=== PATIENT | female | born 1975 | race Asian ===

== ENCOUNTER 2022-01-19 13:45 | Outpatient (REF) | payer OTHER, SELFPAY ==
--- NOTE | ~2022-01-19 | US_ITS ---
EXAMINATION: US PELVIS CLINICAL INFORMATION: Dysmenorrhea COMPARISON: None TECHNIQUE: Ultrasound of the pelvis is performed using both transabdominal and transvaginal transducers along with Doppler. Transvaginal imaging is performed due to inadequate visualization transabdominally. FINDINGS: The uterus is anteverted and measures 12 x 5 x 7.6 cm in dimension. There are multiple, at least 4, focal hypoechoic uterine lesions suggestive of fibroids. These measure 3 x 2.7 x 2.9 cm in the anterior uterine body, 3.3 x 2.3 x 2.7 cm in the anterior upper uterine body or fundus, 2.5 x 2.7 x 2.5 cm in the upper posterior uterine body or fundus near the endometrium and 5 mm in the posterior uterine body. Endometrial thickness is normal measuring 0.4 cm. The cervix is normal. The ovaries are normal. The right ovary measures 2.2 x 1.6 x 2 cm. The left ovary measures 2.8 x 2.5 x 1.5 cm. There is no fluid in the pelvis. US/US pelvic and transvaginal IMPRESSION: Uterine fibroids.
== END 2022-01-19 13:46 | disposition home or self-care (01) ==
LOC: HO.US 13:45
PROVIDERS: PCP Advanced Practice Midwife; Visit Provider Advanced Practice Midwife
DX: N94.6 Dysmenorrhea, unspecified (principal)
CPT/HCPCS: 76830; 76856

== ENCOUNTER 2022-01-19 14:49 | Outpatient (REF) | payer OTHER, SELFPAY ==
--- NOTE | ~2022-01-19 | MM_ITS ---
EXAMINATION: MM SCREENING DIGITAL BREAST TOMOSYNTHESIS, BILATERAL CLINICAL INFORMATION: Screening. Asymptomatic. Age 46. Prior mammography 2012 [place] the [place] unavailable. No known family history breast cancer. The lifetime risk of breast cancer based on the Tyrer-Cuzick Model is 8%. COMPARISON: None. TECHNIQUE: Digital breast tomosynthesis is performed in both the craniocaudal and mediolateral oblique views along with computer-aided detection (CAD). Synthesized 2D images are generated from the tomosynthesis. Additional left MLO view is provided. FINDINGS: The breasts are heterogeneously dense, which may obscure small masses (ACR BI-RADS breast composition Category c). There are no significant masses, abnormal calcifications, or other abnormalities. The axilla and skin contours are unremarkable. If previous outside mammography is able to be retrieved, we will be able to make comparison in an addendum report. MM/MM tomosynthesis screening BI IMPRESSION: No mammographic evidence of malignancy. ASSESSMENT: BI-RADS 1: Negative RECOMMENDATION: Routine annual mammography screening. This patient's information was entered into a reminder system with a target due date for their next mammogram.
== END 2022-01-19 14:50 | disposition home or self-care (01) ==
LOC: HO.MAMMO 14:49
PROVIDERS: PCP Advanced Practice Midwife; Visit Provider Advanced Practice Midwife
DX: Z12.31 Encounter for screening mammogram for malignant neoplasm of breast (principal)
CPT/HCPCS: 76830; 76856; 77063; 77067

== ENCOUNTER 2022-12-28 11:44 | Outpatient (REF) | payer OTHER, SELFPAY | END 2022-12-28 11:45 | disposition home or self-care (01) | LOC: HO.LAB 11:44 | PROVIDERS: Visit Provider Internal Medicine | DX: N91.2 Amenorrhea, unspecified (principal) | CPT/HCPCS: 36415; 80076; 84443; 84702 ==

== ENCOUNTER 2023-02-20 13:11 | Outpatient (REF) | payer OTHER, SELFPAY ==
--- NOTE | ~2023-02-20 | US_ITS ---
EXAMINATION: US PELVIS CLINICAL INFORMATION: Pelvic pain. LMP 02/09/2023 COMPARISON: 01/19/2022 TECHNIQUE: Ultrasound of the pelvis is performed using both transabdominal and transvaginal transducers along with Doppler. Transvaginal imaging is performed due to inadequate visualization transabdominally. FINDINGS: Uterus: The uterus is anteverted and measures 12.5 x 5.0 x 5.6 cm. Uterine echotexture is heterogeneous. Right intramural fibroid measures 2.8 x 2.7 x 2.7 cm. Right intramural fibroid measures 2.7 x 2.3 x 2.1 cm. Right subserosal fibroid measures 1.8 x 1.6 x 1.7 cm. Left intramural fibroid measures 1.6 x 1.9 x 1.5 cm. Possible lower uterine segment fibroid measures 1.2 x 1.2 x 1.7 cm. The double wall endometrial thickness is 0.7 mm. Adnexa: Both ovaries are visualized. There is normal color flow to the adnexa. There is trace pelvic ascites. Right ovary measures 2.2 x 1.2 x 1.3 cm. Left ovary measures 2.8 x 2.2 x 3.0 cm. US/US pelvic and transvaginal IMPRESSION: Fibroid uterus.
== END 2023-02-20 13:12 | disposition home or self-care (01) ==
LOC: HO.US 13:11
PROVIDERS: PCP Internal Medicine; Visit Provider Internal Medicine
DX: R10.2 Pelvic and perineal pain (principal)
CPT/HCPCS: 76830; 76856

== ENCOUNTER 2023-06-23 09:20 | Emergency (ER) | payer OTHER, SELFPAY ==
--- NOTE | ~2023-06-23 | XR_ITS ---
EXAMINATION: XR CHEST CLINICAL INFORMATION: Chest pain. COMPARISON: None available. TECHNIQUE: Frontal view of the chest was obtained. FINDINGS: No significant abnormality is noted involving the heart, lungs, mediastinum, bony thorax or soft tissues. XR/XR chest 1V IMPRESSION: Unremarkable examination.
--- NOTE | ~2023-06-23 | CT_ITS ---
EXAMINATION: CT SCAN OF THE TEMPORAL BONES WITHOUT CONTRAST CLINICAL INFORMATION: Left otitis media, mastoiditis due to palpation COMPARISON: None available. TECHNIQUE: Multidetector helical imaging was performed in the axial plane with generation of oblique axial and coronal reformatted projections. This CT examination was performed using dose optimization techniques as appropriate, variously including the following: *Automated exposure control *Adjustment of mA and/or kV according to patient size (this includes techniques or standardized protocols for targeted exams where dose is matched to indication/reason for exam; i.e. extremities or head) *Use of iterative reconstruction technique DLP: 279 mGy-cm. FINDINGS: --Right Temporal Bone -- The middle ear cleft is clear and the ossicles are normal. Normal mineralization of the otic capsule and fissula ante fenestram is noted. The cochlea, vestibule, vestibular aqueduct, and facial nerve course are normal. The semicircular canals are normal. The internal auditory canal is normal. The external auditory canal is normal. The mastoid air cells are well aerated. The right carotid canal and jugular foramen are normal. Mild degenerative changes of the temporomandibular joint. --Left Temporal Bone -- The middle ear cleft is clear and the ossicles are normal. Normal mineralization of the otic capsule and fissula ante fenestram is noted. The cochlea, vestibule, vestibular aqueduct, and facial nerve course are normal. The semicircular canals are normal. The internal auditory canal is normal. The external auditory canal is normal. Trace opacification of the left mastoid tip. The left carotid canal and jugular foramen are normal. The temporomandibular joint is normal. -- Other Findings -- The visualized paranasal sinuses are well aerated. The visualized intracranial structures are within normal limits. CT/CT mastoid IMPRESSION: Trace opacification of the left mastoid tip. The middle ear cavities and mastoid air cells are otherwise essentially clear.
--- NOTE | 2023-06-23 09:23 | ECG_ITS ---
Test Reason : CP Blood Pressure : / mmHG Vent. Rate : 094 BPM Atrial Rate : 094 BPM P-R Int : 160 ms QRS Dur : 072 ms QT Int : 358 ms P-R-T Axes : 043 040 026 degrees QTc Int : 447 ms Normal sinus rhythm Nonspecific ST and T wave abnormality Borderline ECG No previous ECGs available Referred By: Generic ED Physician Electronically Signed By:LUCY HOUSTON
[2023-06-23 09:40] VITALS: BP 153/85; PULSE 88; RESP 20; TEMP 35.9; O2SAT 98; BMI 32.2
[2023-06-23 09:43] LABS: MANUAL DIFF FLAG NO
[2023-06-23 09:45] LABS: Basophils Percent Auto 0.3 % (0-2); Eosinophils Absolute Auto 0.1 X10*3/uL (0.0-0.4); Hematocrit 35.2 % (37.0-47.0); Imm Gran Abs Auto 0.04 X10*3/uL (0.00-0.03); Imm Gran Pct Auto 0.3 % (0.0-0.4); Lymphocytes Absolute Auto 2.6 X10*3/uL (1.2-4.9); Lymphocytes Percent Auto 22.3 % (20-40); Mean Corpuscular HGB Conc 31.3 g/dl (31.0-35.0); Mean Corpuscular Hemoglobin 18.9 pg (27.0-33.0); Mean Platelet Volume 10.1 fL (9.4-12.3); Monocytes Absolute Auto 0.8 X10*3/uL (0.1-1.2); Monocytes Percent Auto 6.4 % (2-11); Neutrophils Absolute Auto 8.1 x10*3/uL (2.0-8.3); Neutrophils Percent Auto 69.7 % (45-73); Platelet Count 379 X10*3/uL (160-400); Red Blood Count 5.82 X10*6/uL (4.20-5.50); Red Cell Distribution Width 16.6 % (11.0-16.0)
[2023-06-23 09:53] LABS: Mean Corpuscular Volume 60.5 fL (80.0-98.0)
[2023-06-23 09:54] LABS: INTERNATIONAL NORM RATIO 0.9 (0.9-1.1); Prothrombin Time 11.4 SEC (11.1-13.3)
[2023-06-23 10:01] LABS: Alanine Aminotransferase 20 U/L (0-31); Albumin Level 3.7 g/dL (3.5-5.0); Alkaline Phosphatase 64 U/L (39-117); Anion Gap 15 (12-20); Aspartate Amino Transferase 28 U/L (5-31); Bilirubin Direct 0.2 mg/dL (0.0-0.5); Bilirubin Total 0.7 mg/dL (0.0-1.0); Blood Urea Nitrogen 11 mg/dL (9-16); COVID-19 Test Negative (Negative); Calcium 9.2 mg/dL (8.4-10.2); Carbon Dioxide 23 mmol/L (22-29); Chloride 105 mmol/L (96-108); Creatinine Clr Calc Pharmacy 86.4; Estimated Glomerular Filt Rate > 60; Glucose Random 132 mg/dL (60-115); IDNOW Serial# 08D9AD1C; Magnesium 1.7 mg/dL (1.6-2.6); Sodium 139 mmol/L (135-145); Total Protein 7.5 g/dL (6.5-8.0)
[2023-06-23 10:08] LABS: Troponin-I High Sensitivity < 2.7 ng/L (<3.5-17.0)
--- NOTE | 2023-06-23 13:44 | ED.URI ---
HPI - URI/Sore Throat General Chief Complaint: Upper Respiratory Symptoms Stated Complaint: chest pain/ cold like symptoms Time Seen by Provider: 06/23/23 13:07 Source: patient Mode of arrival: ambulatory Limitations: no limitations History of Present Illness HPI Narrative: patient is a 47-year-old female who presents emergency department for evaluation of upper respiratory symptoms. Onset 2 weeks ago. Progressively worsening with cough, body aches, and fevers with T-max 102 degrees at home which responds to Tylenol. The past 5 days she has noticed increased pain predominantly to the left lateral neck, and worsening of her fevers. She previously had a sore throat but this has since resolved. She has intermittent chest tightness predominantly when she is coughing. She states that her daughter was recently ill with similar symptoms but tested negative for COVID and flu. Related Data Previous Rx's Medication Instructions Recorded amoxicillin 500 mg capsule 1,000 mg (2 x 500 mg) PO DAILY 10 06/23/23 days #20 caps Allergies Allergy/AdvReac Type Severity Reaction Status Date / Time Bleach (Sodium Hypochlorite) Allergy Unknown RASH Verified 06/23/23 09:43 [BLEACH (SODIUM HYPOCHLORITE)] Review of Systems Review of Systems: Yes all other systems are reviewed and are negative [facility]LY [facility] Past Medical History Attestation statement: The following information was validated with the patient. Source: old records reviewed Social History Social History (Updated 03/16/22 @ 16:18 by Magno Tinajero) Alcohol intake: never Patient Tobacco Use Status: Never used Tobacco Advance Directives: No Advance Directives Information Provided: No Physical Exam Vital Signs: Vital Signs: Last Vital Signs Temp 96.6 F L 06/23/23 09:40 Pulse 88 06/23/23 09:40 Resp 20 06/23/23 09:40 BP 153/85 H 06/23/23 09:40 Pulse Ox 98 06/23/23 09:40 O2 Del Method Room Air 06/23/23 09:40 BMI result Body Mass Index 32.2 Appearance: Alert.?Oriented to person, place and time. No acute distress.?Normal affect. Eyes: Pupils equal, round and reactive to light.? ENT: TM normal bilaterally. Pharynx Mildly erythematous without exudates, no hypertrophy. No trismus. No drooling. Uvula midline.?? Neck: Normal inspection.? Neck supple.?? Left cervical lymphadenopathy, tenderness upon palpation over the mastoid on the left. CVS: Heart sounds normal. Normal heart rate and rhythm.? Pulses normal.?? Respiratory: No respiratory distress.? Lung sounds clear to auscultation bilaterally?? Abdomen: Soft and non-tender. Normoactive bowel sounds. Skin: Skin warm and dry.? Normal skin color.? ? Extremities: No lower extremity edema.? Neuro: Moves all extremities spontaneously. Sensation intact bilaterally. No motor deficits. Ambulates with normal steady gait. Medical Decision Making Medical Decision Making [facility] Narrative: Patient is a 47-year-old female presenting for evaluation of upper respiratory symptoms. COVID-19 and influenza testing are negative. Strep a testing is positive. CT of the mastoid reveals trace [place] otherwise clear mastoid cells. At this time history and physical exam not consistent with ACS/PE/pneumonia. Well-appearing, nontoxic, afebrile, no tachycardia or tachypnea/hypoxia. Speaking clear full sentences, ambulatory with steady gait. Will send prescription for amoxicillin to pharmacy and advised outpatient follow-up with primary care provider. Discussed conservative treatment including rest, hydration, Tylenol/ibuprofen as needed for fever and body aches, saline nasal spray, humidifier, [id number] cold medication. Advised to follow-up with primary care provider as needed, discussed reasons to return back to the emergency department. All questions were answered. Patient discharged home in stable condition. Differential Diagnosis Differential Diagnoses: The differential diagnosis associated with the presentation includes ( As noted above) Admission/Observation Consideration of admission/observation: Escalation of care including admission/observation considered ( see narrative above) Lab Data [facility] Lab Attestation statement: I reviewed the patient's lab results. strep A positive. COVID and influenza negative. Mild leukocytosis with microcytic anemia that does not meet transfusion criteria. Overall unremarkable CMP. High sensitive troponin negative. 06/23/23 09:39 06/23/23 09:39 Labs: Lab Results 06/23/23 Range/Units 09:39 WBC 11.6 H (4.8-10.8) X10*3/uL RBC 5.82 H (4.20-5.50) X10*6/uL Hgb 11.0 L (12.0-16.0) g/dl Hct 35.2 L (37.0-47.0) % MCV 60.5 L (80.0-98.0) fL MCH 18.9 L (27.0-33.0) pg MCHC 31.3 (31.0-35.0) g/dl RDW 16.6 H (11.0-16.0) % Plt Count 379 (160-400) X10*3/uL MPV 10.1 (9.4-12.3) fL Immature Gran % (Auto) 0.3 (0.0-0.4) % Neut % (Auto) 69.7 (45-73) % Lymph % (Auto) 22.3 (20-40) % Ida % (Auto) 6.4 (2-11) % Eos % (Auto) 1.0 (0-4) % Baso % (Auto) 0.3 (0-2) % Lymph # (Auto) 2.6 (1.2-4.9) X10*3/uL Ida # (Auto) 0.8 (0.1-1.2) X10*3/uL Eos # (Auto) 0.1 (0.0-0.4) X10*3/uL Baso # (Auto) 0.0 (0.0-0.2) X10*3/uL Abs Immat Gran (auto) 0.04 H (0.00-0.03) X10*3/uL Absolute Neuts (auto) 8.1 (2.0-8.3) x10*3/uL Absolute Nucleated RBC 0.000 (0.0-0.012) X10*3/uL Nucleated RBC % (auto) 0.0 (0.0-0.2) /100WBC PT 11.4 (11.1-13.3) SEC INR 0.9 (0.9-1.1) Sodium 139 (135-145) mmol/L Potassium 4.0 (3.3-5.1) mmol/L Chloride 105 (96-108) mmol/L Carbon Dioxide 23 (22-29) mmol/L Anion Gap 15 (12-20) BUN 11 (9-16) mg/dL Creatinine 0.74 (0.5-1.4) mg/dL Estim Creat Clear Calc 86.4 Estimated GFR > 60 Random Glucose 132 H (60-115) mg/dL Calcium 9.2 (8.4-10.2) mg/dL Magnesium 1.7 (1.6-2.6) mg/dL Total Bilirubin 0.7 (0.0-1.0) mg/dL Direct Bilirubin 0.2 (0.0-0.5) mg/dL AST 28 (5-31) U/L ALT 20 (0-31) U/L Alkaline Phosphatase 64 (39-117) U/L Troponin I High Sens < 2.7 (<3.5-17.0) ng/L Total Protein 7.5 (6.5-8.0) g/dL Albumin 3.7 (3.5-5.0) g/dL COVID-19 (NOHEMI) Negative (Negative) COVID-19 Clin Com See Note Independent Interpretation I performed an independent interpretation of an: EKG and Plain X-Ray ( I personally interpreted CXR and agree with radiologist impression.) Radiology Impression Discussion of test interpretation with radiology: I have reviewed the radiologist's reading. Radiologist Impression: XR/XR chest 1V IMPRESSION: Unremarkable examination. CT/CT mastoid IMPRESSION: Trace opacification of the left mastoid tip. The middle ear cavities and mastoid air cells are otherwise essentially clear. External Record Review External record reviewed: Outpatient record Prescription Management I considered prescription management with: Antibiotic Discharge Plan Discharge Clinical Impression: Acute streptococcal pharyngitis Patient Disposition: Home, Self-Care Instructions: Pharyngitis (ED), Strep Throat (ED) Prescriptions: New amoxicillin 500 mg capsule 1,000 mg PO DAILY 10 Days Qty: 20 0RF Referrals: Raissa Veras MD [Primary Care Provider] -
[2023-06-23 14:22] LABS: IDNOW Serial# 58CA691E; Strep A Nucleic Acid Positive (Negative)
[2023-06-23 14:32] LABS: IDNOW Serial# BCCEAD1C; Influenza A Negative (Negative); Influenza B2 Negative (Negative)
[2023-06-23 14:45] VITALS: BP 133/84; PULSE 73; RESP 16; TEMP 36.9; O2SAT 100
[2023-06-26 18:29] LABS: White Blood Count 11.6 X10*3/uL (4.8-10.8)
== END 2023-06-23 15:21 | disposition home or self-care (01) ==
PROVIDERS: Nurse Practitioner Family; Emergency Provider Emergency Medicine; PCP Internal Medicine
DX: J02.0 Streptococcal pharyngitis (principal); R07.89 Other chest pain; R05.9 Cough, unspecified; M79.10 Myalgia, unspecified site; H66.92 Otitis media, unspecified, left ear; Z11.52 Encounter for screening for COVID-19; Z20.822 Contact with and (suspected) exposure to COVID-19; Z79.899 Other long term (current) drug therapy
CPT/HCPCS: 70481; 71045; 80048; 80076; 83735; 84484; 85025; 85610; 87502; 87635; 87651; 93005; 99284

== ENCOUNTER → 2023-06-23 09:23 | Outpatient (BNV) | payer OTHER, SELFPAY | PROVIDERS: Emergency Provider Emergency Medicine; PCP Internal Medicine; Visit Provider Internal Medicine | DX: R07.9 Chest pain, unspecified (principal) | CPT/HCPCS: 93010 ==

== ENCOUNTER 2023-07-02 13:51 | Outpatient (REF) | payer OTHER, SELFPAY ==
[2023-07-03 02:33] LABS: CT PCR NOT DETECTED (Not Detect.); NG PCR NOT DETECTED (Not Detect.)
[2023-07-05 05:09] LABS: Follicle Stimulating Hormone 1.7 mIU/mL; Lutenizing Hormone 1.7 mIU/mL; Prolactin 11.9 ng/mL
[2023-07-07 09:29] LABS: HPV mRNA E6/E7 rflx Not Detected (Not Detected)
== END 2023-07-02 13:52 | disposition home or self-care (01) ==
LOC: HO.LAB 13:51
PROVIDERS: PCP Internal Medicine; Visit Provider Obstetrics & Gynecology
DX: Z01.419 Encounter for gynecological examination (general) (routine) without abnormal findings (principal); Z11.51 Encounter for screening for human papillomavirus (HPV); N93.9 Abnormal uterine and vaginal bleeding, unspecified
CPT/HCPCS: 0353U; 36415; 83001; 83002; 84146; 84443; 84702; 85027; 87624; 88142; 99202

== ENCOUNTER 2023-07-02 13:51 | Outpatient (AMB) | payer OTHER, SELFPAY ==
--- NOTE | 2023-07-02 13:58 | MHC.OFFVIS ---
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 Uterine echotexture is heterogeneous. Right intramural fibroid measures 2.8 x 2.7 x 2.7 cm. Right intramural fibroid measures 2.7 x 2.3 x 2.1 cm. Right subserosal fibroid measures 1.8 x 1.6 x 1.7 cm. Left intramural fibroid measures 1.6 x 1.9 x 1.5 cm. Possible lower uterine segment fibroid measures 1.2 x 1.2 x 1.7 cm. The double wall endometrial thickness is 0.7 mm. Adnexa: Both ovaries are visualized. There is normal color flow to the adnexa. There is trace pelvic ascites. Right ovary measures 2.2 x 1.2 x 1.3 cm. Left ovary measures 2.8 x 2.2 x 3.0 cm. Last co testing was many years ago Last mammogram was BI-RADS 1 in 01/13 [facility] Social History Alcohol intake: never Patient Tobacco Use Status: Never used Tobacco Review of Systems Const All systems reviewed & are unremarkable except as noted in HPI and below Card Reports as per HPI Resp Reports as per HPI GI Reports as per HPI and Reports no additional complaints Reports as per HPI Physical Exam Vital Signs: Last Vital Signs Pulse 86 07/02/23 14:08 BP 130/84 07/02/23 14:08 BMI result Body Mass Index 31.7 Const General: cooperative, healthy appearing and comfortable Chest Chest palpation & inspection: normal inspection of the chest and normal palpation of entire chest wall Breast/axilla inspection: normal inspection of the breasts and normal inspection of the axillae Breast/axilla palpation: normal palpation of the breasts, normal palpation of the axillae and no axillary lymphadenopathy Resp Effort & Inspection: normal respiratory effort Auscultation: clear to auscultation bilaterally Percussion: percussion normal Cardio Palpation: normal PMI Rate: regular rate Rhythm: regular rhythm Heart sounds: no murmurs and no rubs Peripheral pulses: Peripheral pulses 2+ throughout GI Inspection: Yes normal to inspection Palpation (GI): Soft to palpation, nontender, no guarding, not rigid and No hepatosplenomegaly present Percussion: Yes normal to percussion Auscultation: normal bowel sounds Rectal Exam - Female: deferred General: Yes bladder normal to palpation External Female Exam: No lesion Speculum Exam - Vagina: normal appearance of the vagina, normal palpation, normal vaginal discharge and not erythematous Speculum Exam - Cervix: normal appearance of the cervix and normal palpation Bimanual exam- vagina & uterus: normal bimanual exam, normal palpation, uterine size normal, bladder normal to palpation, consistency normal and normal palpation Bimanual Exam- Adnexa, other: normal adnexae, no masses and no tenderness Assessment & Plan Assessment & Plan (1) Abnormal uterine bleeding: Code(s): N93.9 - Abnormal uterine and vaginal bleeding, unspecified Plan: Screening mammogram, Co testing done, GC and chlamydia taken CBC, TSH, HCG, prolactin, FSH/LH order and repeat pelvic ultrasound ordered. Discussed with the patient the different causes of abnormal bleeding including thyroid disorders, uterine and ovarian pathology, endometrial hyperplasia, carcinoma and other potential causes. Discussed with the patient the work up including CBC (to r/o anemia), TSH, pelvic Ultrasound, endometrial biopsy to r/o endometrial pathology. All questions answered and the patient verbalized understanding. Instructed the patient to schedule an appointment for an endometrial biopsy in 2 weeks. Orders: Orders Lutenizing Hormone Today N93.9 - Abnormal uterine and vaginal bleeding, unspecified Complete Blood Count no Diff Today N93.9 - Abnormal uterine and vaginal bleeding, unspecified TSH reflex Free T4 Today N93.9 - Abnormal uterine and vaginal bleeding, unspecified Prolactin Today N93.9 - Abnormal uterine and vaginal bleeding, unspecified HCG Quantitative Today N93.9 - Abnormal uterine and vaginal bleeding, unspecified Follicle Stimulating Hormone Today N93.9 - Abnormal uterine and vaginal bleeding, unspecified US pelvic and transvaginal Today N93.9 - Abnormal uterine and vaginal bleeding, unspecified MM screening mammo BI Today Z12.31 - Encounter for screening mammogram for malignant neoplasm of breast Coding Level of Care Code New Pt Level 3 (45398) Diagnoses Abnormal uterine bleeding N93.9
[2023-07-02 14:08] VITALS: BP 130/84; PULSE 86; BMI 31.7
== END 2023-07-02 16:08 | disposition home or self-care (01) ==
LOC: HO.HWS 13:51
PROVIDERS: PCP Internal Medicine; Visit Provider Obstetrics & Gynecology
DX: N93.9 Abnormal uterine and vaginal bleeding, unspecified (principal)
CPT/HCPCS: 99203

== ENCOUNTER 2023-07-23 14:05 | Outpatient (REF) | payer OTHER, SELFPAY ==
--- NOTE | ~2023-07-23 | US_ITS ---
EXAMINATION: US PELVIS CLINICAL INFORMATION: Dysfunctional uterine bleeding, fibroids, last menstrual period 07/07/2023. COMPARISON: Pelvic ultrasound February 20, 2023. TECHNIQUE: Ultrasound of the pelvis is performed using both transabdominal and transvaginal transducers along with Doppler. Transvaginal imaging is performed due to inadequate visualization transabdominally. FINDINGS: The uterus measures 12.0 x 5.9 x 7.2 cm, volume 264 mL. Visualization is limited due to uterine heterogeneity and multiple fibroids. Largest fibroids as follows: Right 2.9 x 2.8 x 3.4 cm, previously 2.9 x 3.3 x 3.0 cm 2.5 x 2.6 x 3.1 cm, previously 2.7 x 2.3 x 2.1 cm 1.4 x 1.3 x 1.9 cm fibroid not previously imaged. 1.5 x 1.5 x 1.7 cm probable fibroid not previously imaged. 1.3 x 1.2 x 1.7 cm lower uterine segment fibroid, previously 1.3 x 1.2 x 1.7 cm. Endometrial thickness is 13 mm. Nabothian cysts. Right ovary measures 2.5 x 1.4 x 1.3 cm, volume 2.2 mL. Left ovary measures 1.8 x 1.8 x 1.3 cm, volume 2.3 mL. Bilateral ovaries are grossly unremarkable on limited images, and were better visualized on transabdominal ultrasound images. No significant free fluid. US/US pelvic and transvaginal IMPRESSION: 1. Fibroid uterus. 2. Endometrial thickness of 13 mm.
== END 2023-07-23 14:06 | disposition home or self-care (01) ==
LOC: HO.US 14:05
PROVIDERS: PCP Internal Medicine; Visit Provider Obstetrics & Gynecology
DX: N93.9 Abnormal uterine and vaginal bleeding, unspecified (principal)
CPT/HCPCS: 76830; 76856

== ENCOUNTER 2023-07-26 14:03 | Outpatient (AMB) | payer OTHER, SELFPAY ==
--- NOTE | 2023-07-26 14:11 | MHC.OFFVIS ---
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 She has a pleasant 47-year-old woman with history of hypertension for many years. Patient is also recent history of dysmenorrhea and abnormal uterine bleeding with anemia. She has been noticing symptoms of chest pain sometimes with exertion. Sometimes happens at rest. She is also associated exertional shortness of breath. She also has symptoms of palpitation with irregular heartbeat. No prolonged fast heart rate. She denies any orthopnea, PND, leg edema. No lightheadedness, syncope. She comes for evaluation further cardiac history. She had EKG performed in May which showed normal sinus rhythm nonspecific ST T wave changes. She is concerned about underlying cardiovascular disease due to family history. [facility] Medical History HTN (hypertension) Surgical History Hx of lumpectomy Family History Father CAD (coronary artery disease) CHF (congestive heart failure) Mother CAD (coronary artery disease) CHF (congestive heart failure) Social History Alcohol intake: never Patient Tobacco Use Status: Never used Tobacco Review of Systems Eyes Denies loss of vision ENT Denies dizziness and Denies hearing loss Card Denies chest pain, Denies claudication, Denies leg edema, Denies lightheadedness, Denies palpitations, Denies dyspnea, Denies dyspnea on exertion and Denies orthopnea Resp Denies cough, Denies excessive phlegm production, Denies dyspnea, Denies dyspnea on exertion and Denies wheezing GI Denies abdominal pain, Denies hematochezia, Denies change in bowel habits, Denies nausea and Denies vomiting Denies urinary frequency and Denies dysuria Musc Denies arthralgias, Denies muscle weakness, Denies numbness and Denies other (frequent falls) Skin/Breast Denies nail changes and Denies rash Neuro Denies Abnormal speech present, Denies dizziness, Denies loss of vision, Denies memory loss and Denies numbness Psych Denies depression and Denies memory loss Endo Denies palpitations Juaquin/Lymph Reports easy bruising and Reports other (anemia) Aller/Immun Denies wheezing Physical Exam Vital Signs: Last Vital Signs Pulse 86 07/26/23 14:12 BP 120/70 07/26/23 14:12 BMI result Body Mass Index 32.5 Const General: cooperative, comfortable, no acute distress, alert, awake and Physically active Nutritional Appearance: obese Orientation/consciousness: patient oriented x3 Limitations: no limitations HEENT Head: Yes normocephalic and Yes atraumatic Neck Neck: Yes trachea midline, Yes supple and Yes no JVD Resp Effort & Inspection: normal respiratory effort Auscultation: clear to auscultation bilaterally Cardio Jugular venous distension: no JVD Palpation: normal PMI Rate: regular rate Rhythm: regular rhythm Heart sounds: S1 normal heart sound present, S2 normal heart sound present, no click, no gallops, no murmurs and no rubs GI Auscultation: normal bowel sounds Skin General skin exam: no rashes or lesions noted Neuro General: patient oriented x3 and no focal motor deficits Speech: No Abnormal speech present Extrem General: Yes no clubbing, cyanosis or edema Psych Appearance: grossly normal Assessment & Plan Assessment & Plan (1) Chest pain: Code(s): R07.9 - Chest pain, unspecified Plan: Patient intermittent episodes of exertional chest pain with some atypical features as well as shortness of breath on exertion. She has longstanding history of hypertension given her age and abnormal EKG will pursue exercise myocardial perfusion imaging to rule out myocardial ischemia and obstructive coronary artery disease as cause of her symptoms. Will also suggest an echocardiogram to evaluate for LV systolic and diastolic function to evaluate for hypertensive heart disease as well as pulmonary hypertension. These tests will be scheduled in near future. Further treatment based on the findings. It is possible that some of her symptoms are related especially exertional shortness of breath related to deconditioning and weight gain. She is working on the same. (2) Palpitations: Code(s): R00.2 - Palpitations Plan: Symptoms of intermittent palpitations. Would suggest her to have a Holter monitor to further assess for any significant arrhythmias especially atrial fibrillation that could impact long-term prognosis and treatment. This was discussed with her. Avoidance of stimulants was discussed. Stress mitigation strategies were discussed. (3) HTN (hypertension): Code(s): I10 - Essential (primary) hypertension Plan: Hypertension which is currently well optimized. Continue current therapy. Importance of good blood pressure control was discussed advised to monitor blood pressure at home maintain a log. Low-salt diet was discussed. Participate in aggressive lifestyle modification regular physical activity and weight loss program was discussed. She understands agrees. Will follow up in the clinic after above-mentioned test. Thank you for allowing me to partake in her care. Orders: Orders CA stress test Today R07.9 - Chest pain, unspecified ECG 14 day holter monitor Today R00.2 - Palpitations NM cardiolite stress test 2 Weeks R07.9 - Chest pain, unspecified CA echo transthoracic complete Today R07.9 - Chest pain, unspecified Coding Level of Care Code New Pt Level 4 (62301) Diagnoses Chest pain R07.9 Palpitations R00.2 HTN (hypertension) I10
[2023-07-26 14:12] VITALS: BP 120/70; PULSE 86; BMI 32.5
== END 2023-07-26 14:53 | disposition home or self-care (01) ==
PROVIDERS: PCP Internal Medicine; Visit Provider Internal Medicine Cardiovascular Disease
DX: R07.9 Chest pain, unspecified (principal); R00.2 Palpitations; I10 Essential (primary) hypertension
CPT/HCPCS: 99204

== ENCOUNTER → 2023-07-26 14:03 | Outpatient (BNVA) | payer OTHER, SELFPAY | PROVIDERS: PCP Internal Medicine; Visit Provider Internal Medicine Cardiovascular Disease | DX: R07.9 Chest pain, unspecified (principal); R00.2 Palpitations; I10 Essential (primary) hypertension | CPT/HCPCS: 99202 ==

== ENCOUNTER 2023-08-15 14:02 | Outpatient (REF) | payer OTHER, SELFPAY | END 2023-08-15 14:03 | disposition home or self-care (01) | LOC: HO.LNP 14:02 | PROVIDERS: PCP Internal Medicine; Visit Provider Obstetrics & Gynecology | DX: N93.9 Abnormal uterine and vaginal bleeding, unspecified (principal); Z32.02 Encounter for pregnancy test, result negative | CPT/HCPCS: 58100; 81025; 88305 ==

== ENCOUNTER 2023-08-15 14:02 | Outpatient (AMB) | payer OTHER, SELFPAY ==
[2023-08-15 14:21] VITALS: BP 132/70; BMI 32.3
--- NOTE | 2023-08-15 14:21 | MHC.OFFVIS ---
Intake Vital Signs 08/15/23 14:21 Height 5 ft 1 in Weight 171 lb BMI 32.3 BP 132/70 Intake Visit Reasons: Ultrasound results/EMB Allergies carvedilol Allergy (Mild, Verified 07/26/23 14:16) Dizziness Bleach (Sodium Hypochlorite) [BLEACH (SODIUM HYPOCHLORITE)] Allergy (Unknown, Verified 07/02/23 14:05) RASH HPI HPI Comments History of Present Illness Details Presenting for EMB [facility] Medical History HTN (hypertension) Surgical History Hx of lumpectomy Family History Father CAD (coronary artery disease) CHF (congestive heart failure) Mother CAD (coronary artery disease) CHF (congestive heart failure) Social History Alcohol intake: never Patient Tobacco Use Status: Never used Tobacco Review of Systems Const All systems reviewed & are unremarkable except as noted in HPI and below Reports as per HPI and Reports no additional complaints GI Reports no additional complaints Reports no additional complaints Physical Exam Vital Signs: Last Vital Signs BP 132/70 08/15/23 14:21 BMI result Body Mass Index 32.3 Office Procedures Endometrial Biopsy Details: The patient was counseled regarding the indication and benefits of endometrial sampling to rule out endometrial pathology including not limited to endometrial hyperplasia or endometrial cancer and others; The alternatives (Either do nothing vs. hysteroscopy D&C) & the risks were discussed with the patient including but not limited: pain, uterine perforation, bleeding, infection, possible injury to bladder, bowel, ureter, possible need for blood transfusion with all its possible risks. The patient verbalized understanding all questions answered and signed consent. Urine test done in the office was negative The patient was placed into the dorsal lithotomy position; a speculum was inserted in the vagina. Using aseptic technique for the procedure, the cervix was cleansed with Betadine. The anterior lip of the cervix was grasped with a single tooth tenaculum. The uterus was sounded to 7 cm with a 4 mm Pipelle was used. Tissues samples were obtained and placed in formalin, in a patient labeled container and sent to the pathology department. At the end of the procedure, there was minimal bleeding noted The patient tolerated the procedure well and was discharged in good condition with the following instructions: Nothing in the vagina until the bleeding stops. No sex until the bleeding stops, to call if any of the following occurs: fever (>100.4), flu-like symptoms, abdominal pain, heavy bleeding, four smelling vaginal discharge. The patient was instructed to schedule a Follow up appointment in 2 weeks to discuss pathology results of the biopsy and treatment options. This note was generated with a voice recognition program. Some errors may have been overlooked during the review of this note. Sometimes these errors may affect the content or meaning of a given sentence. [id number] Biopsy Results AMB Test Urine AMB Test Urine Negative Last Edit by WILBER Momin on 08/15/23 14:24 Assessment & Plan Assessment & Plan (1) Abnormal uterine bleeding: Code(s): N93.9 - Abnormal uterine and vaginal bleeding, unspecified Plan: EMB done, see procedure note Orders: Orders AMB HCG Urine Test Today Z32.02 - Encounter for test, result negative AMB Endometrial Biopsy Today N93.9 - Abnormal uterine and vaginal bleeding, unspecified Coding Level of Care Code Procedure Only Diagnoses Abnormal uterine bleeding N93.9 CPT Codes Endometrial Biopsy - CPT: 67175-[id number] Biopsy ([id number])
== END 2023-08-15 14:33 | disposition home or self-care (01) ==
LOC: HO.HWS 14:02
PROVIDERS: PCP Internal Medicine; Visit Provider Obstetrics & Gynecology
DX: N93.9 Abnormal uterine and vaginal bleeding, unspecified (principal); Z32.02 Encounter for pregnancy test, result negative
CPT/HCPCS: 58100

== ENCOUNTER → 2023-09-04 07:58 | Outpatient (REF) | payer OTHER, SELFPAY ==
--- NOTE | 2023-09-04 08:02 | CA_ITS ---
Acquisition Time: 2023-09-04 09:10:11 Total Exercise Time: 00:07:01 Test Indications: CHEST PAIN Medications: LOSARTAN/HCTZ VERAPAMIL Protocol: KOREY Max HR: 173 BPM 101% of Pred: 171 BPM Max BP: 208/098 mmHG Max Work Load: 8.5 METS Exercise stress test exercise 7 min 1 sec of Korey protocol achieving 101% MPHR, without anginal symptoms, without arrhythmias, with max systolic 208, max diastolic 102, with T wave inversion lead 3 and aVF. Test reviewed with Dr. Cooley Referred By: Saúl Cooley Overread By: Elba Elkins
--- NOTE | 2023-09-04 08:02 | HM_ITS ---
Conclusion: 1. Patient was monitored for total period of 14 days and 4 hours 2. Baseline was normal sinus rhythm with average heart of 84 beats per minute 3. Rare PACs noted 4. Nine SVT events noted, fastest at 188 beats per minute and longest at 14 beats 5. No patient reported events MTDD
--- NOTE | 2023-09-04 08:02 | CA_ITS ---
Transthoracic Echocardiogram Patient (Last, First, Middle): Laina Bell, Gender: Female Date of : 1975 Age: 47 Procedure Date: 09/04/2023 Procedure Type: Transthoracic Echocardiogram Location: OP Height: 154.94 cm Weight: 77.11 kg BSA: 1.76 m2 Heart Rate: bpm BP: 128 / 70 mmHg Bedspread Folder: Referring MD: Saúl Cooley MD Payroll Representative: Saúl Cooley MD Symptoms: R07.9 - Chest pain, unspecified Study Quality: Adequate w Contrast ECG Rhythm: Sinus Conclusions: - Essentially normal study Findings Procedure Information Contrast agent, definity, is being given per protocol without apparent complications. Left Ventricle Normal left ventricular size, thickness, and systolic function. The visually estimated ejection fraction is between 60-65%. Spectral Doppler is indicative of a normal filling pattern. Right Ventricle Normal right ventricular cavity size and systolic function. Atria Both atria are normal in size. There is no evidence of interatrial shunt. Aortic Valve The aortic valve structure and function is likely normal. There is no aortic valve stenosis. There is no aortic valve regurgitation. Mitral Valve Normal mitral valve structure and function. There is trace mitral valve regurgitation. There is no mitral valve stenosis. Pulmonic Valve The pulmonic valve is likely normal. There is trace pulmonic valve regurgitation. Tricuspid Valve Normal tricuspid valve structure. There is trace tricuspid valve regurgitation. The right ventricular systolic pressure is normal. The right ventricular systolic pressure is 19 mmHg. Normal right atrial pressure. There is no evidence of pulmonary hypertension. Great Vessels The pulmonary artery was not well visualized. There is no dilatation of the ascending aorta measuring 2.70 cm. Venous The inferior vena cava is normal in size and collapses greater than 50% with inspiration. Pericardium/Pleural There is no evidence of pericardial effusion. Prior Study Comparison No prior study available for comparison. Measurements 2D Linear Measurements IVSd: 1.01 0.6-0.9/0.6-1.0 cm LVIDd: 4.09 3.9-5.3/4.2-5.9 cm LVIDd Index: 2.32 2.4-3.2/2.2-3.1 cm/m2 LVIDs: 2.71 2.0-3.6 cm LVPWd: 1.05 0.7-1.1 cm Ao Root: 2.60 2.1-3.5 cm LA Diam: 3.40 2.7-3.8/3.0-4.0 cm LAIDs Index: 1.93 1.5-2.3 cm/m2 LV Mass: 170.76 67-162/88-224 g LV Mass Index: 97.02 43-95/49-115 g/m2 LVOT Diam: 1.90 3.0+(-)1.3 cm Mitral Valve MV Pk E: 0.96 MV PK A: 0.67 MV Decel Time: 147.00 E/A: 1.40 E'Lateral: 12.30 E'Medial: 6.64 E/E' Med: 14.40 E/E' Lat: 7.80 PHT: 43.00 MVA PHT: 5.12 Decel [place]: 6.49 Aortic Valve AoV Pk Michael: 1.46 AoV Mn Michael: 0.90 AoV VTI: 0.32 AoV Pk Grad: 9.00 Aov Mn Grad: 4.00 APRIL Cont.VTI: 2.03 LVOT LVOT Pk Michael: 1.04 LVOT Mn Michael: 0.64 LVOT VTI: 0.23 LVOT Pk Grad: 4.00 LVOT Mn Grad: 2.00 LVOT Diam: 1.90 LVOT Area: 2.84 Diastolic Function MV Pk E: 0.96 MV Pk A: 0.67 E/A: 1.40 E'Medial: 6.64 E/E' Med: 14.40 E' Laterial: 12.30 E/E' Lat: 7.80 Right Ventricle TAPSE (mm): 21.00 TVS' Michael: 9.00 Tricuspid Valve TR Pk Michael: 2.00 TR Pk Grad: 16.00 RA Press: 3.00 RVSP: 19.00 Great Vessels Aorta Ao Root-2D: 2.60 2.0-3.7 cm Ao Asc: 2.70 2.1-3.4 cm Pulmonary Valve PV Pk Michael: 1.03 Peak PV Grad: 4.00 Updated in Other Vendor System with Status of Final Saúl Cooley MD electronically signed on 09/05/2023 4:31:07 PM with status of Final
== END ==
LOC: HO.CARD 07:58
PROVIDERS: PCP Internal Medicine; Visit Provider Internal Medicine Cardiovascular Disease
DX: R07.9 Chest pain, unspecified (principal); R00.2 Palpitations
CPT/HCPCS: 93017; 93246; 93306; Q9957

== ENCOUNTER → 2023-09-04 08:02 | Outpatient (BNV) | payer OTHER, SELFPAY | PROVIDERS: PCP Internal Medicine; Visit Provider Nurse Practitioner | DX: R00.0 Tachycardia, unspecified (principal) | CPT/HCPCS: 93016; 93018; 93248; 93306 ==

== ENCOUNTER 2023-09-17 15:34 | Outpatient (REF) | payer OTHER, SELFPAY ==
--- NOTE | ~2023-09-17 | MM_ITS ---
EXAMINATION: MM SCREENING DIGITAL BREAST TOMOSYNTHESIS, BILATERAL CLINICAL INFORMATION: Screening. Asymptomatic. COMPARISON: Mammography: This study is compared with the only prior mammogram from 2021. TECHNIQUE: Digital breast tomosynthesis is performed in both the craniocaudal and mediolateral oblique views along with computer-aided detection (CAD). Synthesized 2D images are generated from the tomosynthesis. FINDINGS: There are scattered areas of fibroglandular density (ACR BI-RADS breast composition Category b). There are no significant masses, abnormal calcifications, or other abnormalities. MM/MM tomosynthesis screening BI IMPRESSION: No mammographic evidence of malignancy. ASSESSMENT: BI-RADS BI-RADS 1 - Negative RECOMMENDATION: Routine annual mammography screening. 1 year F/U This examination should not preclude the clinical evaluation of a suspicious palpable abnormality. This patient's information was entered into a reminder system with a target due date for their next mammogram.
== END 2023-09-17 15:35 | disposition home or self-care (01) ==
LOC: HO.MAMMO 15:34
PROVIDERS: PCP Internal Medicine; Visit Provider Obstetrics & Gynecology
DX: Z12.31 Encounter for screening mammogram for malignant neoplasm of breast (principal)
CPT/HCPCS: 77063; 77067

== ENCOUNTER → 2023-09-17 15:45 | Outpatient (BNV) | payer OTHER, SELFPAY | PROVIDERS: PCP Internal Medicine; Visit Provider Radiology Diagnostic Radiology | DX: Z12.31 Encounter for screening mammogram for malignant neoplasm of breast (principal) | CPT/HCPCS: 77063; 77067 ==

== ENCOUNTER → 2023-10-15 15:19 | Outpatient (BNVA) | payer OTHER, SELFPAY | PROVIDERS: PCP Internal Medicine; Visit Provider Internal Medicine Cardiovascular Disease | DX: I47.10 Supraventricular tachycardia, unspecified (principal); I10 Essential (primary) hypertension | CPT/HCPCS: 99212 ==

== ENCOUNTER 2023-10-15 15:22 | Outpatient (AMB) | payer OTHER, SELFPAY ==
[2023-10-15 15:23] VITALS: BP 150/90; PULSE 78; BMI 32.3
--- NOTE | 2023-10-15 15:23 | A.OFFVIS_ITS ---
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 A stress test at moderate workload was negative for ischemia. Echocardiogram shows normal study. Holter monitor shows rare PACs with short burst of SVT. She did not record any symptoms. She says she is stopped taking verapamil for 2 weeks as this was giving her rapid heart rate and fatigue. She has not been measuring her blood pressure at home. She did have hypertensive blood pressure response to exercise. She has been taking losartan regularly. Denies any lightheadedness, syncope. Continues to have chest pain in between her scapula as well as in the front of the chest with deep breathing. No clear exertional chest pain. No heart failure symptoms. [facility] Medical History (Updated 10/15/23 @ 16:49 by Saúl Cooley MD) HTN (hypertension) Surgical History Hx of lumpectomy Family History Father CAD (coronary artery disease) CHF (congestive heart failure) Mother CAD (coronary artery disease) CHF (congestive heart failure) Social History Alcohol intake: never Patient Tobacco Use Status: Never used Tobacco Review of Systems Const Denies chills, Denies fatigue, Denies fever(s), Denies frequent falls, Denies weakness, Denies weight gain and Denies weight loss ENT Denies dizziness Card Denies chest pain, Denies leg edema, Denies lightheadedness, Denies palpitations, Denies dyspnea and Denies dyspnea on exertion Resp Denies cough, Denies dyspnea and Denies dyspnea on exertion GI Denies hematochezia Musc Denies abnormal gait, Denies muscle weakness, Denies numbness, Denies radiating pain into limb and Denies tingling Neuro Denies Abnormal speech present, Denies abnormal gait, Denies dizziness, Denies frequent falls, Denies numbness, Denies tingling and Denies weakness Endo Denies fatigue and Denies palpitations Physical Exam Vital Signs: Last Vital Signs Pulse 78 10/15/23 15:23 BP 150/90 H 10/15/23 15:23 BMI result Body Mass Index 32.3 Const General: cooperative, comfortable, no acute distress, alert, awake and Physically active Nutritional Appearance: obese Orientation/consciousness: patient oriented x3 Limitations: no limitations HEENT Head: Yes normocephalic and Yes atraumatic Neck Neck: Yes trachea midline, Yes supple and Yes no JVD Resp Effort & Inspection: normal respiratory effort Auscultation: clear to auscultation bilaterally Cardio Jugular venous distension: no JVD Palpation: normal PMI Rate: regular rate Rhythm: regular rhythm Heart sounds: S1 normal heart sound present, S2 normal heart sound present, no click, no gallops, no murmurs and no rubs GI Auscultation: normal bowel sounds Skin General skin exam: no rashes or lesions noted Neuro General: patient oriented x3 and no focal motor deficits Speech: No Abnormal speech present Extrem General: Yes no clubbing, cyanosis or edema Psych Appearance: grossly normal Assessment & Plan Assessment & Plan (1) HTN (hypertension): Code(s): I10 - Essential (primary) hypertension Category: Medical Plan: Hypertension which is uncontrolled. She is off verapamil as she was having side effects to it. Discussed importance of good blood pressure control. Advised also to monitor blood pressure intermittently at home. Low-salt diet was discussed. Stress mitigation strategies was discussed. Continue losartan hydrochlorothiazide combination therapy. Will add labetalol 100 mg b.i.d. to her regimen. Noted that she had side effects to Coreg but no real allergic reaction. Will monitor blood pressure at home. Advised to call my office in 2 weeks time. This should also help with a palpitation syndrome. Continue participate in physical activity as tolerated. Her chest pain syndrome could be related to uncontrolled blood pressure response to exercise. (2) SVT (supraventricular tachycardia): Code(s): I47.10 - Supraventricular tachycardia, unspecified Category: Medical Plan: Patient with short burst of SVT without any obvious symptoms while being monitored on Holter monitor. Benign nature of short burst of SVT was noted. Avoidance of stimulants was discussed. Continue labetalol therapy. Advised to call me with prolonged symptoms. Follow up in the clinic in 1 year's time, sooner p.r.n.. Thank you allowing me to partake in the care Medications: New labetalol 100 mg PO BID 60 tabs 2RF
== END 2023-10-15 15:45 | disposition home or self-care (01) ==
PROVIDERS: PCP Internal Medicine; Visit Provider Internal Medicine Cardiovascular Disease
DX: I10 Essential (primary) hypertension (principal); I47.10 Supraventricular tachycardia, unspecified
CPT/HCPCS: 99214

== ENCOUNTER 2023-10-18 14:38 | Outpatient (AMB) | payer OTHER, SELFPAY ==
[2023-10-18 14:52] VITALS: BP 110/80; BMI 32.1
--- NOTE | 2023-10-18 14:52 | A.OFFVIS_ITS ---
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 The following workup was done.: H&H= 10.9/34.4 TSH, prolactin, hCG, GC and chlamydia were negative. FSH/LH = 1.7/1.7 Endometrial biopsy pathology showed weakly proliferative endometrium with no evidence of hyperplasia and/or malignancy. Co testing was done was negative. Mammogram was BI-RADS 1. Pelvic ultrasound showed the following: The uterus measures 12.0 x 5.9 x 7.2 cm, volume 264 mL. Visualization is limited due to uterine heterogeneity and multiple fibroids. Largest fibroids as follows: Right 2.9 x 2.8 x 3.4 cm, previously 2.9 x 3.3 x 3.0 cm 2.5 x 2.6 x 3.1 cm, previously 2.7 x 2.3 x 2.1 cm 1.4 x 1.3 x 1.9 cm fibroid not previously imaged. 1.5 x 1.5 x 1.7 cm probable fibroid not previously imaged. 1.3 x 1.2 x 1.7 cm lower uterine segment fibroid, previously 1.3 x 1.2 x 1.7 cm. Endometrial thickness is 13 mm. Nabothian cysts. Right ovary measures 2.5 x 1.4 x 1.3 cm, volume 2.2 mL. Left ovary measures 1.8 x 1.8 x 1.3 cm, volume 2.3 mL. Bilateral ovaries are grossly unremarkable on limited images, and were better visualized on transabdominal ultrasound images. No significant free fluid. [facility] Medical History HTN (hypertension) Surgical History Hx of lumpectomy Family History Father CAD (coronary artery disease) CHF (congestive heart failure) Mother CAD (coronary artery disease) CHF (congestive heart failure) Social History Alcohol intake: never Patient Tobacco Use Status: Never used Tobacco Review of Systems Const All systems reviewed & are unremarkable except as noted in HPI and below Reports as per HPI and Reports no additional complaints GI Reports no additional complaints Reports no additional complaints Physical Exam Vital Signs: Last Vital Signs BP 110/80 10/18/23 14:52 BMI result Body Mass Index 32.1 Assessment & Plan Assessment & Plan (1) Abnormal uterine bleeding: Code(s): N93.9 - Abnormal uterine and vaginal bleeding, unspecified Category: Medical Plan: Discussed with the patient the results of the work up done and options of treatment including Lysteda, control pills, Mirena IUD, endometrial ablation and hysterectomy. All pros, cons, risks and benefits if each option was discussed with the patient and the patient decided to go ahead with Mirena IUD so a more detailed discussion about it was conducted including mechanism of action, risks (uterine perforation, infection, injury to bladder, bowel, displacement, and others) benefits (hypo menorrhea, amenorrhea, ...). GC/CT were taken and the patient was instructed to schedule Mirena IUD insertion on day 1-5 of next cycle . All questions answered, the patient verbalized understanding (2) Uterine myoma: Code(s): D25.9 - Leiomyoma of uterus, unspecified Category: Medical Plan: Discussed with the patient the findings on pelvic ultrasound & the risk of myosarcoma; discussed with the patient the options of treatment including expectant management versus hysterectomy; the pros and cons, risks benefits of each approach were discussed with the patient including the fact that in cases of myosarcoma, surgical treatment can lead to early diagnosis and positively affects the prognosis; after further discussion, the patient decided to proceed with expectant management. Will repeat pelvic ultrasound periodically. Instructions given to patient to call in case any of the following occurs: pressure symptoms, abnormal uterine bleeding, pelvic pain; and to schedule a future office follow-up appointment for reassessment and to order a repeat ultrasound . All questions answered, the patient verbalized understanding and agreed with the plan . Coding Level of Care Code Est Pt Level 3 (41234) Diagnoses Abnormal uterine bleeding N93.9 Uterine myoma D25.9
== END 2023-10-18 15:19 | disposition home or self-care (01) ==
PROVIDERS: PCP Internal Medicine; Visit Provider Obstetrics & Gynecology
DX: N93.9 Abnormal uterine and vaginal bleeding, unspecified (principal); D25.9 Leiomyoma of uterus, unspecified
CPT/HCPCS: 99213

== ENCOUNTER → 2023-10-18 14:38 | Outpatient (BNVA) | payer OTHER, SELFPAY | PROVIDERS: PCP Internal Medicine; Visit Provider Obstetrics & Gynecology | DX: N93.9 Abnormal uterine and vaginal bleeding, unspecified (principal) | CPT/HCPCS: 99212 ==

== ENCOUNTER 2023-11-21 16:07 | Outpatient (REF) | payer OTHER, SELFPAY ==
[2023-11-21 18:50] LABS: Cholesterol 171 mg/dL (<200); HDL Cholesterol 50 mg/dL (>40); LDL Cholesterol Calculated 82 mg/dL (<100); Triglycerides 198 mg/dL (<150)
== END 2023-11-21 16:08 | disposition home or self-care (01) ==
LOC: HO.HHCL 16:07
PROVIDERS: Visit Provider Internal Medicine
DX: I10 Essential (primary) hypertension (principal)
CPT/HCPCS: 36415; 80061

== ENCOUNTER 2024-03-12 15:16 | Outpatient (AMB) | payer OTHER, SELFPAY ==
[2024-03-12 15:19] VITALS: BP 122/80; BMI 32.1
--- NOTE | 2024-03-12 15:19 | MHC.OFFVIS ---
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 Interpreted: non-clinical & clinical Patient Care Nursing Assistant: Patient Care Nursing Assistant Present (Enllie Napoleon MERINO) Accompanied by: Self / Same As Patient Allergies carvedilol Allergy (Mild, Verified 03/12/24 15:30) Dizziness Bleach (Sodium Hypochlorite) [BLEACH (SODIUM HYPOCHLORITE)] Allergy (Unknown, Verified 03/12/24 15:30) RASH verapamil Adverse Reaction (Mild, Verified 03/12/24 15:30) Palpitations Is last menstrual period known: Yes Last menstrual period: 03/07/24 HPI Comments Details: Presenting for Mirena IUD insertion PFSH Medical History HTN (hypertension) Surgical History Hx of lumpectomy Family History Father CAD (coronary artery disease) CHF (congestive heart failure) Mother CAD (coronary artery disease) CHF (congestive heart failure) Social History Alcohol intake: never Patient Tobacco Use Status: Never used Tobacco Female Reproductive History Menstrual Date of last menstrual period: 03/07/24 control method: progestin IUCD Office Procedures IUD Insert/Removal Details Details: The patient is presenting for Mirena IUD insertion Urine test was done in the office and was negative; All the contraindications were excluded. The following possible complications were discussed with the patient: Intrauterine , Ectopic , Sepsis, Pelvic Infection, Irregular Bleeding and Amenorrhea, Perforation, Expulsion, Ovarian Cysts, Breast Cancer, The following adverse effects were discussed with the patient: alteration of menstrual bleeding pattern, including: unscheduled uterine bleeding decreased uterine bleeding increased scheduled uterine bleeding female genital tract bleeding ,amenorrhea , genital discharge , vulvovaginitis , breast pain , benign ovarian cyst and associated complications , dysmenorrhea , Gastrointestinal disorders abdominal/pelvic pain, headache/migraine , back pain , acne , depression Alternative options were discussed with the patient including but not limited: control pills, patch, NuvaRing, Depo-medroxyprogesterone acetate, Nexplanon, copper IUD, sterilization, vasectomy, others The procedure was explained in detail to patient , at the end patient signed the informed consent obtained. A no touch technique was used throughout the procedure. A speculum was placed into vagina and cervix was cleaned with betadine). A tenaculum was placed. A plastic sound was advanced through the external and internal os until it reached the fundus of the uterus, the depth was 8 cm. The sound was then withdrawn. The IUD was loaded in a sterile manner and advanced into position. The string was visualized and cut to 3 cm. Tenaculum site hemostatic. All instruments removed from vagina. Patient tolerated the procedure well. NO complications were noted. Patient was instructed to call for fever over 100.4, significant pain unrelieved by Motrin, IUD expulsion, heavy bleeding, or abnormal discharge. In addition, the following clinical considerations were discussed with the patient to call for removal: A stroke or heart attack ,Very severe or migraine headaches ,Unexplained fever ,Yellowing of the skin or whites of the eyes, as these may be signs of serious liver problems , or suspected , Pelvic pain or pain during sex ,HIV positive seroconversion in herself or her partner , Possible exposure to sexually transmitted infections Unusual vaginal discharge or genital sores , severe vaginal bleeding or bleeding that lasts a long time, or if she misses a menstrual period, Inability to feel Mirena's threads Counseled the patient that the IUD does not protect against STI's, recommended use of condoms for the first 7 days post insertion and explained to the patient that condoms are recommended for patients at risk for sexually transmitted infections. Informed the patient that Mirena IUD is FDA approved for 8 years for contraception for 5 years for the treatment of heavy menses Instructed the patient to schedule a Follow up appointment in 4 to 6 weeks following insertion. This note was generated with a voice recognition program. Some errors may have been overlooked during the review of this note. Sometimes these errors may affect the content or meaning of a given sentence. 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 ea Assessment & Plan Assessment & Plan (1) Encounter for insertion of Mirena IUD: Code(s): Z30.430 - Encounter for insertion of intrauterine contraceptive device Category: Medical Plan: Mirena IUD inserted, see procedure note Orders: Orders AMB IUD Insertion/Removal - Practice Supplied Today Z30.430 - Encounter for insertion of intrauterine contraceptive device Medications: New Mirena (levonorgestrel) 1 device intrauterine ONCE 1 ea 0RF Mirena IUD insertion NS Z30.430 - Encounter for insertion of intrauterine contraceptive device Coding Level of Care Code Procedure Only Diagnoses Encounter for insertion of Mirena IUD Z30.430 CPT Codes Details - CPT: 19635-ZUB Insertion ([id number])
== END 2024-03-12 15:56 | disposition home or self-care (01) ==
LOC: HO.HWS 15:16
PROVIDERS: PCP Internal Medicine; Visit Provider Obstetrics & Gynecology
DX: Z32.02 Encounter for pregnancy test, result negative (principal); Z30.430 Encounter for insertion of intrauterine contraceptive device
CPT/HCPCS: 58300

== ENCOUNTER → 2024-03-12 15:16 | Outpatient (BNVA) | payer OTHER, SELFPAY | PROVIDERS: PCP Internal Medicine; Visit Provider Obstetrics & Gynecology | DX: Z30.430 Encounter for insertion of intrauterine contraceptive device (principal); Z32.02 Encounter for pregnancy test, result negative | CPT/HCPCS: 58300; 81025; J7298 ==

== ENCOUNTER 2024-03-17 16:14 | Outpatient (REF) | payer OTHER, SELFPAY ==
[2024-03-17 18:16] LABS: MANUAL DIFF FLAG NO
[2024-03-17 18:30] LABS: Basophils Absolute Auto 0.1 X10*3/uL (0.0-0.2); Basophils Percent Auto 0.7 % (0-2); Eosinophils Absolute Auto 0.6 X10*3/uL (0.0-0.4); Eosinophils Percent Auto 5.1 % (0-4); Hematocrit 32.4 % (37.0-47.0); Hemoglobin 10.3 g/dl (12.0-16.0); Imm Gran Abs Auto 0.05 X10*3/uL (0.00-0.03); Imm Gran Pct Auto 0.4 % (0.0-0.4); Lymphocytes Absolute Auto 3.9 X10*3/uL (1.2-4.9); Lymphocytes Percent Auto 33.3 % (20-40); Mean Corpuscular HGB Conc 31.8 g/dl (31.0-35.0); Mean Corpuscular Hemoglobin 20.4 pg (27.0-33.0); Mean Platelet Volume 9.5 fL (9.4-12.3); Monocytes Absolute Auto 0.6 X10*3/uL (0.1-1.2); Monocytes Percent Auto 4.8 % (2-11); Neutrophils Absolute Auto 6.5 x10*3/uL (2.0-8.3); Neutrophils Percent Auto 55.7 % (45-73); Platelet Count 470 X10*3/uL (160-400); Red Blood Count 5.06 X10*6/uL (4.20-5.50); Red Cell Distribution Width 16.4 % (11.0-16.0); White Blood Count 11.7 X10*3/uL (4.8-10.8)
== END 2024-03-17 16:15 | disposition home or self-care (01) ==
LOC: HO.HHCL 16:14
PROVIDERS: Visit Provider Internal Medicine
DX: D57.3 Sickle-cell trait (principal); D50.0 Iron deficiency anemia secondary to blood loss (chronic)
CPT/HCPCS: 36415; 85025

== ENCOUNTER 2024-06-19 09:21 | Outpatient (AMB) | payer OTHER, SELFPAY ==
--- NOTE | 2024-06-19 09:23 | HO.NEPHOV ---
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 Allergies carvedilol Allergy (Mild, Verified 06/19/24 09:26) Dizziness Bleach (Sodium Hypochlorite) [BLEACH (SODIUM HYPOCHLORITE)] Allergy (Unknown, Verified 06/19/24 09:26) RASH verapamil Adverse Reaction (Mild, Verified 06/19/24 09:26) Palpitations Medication List - Last Reconciled 06/19/24 by Zan Martinez MD famotidine 20 mg PO BID ferrous gluconate 324 mg PO TID labetalol 50 mg (1/2 x 100 mg) PO BID 90 days losartan-hydrochlorothiazide 100-25 mg 1 tab PO QAM meclizine 25 mg PO TID PRN norethindrone (contraceptive) 0.35 mg PO DAILY verapamil ER 240 mg PO DAILY Do you need a note to return to daycare/school/sports/work: No HPI Comments Details: [age] year Year old pleasant woman with a history of hypertension. Currently she is on losartan hydrochlorothiazide along with labetalol twice a day and verapamil. Blood pressure has been fluctuating and she has been referred for further evaluation. In the past she has had normal renal function. She has no other significant medical history. She says she has been snoring at night. Sometimes she wakes up at night. She has not had a sleep study. Overall weight has been stable her BMI is elevated at 32.9. [facility] Medical History Anxiety with depression Acute maxillary sinusitis Sickle cell trait Iron deficiency anemia due to chronic blood loss Other chest pain Pelvic pain Dizziness Amenorrhea Dyspareunia in female Hypersomnia HTN (hypertension) Surgical History Hx of lumpectomy Family History Father CAD (coronary artery disease) CHF (congestive heart failure) Mother CAD (coronary artery disease) CHF (congestive heart failure) Social History Alcohol intake: never Patient Tobacco Use Status: Never used Tobacco Review of Systems Const Denies fever(s) and Denies weight loss Card Denies chest pain Resp Denies cough and Denies hemoptysis GI Denies abdominal pain, Denies diarrhea and Denies nausea Musc Denies back pain Neuro Denies focal weakness Physical Exam Vital Signs: Last Vital Signs Pulse 91 06/19/24 09:24 BP 120/80 06/19/24 09:24 Pulse Ox 98 06/19/24 09:24 Oxygen Delivery Method Room Air 06/19/24 09:24 BMI result Body Mass Index 32.9 Comfortable Neck supple no JVD. Lungs entry equal no rales. Heart S1-S2 heard no gallop or rub. Abdomen soft nontender. Neuro alert awake oriented. No asterixis. Extremities no edema. Results Reviewed Nephrology Results: Hgb 10.3 g/dl (12.0-16.0) L 03/17/24 WBC 11.7 X10*3/uL (4.8-10.8) H 03/17/24 Plt Count 470 X10*3/uL (160-400) H 03/17/24 Assessment & Plan Assessment & Plan (1) HTN (hypertension): Code(s): I10 - Essential (primary) hypertension Category: Medical Plan Pleasant 48-year-old woman with a history of hypertension. Currently blood pressure is well controlled. Due to the history of snoring I will also refer her for sleep evaluation and I suspect she has underlying obstructive sleep apnea. At home blood pressure has been fluctuating. I will arrange for a 24 hour ambulatory blood pressure monitoring. In the meantime encouraged her to stay on low-sodium diet. She will benefit from weight loss. Orders: Orders Creatinine Urine Today I10 - Essential (primary) hypertension AMB 24 HR B/P Monitor PLACEMENT Today I10 - Essential (primary) hypertension Basic Metabolic Panel Today I10 - Essential (primary) hypertension Total Protein Urine Random Today I10 - Essential (primary) hypertension UA and rflx microscopic Today I10 - Essential (primary) hypertension Referrals Sleep Medicine Referral I10 - Essential (primary) hypertension Coding Level of Care Code New Pt Level 4 (05155) Diagnoses HTN (hypertension) I10
[2024-06-19 09:24] VITALS: BP 120/80; PULSE 91; O2SAT 98; BMI 32.9
--- OUTSIDE RECORDS SUMMARY | 2024-06-19 09:25 | XMS_ITS | Data Portability ---
Author Organization PALOMO ZAVALA MD [facility], Main Office Address [address] [place] [address] Assessment No assessment recorded. Plan of Treatment Reminders Order Date Submit Date Provider Last Modified By Organization Details Last Modified Time Details Appointments OTHER 2024 03:20P Tatianna Ureña MD Not available Not available Not available Lab ALT (alanine aminotran sferase), serum or plasma 2023 024 Not available 04/24/2024 09:00:41 AST/SGOT (aspartat e aminotran sferase), serum or plasma 2023 024 Not available 04/24/2024 09:00:41 creatinin e w/ estimated GFR (eGFR), serum or plasma 2023 024 Not available 04/24/2024 09:00:41 hepatitis C virus Ab, serum 2023 024 Not available 04/24/2024 09:00:41 tb (M tuberculo sis), ifn-gamma eb, blood 2023 024 Not available 04/24/2024 09:00:41 RPR (rapid plasma reagin), quantitat harry, serum 2023 024 Not available 04/24/2024 09:00:42 HBsAg (hepatiti s B surface Ag), serum 2023 024 Not available 04/24/2024 09:00:42 amylase + lipase, serum [address], [address] [facility], [place], [address], 04/24/2024 09:00:42 HbA1c (hemoglob in A1c), blood [address], [address] [place], [address], 04/24/2024 09:00:42 TSH + free T4, serum [address], [address] [place], [address], 04/24/2024 09:00:42 Referral None recorded. Procedures None recorded. Surgeries None recorded. Imaging None recorded. Medication Orders None recorded. Patient TargetsNo targets recorded. Patient InstructionsNo instructions recorded. Reason for Referral None Reported. Results Created Date Observation Date Name Description Value Unit Range Abnormal Flag Note LastModifiedBy Organization Detail LastModifiedTime 04/17/2004/18/2024 TSH+F REE T4 TSH 2.690 uIU/m L 0.450- 4.500 normal Not Available [facility] ([facility]) [address] [place], [address], 04/30/2024 08:09:15 04/17/2004/18/2024 TSH+F REE T4 T4,free(dire ct) 1.32 NG/dL 0.82-1 .77 normal Not Available [facility] ([facility]) [address] [place], [address], 04/30/2024 08:09:15 04/17/2004/19/2024 QUANT IFERO N-TB GOLD PLUS quantiferon incubation Incuba tion perfor med. Not Available [facility] ([facility]) [address] [place], [address], 04/30/2024 08:09:15 04/17/2004/19/2024 QUANT IFERO N-TB GOLD PLUS quantiferon criteria Commen t Quant iFERO N-TB Gold Plus is a quali tativ e indir ect test for M tuber culos is infec tion (incl uding disea se) and is inten ded for use in conju nctio n with risk asses sment , radio graph y, and other medic al and diagn ostic evalu ation s. The Quant iFERO N-TB Gold Plus resul t is deter mined by subtr actin g the Nil value from eithe r TB antig en (Ag) value . The Mitog en tube serve s as a contr ol for the test. Not Available [facility] ([facility]) [address] [place], [address], 04/30/2024 08:09:15 04/17/2004/20/2024 QUANT IFERO N-TB GOLD PLUS quantiferon TB1 Ag value 9.79 IU/mL Not Available [facility] ([facility]) [address] [place], [address], 04/30/2024 08:09:15 04/17/2004/20/2024 QUANT IFERO N-TB GOLD PLUS quantiferon TB2 Ag value 8.97 IU/mL Not Available [facility] ([facility]) [address] [place], [address], 04/30/2024 08:09:15 04/17/2004/20/2024 QUANT IFERO N-TB GOLD PLUS quantiferon nil value 0.11 IU/mL Not Available [facility] ([facility]) [address] [place], [address], 04/30/2024 08:09:15 04/17/2004/20/2024 QUANT IFERO N-TB GOLD PLUS quantiferon mitogen value >10.00 IU/mL Not Available [facility] ([facility]) [address] [place], [address], 04/30/2024 08:09:15 04/17/2004/20/2024 QUANT IFERO N-TB GOLD PLUS quantiferon- TB gold plus Positi ve negati ve abnormal A respo nse to M tuber culos is antig ens has been detec marga. If patie nt is at low risk for Tuber culos is, the resul t shoul d be inter prete d with cauti on and repea t testi ng on a new speci men is recom dhiraj d (ATS/ IDSA/ CDC Clini usman Pract ice Guide lines , 2017) . False posit sugey can also occur due to infec tion by Tatianna ford, Tatianna houser, or Tatianna singh. Chemi lumin escen ce immun oassa y metho dolog y Not Available [facility] ([facility]) [address] [facility], [place], [address], 04/30/2024 08:09:15 04/17/20 24 04/18/2024 HEMOG LOBIN A1C hemoglobin A1C 5.2 % 4.8-5. 6 normal Predi abete s: 5.7 - 6.4 Diabe pili: >6.4 Glyce arley contr ol for adult s with diabe pili: <7.0 Not Available [facility] ([facility]) [address] [facility], [place], [address], 04/30/2024 08:09:16 04/17/20 24 04/18/2024 HCV ANTIB BRIDGETTE hep C virus Ab Non Reacti ve non reacti ve HCV antib bridgette alone does not diffe renti ate betwe en previ ously resol sterling infec tion and activ e infec tion. Equiv ocal and React harry HCV antib bridgette resul ts shoul d be follo wed up with an HCV RNA test to suppo rt the diagn osis of activ e HCV infec tion. Not Available [facility] ([facility]) [address] [facility], [place], [address], 04/30/2024 08:09:16 04/17/20 24 04/18/2024 AST (SGOT ) AST (SGOT) 29 IU/L 0-40 normal Not Available [facility] ([facility]) [address] [facility] [place], [address], 04/30/2024 08:09:17 04/17/2004/18/2024 ALT (SGPT ) ALT (SGPT) 30 IU/L 0-32 normal Not Available [facility] ([facility]) [address] [facility] [place], [address], 04/30/2024 08:09:17 04/17/2004/18/2024 RPR RPR Non Reacti ve non reacti ve Not Available [facility] ([facility]) [address] [facility] [place], [address], 04/30/2024 08:09:18 04/17/2004/18/2024 AMYLA SE amylase 99 U/L 31-110 normal Not Available [facility] ([facility]) [address] [facility] [place], [address], 04/30/2024 08:09:18 04/17/2004/18/2024 LIPAS E lipase 42 U/L 14-72 normal Not Available [facility] ([facility]) [address] [facility] [place], [address], 04/30/2024 08:09:19 04/17/2004/30/2024 CREAT INE, SERUM creatine, serum TNP mg/dL [facility] was unabl e to colle ct suffi cient speci men to perfo rm the follo wing test( s), and is provi ding the patie nt with re-co llect ion instr uctio ns. This test was devel oped and its perfo rmanc e daniel cteri stics deter mined by [facility]. It has not been clear ed or appro sterling by the Food and Drug Admin istra tion. Not Available [facility] ([facility]) [address] [facility] [place], [address], 04/30/2024 08:09:19 04/17/2004/18/2024 HBSAG SCREE N HBsAg screen Negati ve negati ve Not Available [facility] ([facility]) [address] [facility], [place], [address], 04/30/2024 08:09:20 04/17/2004/30/[address] PROBL EM request problem TNP [facility] was unabl e to colle ct suffi cient speci men to perfo rm the follo wing test( s), and is provi ding the patie nt with re-co llect ion instr uctio ns. TEST: [id number] 2 Creat ine, Serum Not Available [facility] ([facility]) [address] [facility], [place], [address], 04/30/2024 08:09:20 05/19/2005/20/2024 CREAT ININE creatinine 0.70 mg/dL 0.57-1 .00 normal Not Available [facility] ([facility]) [address] [facility], [place], [address], 05/20/2024 06:05:17 05/19/2005/20/2024 CREAT ININE eGFR 105 mL/mi n/1.7 3 >59 normal Not Available [facility] ([facility]) [address] [facility], [place], [address], 05/20/2024 06:05:17 04/04/20 24 04/02/2024 XR, chest , 2 view No observ ation record ed. [email or web address] Not Available 04/09 13:17:06 Result Notes None recorded. Procedures Surgical History None recorded. Imaging Results Imaging Date Name Status LastModified by Organ ation Details LastModified Time 04/02/2024 XR, chest, 2 view completed [email or web address] Information not available 04/09/2024 13:17:06 Procedure Notes None recorded. Medical Equipment None Reported. Allergies No known drug allergies Medications Name Sig Start Date Stop Date Status Note LastModified by Organization Details LastModified Time amoxicillin 500 mg capsule TAKE 1000 MG (2 X 500 MG) BY MOUTH DAILY FOR 10 DAYS active Not Available Not Available No t Available losartan 100 mg-hydrochlor othiazide 25 mg tablet TAKE 1 TABLET BY MOUTH EVERY DAY IN THE MORNING active Not Available Not Available No t Available rifampin 300 mg capsule TAKE 2 CAPSULES BY MOUTH DAILY FOR 30 DAYS, FOR LTBI. active Not Available Not Available No t Available meclizine 25 mg tablet TAKE 1 TABLET (25 MG) BY MOUTH NEEDED 3 TIMES A DAY (MORNING, NOON AND AT BEDTIME) FOR DIZZINESS active Not Available Not Available No t Available verapamil ER (SR) 240 mg tablet,extend ed release TAKE 1 TABLET (240 MG) BY MOUTH ONCE PER DAY. DO NOT CRUSH OR CHEW. active Not Available Not Available No t Available labetalol 100 mg tablet TAKE 1/2 TABLET ORALLY 2 TIMES A DAY FOR 90 DAYS active Not Available Not Available No t Available loratadine 10 mg tablet TAKE 1 TABLET BY MOUTH EVERY DAY active Not Available Not Available No t Available verapamil ER 240 mg 24 hr capsule,exten ded release TAKE 1 CAPSULE (240 MG) BY MOUTH AT BEDTIME. DO NOT CRUSH OR CHEW. active Not Available Not Available No t Available amoxicillin 875 mg-potassium clavulanate 125 mg tablet TAKE 1 TABLET BY MOUTH TWICE A DAY FOR 7 DAYS active Not Available Not Available No t Available ferrous gluconate 324 mg (38 mg iron) tablet TAKE 1 TABLET (324 MG) BY MOUTH WITH BREAKFAST, WITH LUNCH, AND WITH EVENING MEAL. active Not Available Not Available No t Available Vitals Date Recorded Body height Heart rate Respiratory rate Body temperature Body mass index (BMI) Body weight Oxygen saturation Oxygen saturation in Arterial blood by Pulse oximetry Systolic blood pressure Diastolic blood pressure Provider Name and Address Organization Details Last Updated DateTime 4 154.94 cm 98 /min 14 /min 98.36 [degF] 33.1 kg/m2 42886.6 6 g 100 % 100 % 114 mm[Hg] 88 mm[Hg] Mercedes UREÑA MD [facility] 4 15:41:31 Social History None recorded. Functional Status None recorded. Mental Status None recorded. Family History Nothing Reported. Medical History No medical history recorded. Gynecological HistoryNo gynecological history recorded. Obstetrics History GPAL:G 0 P 0 0 0 0 Past Encounters Encounter ID Performer Location Encounter Start Date Encounter Closed Date Diagnosis/Indication Diagnosis SNOMED-CT Code Diagnosis ICD10 Code [id number] Maryam Ureña MD Main Office [address] [place] [address] 04/17/2024 15:20:33 04/17/2024 16:10:05 Nonspecific tuberculin test reaction 692599491 R76.12 Body mass index 30+ - obesity 421456388 Z68.30 Health Concerns Section Related Observation LastModified by Organization Detai ls LastModified Time None Recorded Concern Status LastModified by Organization Details LastModified Time None Recorded Advance Directives Directive None Recorded Payers Encounter Date Sequence Insurance Name Policy Number Policy Minor Covered Member ID Minor Member ID Guarantor Name 04/17/2024 1 [facility] [employer] - TOGETHER (MEDICAID HMO) [id number] Laina Bell [id number] Laina Bell Notes Date Note Type Note Provider Name and Address Organization Details Recorded Time 04/17/20 text/htm l quantiferon positive Chest x ray negno TB sx.no known exposures; 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 no cough. no fever. no weight loss. no chills. 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 particularly abdomnial area.has tried to lose weight.no pancreatitis hxno thyroid nor medullary cancer hx.no GI obstructionconstipationno hxno gallstone nor kidney stonefibroids hx on IUDdenies HIVreports HBV immuneno med allergies02/2024 high tryglicerides 198; chol 171 TSH nl 2023no drink for ETOHno smoking Maryam Ureña MD [address] [place] [address], [place], [address], [place] - MARYAM UREÑA MD [facility] 04/17/2024 22:21:33 OBGyn Episode No OBEpisode recorded.
--- OUTSIDE RECORDS SUMMARY | 2024-06-19 09:25 | XMS_ITS | Continuity of Care Document ---
Author Organization PALOMO ZAVALA MD [facility], Main Office Address [address] [place] [address] Assessment No assessment recorded. Plan of Treatment [...] 09:00:42 amylase + lipase, serum [address], [address] [place], [address], 04/24/2024 09:00:42 HbA1c (hemoglob in A1c), blood [address], [address] [place], [address], 04/24/2024 09:00:42 TSH + free T4, serum [address], [address] [place], [address], 04/24/2024 09:00:42 Referral None recorded. Procedures None recorded. Surgeries None recorded. Imaging None recorded. Medication Orders None recorded. Patient TargetsNo targets recorded. Patient InstructionsNo instructions recorded. Reason for Referral None Reported. Results Created Date Observation Date Name Description Value Unit Range Abnormal Flag Note LastModifiedBy Organization Detail LastModifiedTime 04/04/2004/02/2024 XR, chest , 2 view No observ ation record ed. [email or web address] Not Available 04/09 13:17:06 Result Notes None recorded. Medical Equipment None Reported. [...] /min 14 /min 98.36 [degF] 33.1 kg/m2 11192.6 6 g 100 % 100 % 114 mm[Hg] 88 mm[Hg] Mercedes Berry [place] - MARYAM UREAÑ MD [facility] 4 15:41:31 Social History None recorded. Functional Status None recorded. Mental Status None recorded. Family History Nothing Reported. Medical History No medical history recorded. Gynecological HistoryNo gynecological history recorded. Obstetrics History GPAL:G 0 P 0 0 0 0 Past Encounters Encounter ID Performer Location Encounter Start Date Encounter Closed Date Diagnosis/Indication Diagnosis SNOMED-CT Code Diagnosis ICD10 Code [id number] Maryam Ureña MD Main Office [address] [place] [address] 04/17/2024 15:20:33 04/17/2024 16:10:05 Nonspecific tuberculin test reaction 504198849 R76.12 Body mass index 30+ - obesity 593343863 Z68.30 Health Concerns Section Related Observation LastModified by Organization Detai ls LastModified Time None Recorded Concern Status LastModified by Organization Details LastModified Time None Recorded Payers Encounter Date Sequence Insurance Name Policy Number Policy Minor Covered Member ID Minor Member ID Guarantor Name 04/17/2024 1 [facility] [employer] - TOGETHER (MEDICAID HMO) [id number] Laina Bell [id number] Laina Bell Notes Date Note Type Note Provider Name and Address Organization Details Recorded Time 04/17/20 24 text/htm l quantiferon positive Chest x ray [...] has had elevated glucoseno steroid use.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 particularly abdomnial area.has tried to lose weight.no pancreatitis hxno thyroid nor medullary cancer hx.no GI obstructionconstipationno hxno gallstone nor kidney stonefibroids hx on IUDdenies HIVreports HBV immuneno med allergies02/2024 high tryglicerides 198; chol 171 TSH nl 2023no drink for ETOHno smoking Maryam Ureña MD [address] [place] [address], [address], [place] - MARYAM UREÑA MD [facility] 04/17/2024 22:21:33 OBGyn Episode No OBEpisode recorded.
== END 2024-06-19 09:42 | disposition home or self-care (01) ==
PROVIDERS: PCP Internal Medicine; Visit Provider Internal Medicine Hypertension Specialist
DX: I10 Essential (primary) hypertension (principal)
CPT/HCPCS: 99204

== ENCOUNTER → 2024-06-19 09:21 | Outpatient (BNVA) | payer OTHER, SELFPAY | PROVIDERS: PCP Internal Medicine; Visit Provider Internal Medicine Hypertension Specialist | DX: I1A.0 Resistant hypertension (principal); Z79.899 Other long term (current) drug therapy | CPT/HCPCS: 99202 ==

== ENCOUNTER 2024-06-19 09:48 | Outpatient (REF) | payer OTHER, SELFPAY ==
[2024-06-19 10:58] LABS: Appearance Urine Clear; Color Urine Yellow; Glucose Urine UA Negative (Negative); Leukocyte Esterase Urine Negative (Negative); Nitrite Urine Negative (Negative); PH 5.5 (5.0-9.0); Specific Gravity - Urine 1.025 (1.005-1.025); UMIC TRIGGER UA YES; Urine Blood Negative (Negative); Urine Ketones Negative (Negative); Urine Protein 30 (1+) mg/dL (Neg-Trace)
[2024-06-19 11:03] LABS: Bacteria Urine None Seen (None Seen); Hyaline Casts Urine 0-2 /LPF (0-2); RBC Urine 0-2 /HPF (0-2); Squamous Epithelial Cell Urine 0-2 /HPF (0-2); WBC Urine 0-5 /HPF (0-5)
[2024-06-19 11:06] LABS: Anion Gap 12 (12-20); Blood Urea Nitrogen 17 mg/dL (9-16); Calcium 9.4 mg/dL (8.4-10.2); Carbon Dioxide 25 mmol/L (22-29); Chloride 105 mmol/L (96-108); Estimated Glomerular Filt Rate > 60; Glucose Random 114 mg/dL (60-115); Potassium 3.4 mmol/L (3.3-5.1); Sodium 139 mmol/L (135-145)
[2024-06-19 12:05] LABS: Creatinine Urine 159.11 mg/dL; Total Protein Urine Random 29 mg/dL (<12)
== END 2024-06-19 09:49 | disposition home or self-care (01) ==
LOC: HO.10HDL 09:48
PROVIDERS: Visit Provider Internal Medicine Hypertension Specialist
DX: I10 Essential (primary) hypertension (principal)
CPT/HCPCS: 36415; 80048; 81001; 82570; 84156

== ENCOUNTER 2024-07-14 13:03 | Outpatient (AMB) | payer OTHER, SELFPAY ==
--- NOTE | 2024-07-14 13:05 | A.OFFVIS_ITS ---
Vital Signs 07/14/24 13:12 Height 5 ft 1 in Weight 174 lb 4 oz BMI 32.9 BP 104/70 Blood Pressure Location Lt brachial Pulse 78 Pulse Source Pulse Oximeter Pulse Oximetry (%) 98 Oxygen Delivery Method Room Air Intake Visit Reasons: 06/23LVM+Let ENP-Restnt HTN/h/o snoring at night Intake Note: Patient presents for a new patient evaluation for snoring. Bacteriologist Medical Required: No Accompanied by: Self / Same As Patient Allergies carvedilol Allergy (Mild, Verified 07/14/24 13:12) Dizziness Bleach (Sodium Hypochlorite) [BLEACH (SODIUM HYPOCHLORITE)] Allergy (Unknown, Verified 07/14/24 13:12) RASH verapamil Adverse Reaction (Mild, Verified 07/14/24 13:12) Palpitations Medication List - Last Reconciled 07/14/24 by Manny Downing PA-C famotidine 20 mg PO BID ferrous gluconate 324 mg PO TID labetalol 50 mg (1/2 x 100 mg) PO BID 90 days losartan-hydrochlorothiazide 100-25 mg 1 tab PO QAM meclizine 25 mg PO TID PRN sumatriptan succinate take 1 tab at onset of headache; if no relief may repeat 1 tab after at least 2 hrs; max = 4 tabs/24 hr PO MDD 200mg verapamil ER 240 mg PO DAILY HPI Comments Details: 48 year old female with WALDEMAR referred to us by PCP for sleep evaluation. She works night two shifts daily. Bedtime is midnight and wakes up at 7am and once for the bathroom, snores loudly at night. Her mood is irritable and has excessive daytime fatigue. 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 RLS: She has bilateral numbness, and tingling, in feet all the way up to the quads. Moving the legs helps her to fall asleep. Denies cramps or spasms. Morning headaches: most days, lasting all day long, sharp pain starts on top of the head, doesn't migrate, takes tylenol as needed and it subsides. [facility] Medical History Anxiety with depression Acute maxillary sinusitis Sickle cell trait Iron deficiency anemia due to chronic blood loss Other chest pain Pelvic pain Dizziness Amenorrhea Dyspareunia in female Hypersomnia HTN (hypertension) Surgical History Hx of lumpectomy Family History Father CAD (coronary artery disease) CHF (congestive heart failure) Mother CAD (coronary artery disease) CHF (congestive heart failure) Social History Alcohol intake: never Patient Tobacco Use Status: Never used Tobacco Review of Systems Const All systems reviewed & are unremarkable except as noted in HPI and below Physical Exam Vital Signs: Last Vital Signs Pulse 78 07/14/24 13:12 BP 104/70 07/14/24 13:12 Pulse Ox 98 07/14/24 13:12 Oxygen Delivery Method Room Air 07/14/24 13:12 BMI result Body Mass Index 32.9 Const General: cooperative, comfortable and no acute distress Nutritional Appearance: average body habitus and obese (BMI is 32) Orientation/consciousness: patient oriented x3 HEENT Face and sinus: Yes normal facial exam and Yes face symmetric Teeth and gingiva: other ([place] score of 4) Eyes Pupils: Equal, round and reactive pupils present Resp Effort & Inspection: normal respiratory effort and able to speak in complete sentences Neuro General: patient oriented x3 and moves all extremities Cranial nerves: Yes CN's II-XII intact bilaterally, Yes Facial sensation intact/muscles of mastication intact, Yes Equal, round and reactive pupils present, Yes Normal accommodation reflex present, Yes Bilaterally intact EOM present, Yes Nystagmus not present, Yes Normal facial strength present, Yes Midline tongue present, Yes Ability to bilaterally rotate head present (Limited ROM to the L) and Yes Ability to bilaterally elevate shoulders present Cognition (Neuro): normal cognition Gait exam (Neuro): Normal gait present Motor exam (neuro): 5/5 motor strength present throughout and Normal motor muscle tone present throughout Deep tendon reflexes (DTR's): Right triceps reflex intensity grade: 2+, Left triceps reflex intensity grade: 2+, Rt Biceps (C5, C6): 2+, Left biceps reflex intensity grade: 2+, Right brachioradialis reflex intensity grade: 2+, Left brachioradialis reflex intensity grade: 2+, Right patellar reflex intensity grade: 2+ and Left patellar reflex intensity grade: 2+ Coordination: [id number] test normal Psych Appearance: grossly normal Speech and movement: Normal speech and movement present Affect: normal affect Attitude: cooperative Thought process: Normal thought process present Insight: Good insight present (Psych) Judgement: Good judgement present (Psych) Results Reviewed Results Reviewed: Labs WALDEMAR with Sickle Cell trait- needs Electrophoresis for DX of SC, Trait. Anemia is being treated with ferrous Sulfate, takes Vit D. and B-complex Assessment & Plan Assessment & Plan (1) Stress headaches: Code(s): F45.41 - Pain disorder exclusively related to psychological factors Category: Medical (2) RLS (restless legs syndrome): Code(s): G25.81 - Restless legs syndrome Category: Medical (3) JÚNIOR (obstructive sleep apnea): Code(s): G47.33 - Obstructive sleep apnea (adult) (pediatric) Category: Medical Plan Excessive Daytime Fatigue :Home Sleep Test Morning Headaches : Sumatriptan 50mg PO at onset of headache, may take one more tablet within 2-4 hours if headache doesn't subside. Not to exceed 200mg daily. May use a migraine cap and warm / cold neck compress. RLS: Gabapentin 300mg daily at bedtime, may be sedating. Patient Education: Sleep hygiene: Cool Dark Environment, no devices in bed, regimented sleep time, no fluids at bedtime, #1 modifiable RF for CV events is good blood pressure control, focus on Dash Diet of Mediterranean Diet. Follow up in 3 months Orders: Orders 2 RT home sleep study Today Manny Downing PA-C G47.19 - Other hypersomnia, G47.33 - Obstructive sleep apnea (adult) (pediatric) Medications: New sumatriptan succinate take 1 tab at onset of headache; if no relief may repeat 1 tab after at least 2 hrs; max = 4 tabs/24 hr PO 14 tabs 0RF headache MDD 200mg Manny Downing PA-C F45.41 - Pain disorder exclusively related to psychological factors, G25.81 - Restless legs syndrome gabapentin 300mg PO at bedtime daily. 300 mg (3 x 100 mg) PO BEDTIME 30 caps 0RF restless legs MDD 300mg Manny Downing PA-C G25.81 - Restless legs syndrome On Hold labetalol Hold Comment: Doctor's Order 50 mg (1/2 x 100 mg) PO BID 90 days 90 tabs 2RF Nelli Thomas MA Coding Level of Care Code Tele New Pt Level 4 (67768) Diagnoses Stress headaches F45.41 RLS (restless legs syndrome) G25.81 JÚNIOR (obstructive sleep apnea) G47.33 Sleep Questionnaire Difficulty falling asleep: Yes Difficulty staying asleep?: Yes Number of arousals: 1-2 Snoring: Yes Witnessed apneas: No Gasping arousals: No Nocturia: No GERD: Yes (tums otc prn) Vivid dreams: No Acting out dreams: No Abnormal behavior in sleep: No Abnormal movements in sleep: No Morning headaches: Yes (tylenol prn 300-500mg otc) Excessive daytime sleepiness: No Daytime naps: No Restless legs: Yes Hallucinations: No Sleep paralysis: No Drop attacks: No Sleep Study: No CPAP: No
[2024-07-14 13:12] VITALS: BP 104/70; PULSE 78; O2SAT 98; BMI 32.9
--- OUTSIDE RECORDS SUMMARY | 2024-07-14 14:21 | XMS_ITS | Continuity of Care Document ---
Author Organization PALOMO ZAVALA MD [facility], Main Office Address [address] [place] [address] Assessment No assessment recorded. Plan of Treatment [...] 09:00:42 amylase + lipase, serum [address], [address] [place], [address], 04/24/2024 09:00:42 HbA1c (hemoglob in A1c), blood [address], [address] [place], [address], 04/24/2024 09:00:42 TSH + free T4, serum [address], [address] [place], [address], 04/24/2024 09:00:42 Referral None recorded. Procedures None recorded. Surgeries None recorded. Imaging None recorded. Medication Orders None recorded. Patient TargetsNo targets recorded. Patient InstructionsNo instructions recorded. Reason for Referral None Reported. Results Created Date Observation Date Name Description Value Unit Range Abnormal Flag Note LastModifiedBy Organization Detail LastModifiedTime 04/04/2004/02/2024 XR, chest , 2 view No observ ation record ed. [email or web address] Not Available 04/09 13:17:06 Result Notes None [...] /min 14 /min 98.36 [degF] 33.1 kg/m2 93754.6 6 g 100 % 100 % 114 mm[Hg] 88 mm[Hg] Mercedes Berry MA - MARYAM UREÑA MD [facility] 4 15:41:31 Social History None recorded. Functional Status None recorded. Mental Status None recorded. Family History Nothing Reported. Medical History No medical history recorded. Gynecological HistoryNo gynecological history recorded. Obstetrics History GPAL:G 0 P 0 0 0 0 Past Encounters Encounter ID Performer Location Encounter Start Date Encounter Closed Date Diagnosis/Indication Diagnosis SNOMED-CT Code Diagnosis ICD10 Code Diagnosis Note [id number] Maryam Ureña MD Main Office [address] [place] [phone] 04/17/2024 15:20:33 04/17/2024 16:10:05 Nonspecific tuberculin test reaction 814721916 R76.12 R/O 03/2024 quantifero n positive. previous ones negative, including Chest x ray unremarkab lesuggest repeating quantifero n;if positive, then tx w Rifampin 600mg po qd x 4 monthspreg aidee contraindi cated during txpotentia l side effects reviewed such as allergic reactions, n/v/d, change in urine/swea t color. liver monitoring avoid ETOHhydrat ionlabs Body mass index 30+ - obesity 555909561 Z68.30 BMI 33.1; HBP/ hyperglyce zabrina/High Trygliceri deslabs.Or angelo Wegovy vs Zepbound will be prescribed once labs are reviewed.p otential side effects reviewedDi et and exercisela bs ordered Health Concerns Section Related Observation LastModified by Organization Detai ls LastModified Time None Recorded Concern Status LastModified by Organization Details LastModified Time None Recorded Payers Encounter Date Sequence Insurance Name Policy Number Policy Minor Covered Member ID Minor Member ID Guarantor Name 04/17/2024 1 [facility] [employer] - TOGETHER (MEDICAID HMO) [id number] Laina Bell [id number] Laina Bell Notes Date Note Type [...] has had elevated glucoseno steroid use.works in [employer].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 particularly abdomnial area.has tried to lose weight.no pancreatitis hxno thyroid nor medullary cancer hx.no GI obstructionconstipationno hxno gallstone nor kidney stonefibroids hx on IUDdenies HIVreports HBV immuneno med allergies02/2024 high tryglicerides 198; chol 171 TSH nl 2023no drink for ETOHno smoking Maryam Ureña MD [address] [place] [address], [place], [phone], [place] - MARYAM UREÑA MD [facility] 04/17/2024 22:21:33 OBGyn Episode No OBEpisode recorded.
== END 2024-07-14 14:49 | disposition home or self-care (01) ==
PROVIDERS: Absent Provider Physician Assistant Medical; PCP Internal Medicine; Visit Provider Physician Assistant Medical
DX: F45.41 Pain disorder exclusively related to psychological factors (principal); G25.81 Restless legs syndrome; G47.33 Obstructive sleep apnea (adult) (pediatric)
CPT/HCPCS: 99204

== ENCOUNTER → 2024-07-14 13:03 | Outpatient (BNVA) | payer OTHER, SELFPAY | PROVIDERS: Absent Provider Physician Assistant Medical; PCP Internal Medicine; Visit Provider Physician Assistant Medical | DX: G47.33 Obstructive sleep apnea (adult) (pediatric) (principal); F45.41 Pain disorder exclusively related to psychological factors; G25.81 Restless legs syndrome; D50.9 Iron deficiency anemia, unspecified | CPT/HCPCS: 99202 ==

== ENCOUNTER → 2024-07-18 14:24 | Outpatient (BNVA) | payer OTHER, SELFPAY | PROVIDERS: PCP Internal Medicine; Visit Provider Internal Medicine Hypertension Specialist | DX: R42 Dizziness and giddiness (principal); R21 Rash and other nonspecific skin eruption | CPT/HCPCS: 93786 ==

== ENCOUNTER 2024-07-21 15:34 | Outpatient (AMB) | payer OTHER, SELFPAY ==
[2024-07-21 15:36] VITALS: BP 126/88; BMI 33.3
--- NOTE | 2024-07-21 15:36 | HO.NEPHOV ---
Vital Signs 07/21/24 15:36 Height 5 ft 1 in Weight 176 lb BMI 33.3 BP 126/88 Blood Pressure Location Lt brachial Position Sitting Intake Visit Reasons: 24H BPM Results/ Conf Consulting Senior Practice Director Required: No Accompanied by: Self / Same As Patient Allergies carvedilol Allergy (Mild, Verified 07/21/24 15:37) Dizziness Bleach (Sodium Hypochlorite) [BLEACH (SODIUM HYPOCHLORITE)] Allergy (Unknown, Verified 07/21/24 15:37) RASH verapamil Adverse Reaction (Mild, Verified 07/21/24 15:37) Palpitations Medication List - Last Reconciled 07/21/24 by Zan Martinez MD famotidine 20 mg PO BID ferrous gluconate 324 mg PO TID gabapentin 300 mg (3 x 100 mg) PO BEDTIME MDD 300mg labetalol 50 mg (1/2 x 100 mg) PO BID 90 days losartan-hydrochlorothiazide 100-25 mg 1 tab PO QAM meclizine 25 mg PO TID PRN sumatriptan succinate take 1 tab at onset of headache; if no relief may repeat 1 tab after at least 2 hrs; max = 4 tabs/24 hr PO MDD 200mg verapamil ER 240 mg PO DAILY HPI Comments Details: [age] year Year old pleasant woman with a history of hypertension. Currently she is on losartan hydrochlorothiazide along with labetalol twice a day and verapamil. Blood pressure has been fluctuating and she has been referred for further evaluation. In the past she has had normal renal function. She has no other significant medical history. She says she has been snoring at night. Sometimes she wakes up at night. She has not had a sleep study. Overall weight has been stable her BMI is elevated at 32.9. [facility] Medical History Anxiety with depression Acute maxillary sinusitis Sickle cell trait Iron deficiency anemia due to chronic blood loss Other chest pain Pelvic pain Dizziness Amenorrhea Dyspareunia in female Hypersomnia HTN (hypertension) Surgical History Hx of lumpectomy Family History Father CAD (coronary artery disease) CHF (congestive heart failure) Mother CAD (coronary artery disease) CHF (congestive heart failure) Social History Alcohol intake: never Patient Tobacco Use Status: Never used Tobacco Physical Exam Vital Signs: Last Vital Signs BP 126/88 07/21/24 15:36 BMI result Body Mass Index 33.3 Office Procedures 24 B/P Monitor Interpretation CPT: 71953 24 Hour Blood Pressure Monitor Reading Procedure code (CPT) selection complete Results Reviewed Nephrology Results: Hgb 10.3 g/dl (12.0-16.0) L 03/17/24 WBC 11.7 X10*3/uL (4.8-10.8) H 03/17/24 Plt Count 470 X10*3/uL (160-400) H 03/17/24 Sodium 139 mmol/L (135-145) 06/19/24 Potassium 3.4 mmol/L (3.3-5.1) 06/19/24 Chloride 105 mmol/L (96-108) 06/19/24 Carbon Dioxide 25 mmol/L (22-29) 06/19/24 BUN 17 mg/dL (9-16) H 06/19/24 Creatinine 0.80 mg/dL (0.5-1.4) 06/19/24 Calcium 9.4 mg/dL (8.4-10.2) 06/19/24 Urine Protein 30 (1+) mg/dL (Neg-Trace) H 06/19/24 Urine Creatinine 159.11 mg/dL 06/19/24 Assessment & Plan Assessment & Plan (1) HTN (hypertension): Code(s): I10 - Essential (primary) hypertension Category: Medical Plan Pleasant 48-year-old woman with a history of hypertension. Currently blood pressure is well controlled. Due to the history of snoring, referred her for sleep evaluation and I suspect she has underlying obstructive sleep apnea. At home blood pressure has been fluctuating. 24 hour ambulatory blood pressure monitoring shows well controlled HTN. In the meantime encouraged her to stay on low-sodium diet. She will benefit from weight loss. Orders: Orders AMB 24 HR B/P Monitor INTERPRETATION Today I10 - Essential (primary) hypertension Medications: Discontinued labetalol Discontinued Reason: Doctor's Order 50 mg (1/2 x 100 mg) PO BID 90 days 90 tabs 2RF Coding Level of Care Code Est Pt Level 4 (64764) Diagnoses HTN (hypertension) I10 CPT Codes - CPT: 42371 24 Hour Blood Pressure Monitor Reading ([id number])
--- OUTSIDE RECORDS SUMMARY | 2024-07-21 19:34 | XMS_ITS | Encounter Summary ---
Author Organization [employer] Address [address] [place] [address] [address] [place] [address] Care Team Providers Care Rural Health Consultant Name Role Phone Raissa Veras MD Primary Care Provide r Reason for Visit * Reason Comments Med Change Request Encounter Details Date Type Department Care Team ([facility] st Contact Info) Description 05/10/2024 Refill [facility] [address] [place], [place] [id number] Raissa Veras MD [address] [place] [address] Acute maxillary sinusitis, recurrence not specified Social History Tobacco Use Types Packs/Day Years Used Date Smoking Tobacco: Never Passive Smoke Exposure: Never Smokeless Tobacco: Never Alcohol Use Standard Drinks/Week Comments Yes 0 (1 standard drink = 0.6 oz pur e alcohol) oca Alcohol Answer Date Recorded Frequency of Alcohol Consumption Not on file 02/21/2024 Average Number of Drinks Not on file 024 Frequency of Binge Drinking Not on file 01/24 Score 0 02/21/2024 Depression Answer Date Recorded Patient Health Questionnaire-9 Score 16 03/05/2024 Patient Health Questionnaire-9 Score 16 03/05/2024 Last PHQ-9: Questionnaire Data Not on file 0 03/05/2024 Housing Stability Answer Date Recorded What is your housing situation today? I have dom hayward 02/01/[address] you li ve. Do you have problems with any of the following? None of the above 02/01/2024 Food Insecurity Answer Date Recorded Within the past 12 months, y ou worried that your food would run out before you got money to buy more: Never True 02/01/2024 Within the past 12 months,th e food you bought just didn't last and you didn't have enough money to get more: Never True 02/2024 Transportation Answer Date Recorded In the past 12 months, has l ack of transportation kept you from medical appts, meetings, work or from getting things needed for daily living? No 02/01/2024 Utilities Answer Date Recorded In the past 12 months, has t he electric, gas, oil or water company threatened to shut off services in your home? No 02/01/2024 Depression Answer Date Recorded Patient Health Questionnaire-2 Score 6 03/05/2024 Internet Access Answer Date Recorded Internet Access Q1 Yes 02/22/2024 Internet Access Q2 Not on file 02/22/2024 Comments Unknown Sex and Gender Information Value Date Recorded Sex Assigned at Female 04/24/2022 10:40 AM EDT Legal Sex Female 10:40 AM EDT Gender Identity Female 04/24/2022 10:40 AM EDT Sexual Orientation Choose not to disclose 2021 10:40 AM EDT documented as of this encounter Plan of Treatment Not on file documented as of this encounter Visit Diagnoses Diagnosis Acute maxillary sinusitis, recurrence not specified documented in this encounter Additional Health Concerns Assessment Noted Time PHQ-9 Depression Total Score: 16 024 9:27 AM EDT documented as of this encounter Care Teams Rural Health Consultant Relationship Specialty Start Date End Date Raissa Veras MD [address] [place] [id number] PCP - General Family Medicine 10/28/21 documented as of this encounter
--- OUTSIDE RECORDS SUMMARY | 2024-07-21 19:34 | XMS_ITS | Clinical Summary ---
Author Organization [employer] Address [address] [place] [address] 7[address] [place] [address] Care Team Providers Care Production Line Mechanic Name Role Phone Raissa Veras MD Primary Care Provide r Allergies No known active allergies Medications * This document contains information received from the source organization and may not represent a complete record from that organization. famotidine (Pepcid) 20 MG tablet TAKE 1 TABLET BY MOUTH TWICE A DAY 180 tablet 3 Active norethindrone (Micronor) 0.35 MG tablet TAKE 1 TABLET BY MOUTH EVERY DAY 28 tablet 3 3 Active meclizine (Antivert) 25 MG tabletIndications :Dizziness Take 1 tablet (25 mg) by mouth if needed in the morning, at noon, and at bedtime for dizziness. 30 tablet 1 4 Active losartan-hydroCHL OROthiazide (Hyzaar) 100-25 MG tabletIndications :Essential hypertension Take 1 tablet by mouth Once per day. 30 tablet 11 4 02/21/20 25 Active verapamil SR (Calan SR) 240 MG ER tabletIndications :Resistant hypertension Take 1 tablet (240 mg) by mouth Once per day. Do not crush or chew. 30 tablet 11 4 02/21/20 25 Active ferrous gluconate (Fergon) 324 (38 Fe) MG tabletIndications :Iron deficiency anemia due to chronic blood loss TAKE 1 TABLET (324 MG) BY MOUTH WITH BREAKFAST, WITH LUNCH, AND WITH EVENING MEAL. 270 tablet 4 03/03/20 25 Active loratadine (Claritin) 10 MG tabletIndications :Acute maxillary sinusitis, recurrence not specified TAKE 1 TABLET (10 MG) BY MOUTH ONCE PER DAY. 90 tablet Active Active Problems Problem Noted Date Diagnosed Date BRITANY (generalized anxiety disorder) 03/05/2024 PTSD (post-traumatic stress disorder) 03/05/2024 Acute maxillary sinusitis 02/21/2024 Resistant hypertension 02/21/2024 Moderate episode of recurrent major depressive d isorder 02/21/2024 Iron deficiency anemia due to chronic blood loss 01/02/2024 Sickle cell trait 01/02/2024 Fibroid uterus 11/21/2023 Class 1 obesity due to exces s calories with serious comorbidity and body mass index (BMI) of 30.0 to 30.9 in adult 11/21/2023 Assessment & Plan (11/21/2023 4:30 PM EDT): Today extensive discussion was done about life style modifications I advise healthy diet (low calorie) and cardiovascular exercise Other chest pain 03/26/2023 Dizziness 01/30/2023 Assessment & Plan (01/02/2024 4:44 PM EDT): Likely multifactorial, Hgb done at office went down yo 9.5, she is being follow closely by OBGYN and cardiology, today I will refer her to ENT for possible vertigo and to hematology due to WALDEMAR and sickle cell trait I advise proper hydration, change position slowly and also I increase her iron to TID Obesity (BMI 30-39.9) 01/30/2023 Pelvic pain 01/30/2023 Amenorrhea 12/28/2022 Assessment & Plan (12/28/2022 12:28 PM EDT): Urine HCG is negative, order serum HCG. If negative, repeat in 1-2 weeks, pt expresses desire of not keeping the , will provide counseling at test results. FU with PCP in 4 weeks. Dyspareunia in female 11/13/2022 Colon cancer screening 11/13/2022 Hypersomnia 06/01/2022 Essential hypertension 06/01/2022 Assessment & Plan (02/21/2024 4:40 PM EDT): I prescribed again her verapamil which she reports is the one that works for her I advise to take it only once a day, I also tols her losartan hydrochlorothiazide is also once a day I advise low Na diet I want her to follow back with cardiology I am also referring her to nephrology for resistant HTN Assessment & Plan (11/21/2023 4:29 PM EDT): It was advise: - Aerobic exercise to reduce BP. Initial goal of 30 min walk 3-5x/week. Increase as tolerated. - low-sodium diet (goal: <2g/day) and heart healthy diet such as DASH to reduce BP and prevent ASCVD. - Home BP monitoring 1-2 x day with goal of <140/90. - Seek immediate medical attention for chest pain, palpitations, SOB, syncope, or sudden changes in mental status. - Do not change or discontinue current prescriptions without first consulting health care provider -I advise to call cardiology office for possible medication adjustment, I did not change her meds to avoid confusion Assessment & Plan (03/26/2023 10:14 AM EDT): -I discontinue her carvedilol, patient will continue to take verapamil 240mg daily and losartan/HCTZ 100-25mg daily - Aerobic exercise to reduce BP. Initial goal of 30 min walk 3-5x/week. Increase as tolerated. - low-sodium diet (goal: <2g/day) and heart healthy diet such as DASH to reduce BP and prevent ASCVD. - Home BP monitoring 1-2 x day with goal of <140/90. - Seek immediate medical attention for chest pain, palpitations, SOB, syncope, or sudden changes in mental status. - Do not change or discontinue current prescriptions without first consulting health care provider Assessment & Plan (01/31/2023 2:52 PM EDT): Blood pressure has not being at goal I advise low Na diet and weight reduction, today I will refer to weight management C/w losartan/HCTZ 100-25mg Today I added carvedilol 6.25mg BID (lisinopril cuase caugh and amlodipine cause ankle swelling) Assessment & Plan (12/28/2022 12:28 PM EDT): Uncontrolled today, pt is out of medications. Refill for losartan/HCTZ 100-25 ready at pharmacy for pickup FU with PCP next month. Assessment & Plan (11/13/2022 1:14 PM EDT): Maintenance: BMP: Lipid Panel: ASCVD Risk: Calculate pending updated labs EKG: Obtain baseline at f/u - Aerobic exercise to reduce BP. Initial goal of 30 min walk 3-5x/week. Increase as tolerated. - low-sodium diet (goal: <2g/day) and heart healthy diet such as DASH to reduce BP and prevent ASCVD. - Home BP monitoring 1-2 x day with goal of <140/90. - Seek immediate medical attention for chest pain, palpitations, SOB, syncope, or sudden changes in mental status. -I increase her hyzaaar to 100/25mg daily - Do not change or discontinue current prescriptions without first consulting health care provider Encounters Date Type Department Care Team Description 07/09/2024 Telephone [facility] [address] [place] [address] Raissa Veras MD No Show 05/10/2024 Refill [facility] [address] [place], [place] [phone] Rosalba Howell, DO Iron deficiency anemia due to chronic blood loss 05/10/2024 Refill [facility] [address] [place], [place] [phone] Raissa Veras MD Acute maxillary sinusitis, recurrence not specified 05/08/2024 Patient Outreach [facility] [address] [place], [place] [phone] Raissa Veras MD Pre-visit Planning ([facility] screening completed on 02/01/2024) from Last 3 Months Immunizations Name Administration Dates Next Due Influenza injectable quadrivalent preservative f ree 04/16/2023 Influenza, IIV3, injectable 04/16/2023 Moderna Covid-19 Vaccine 12+ 04/16/2023 Social History Tobacco Use Types Packs/Day Years Used Date Smoking Tobacco: Never Passive Smoke Exposure: Never Smokeless Tobacco: Never Tobacco Cessation:Counseling Given: Not Answered Alcohol Use Standard Drinks/Week Comments Yes 0 [...] not to disclose 2021 10:40 AM EDT Last Filed Vital Signs Vital Sign Reading Time Taken Comments Blood Pressure 137/91 02/21/2024 3:38 PM EDT Pulse 80 02/21/2024 3:38 PM EDT Temperature 36.7 ??C (98.1 ??F) 02/21/2024 3:38 PM ED T Respiratory Rate 20 02/21/2024 3:38 PM EDT Oxygen Saturation 98% 02/21/2024 3:38 PM EDT Inhaled Oxygen Concentration - - Weight 79.7 kg (175 lb 9.6 oz) 02/21/2024 3:38 P M EDT Height 160 cm (5' 3 ) 02/21/2024 3:38 PM EDT Body Mass Index 31.11 02/21/2024 3:38 PM EDT Plan of Treatment Health Maintenance Due Date Last Done Comments CT Colonography 1975 Colonoscopy 1973 Colorectal Cancer Screening 1975 FIT DNA/Cologuard 1973 FIT 1975 FOBT 1975 HIV Screening 1975 Sigmoidoscopy 1975 Family Planning (PISQ) 1988 Hepatitis C Screening 11/27/1991 DTaP/Tdap/Td Vaccines (1 - Tdap) 1992 Hepatitis B Vaccines (1 of 3 - 19+ 3-dose series) 1992 Zoster Vaccines (1 of 2) 11/27/2023 Depression Monitoring (PHQ-9) 09/02/2024 03/05/2024, 03/05/2024 Mammogram 09/16/2024 09/17/2023, 01/19/2022 SDOH Screening 01/31/2025 02/01/2024 Alcohol/Substance Use Screening 02/20/2025 02/21/2024 Tobacco Screening 02/20/2025 02/21/2024 Depression Screening 03/05/2025 03/05/2024, 03/05/20 24 Pap Smear 07/02/2026 07/02/2023, 0507/2021, 11/03/2021 Cervical Cancer Screening 11/03/2026 HPV/Cotest 11/03/2026 11/03/2021 Lipid Panel 11/20/2028 11/21/2023, 10/18/2021 RSV Patients and Patients Aged 60 years or older (1 - 1-dose 75+ series) 2048 COVID-19 Vaccine Completed 03/10/2024, , 07/19/2021, Additional history exists Influenza Vaccine Completed 03/10/2024, , 04/16/2023 HIB Vaccines Aged Out No longer eligi ble based on patient's age to complete this topic HPV Vaccines Aged Out No longer eligi ble based on patient's age to complete this topic Hepatitis A Vaccines Aged Out No long er eligible based on patient's age to complete this topic IPV Vaccines Aged Out No longer eligi ble based on patient's age to complete this topic Meningococcal Vaccine Aged Out No navarro tiffanie eligible based on patient's age to complete this topic Pneumococcal Vaccine: Pediatrics (0 to 5 Years) and At-Risk Patients (6 to 64 Years) Aged Out No longer eligible based on patient's age to complete this topic RSV under 20 months Aged Out No longe r eligible based on patient's age to complete this topic Rotavirus Vaccines Aged Out No longer eligible based on patient's age to complete this topic Procedures Procedure Name Priority Date/Time Associated Diagnosis Comments LIPID PANEL, STANDARD Routine 11/21/2023 4:09 PM EDT Essential hypertension BI MAMMOGRAM SCREENING TOMOSYNTHESIS BILATERAL Routine 09/17/2023 3:52 PM EDT PAP SMEAR Routine 07/02/2023 2:00 PM EST THINPREP IMAGING PAP AND HPV MRNA E6/E7, WITH CT/NG, TRICHOMONAS Routine 11/03/2021 11:51 AM EDT from Last 3 Months or Most Recently Relevant to Health Maintenance Results * (ABNORMAL) Lipid Panel, Standard (11/21/2023 4:09 PM EDT) Triglycerides 198(H) <150 mg/dL [facility] Comment:Desirable Triglyceri de: less than 150 mg/dLBorderline High Triglyceride 150-199 mg/dLHigh Triglyceride: 200-499 mg/dLVery High Triglyceride: greater than or equal to 5OO mg/dL Cholesterol 171 <200 mg/dL [facility] Comment:Desirable Cholestero l: less than 200 mg/dLBorderline High Cholesterol: 200-239 mg/dLHigh Cholesterol: greater than 239 mg/dL LDL Cholesterol Calculated 82 <100 mg/dL [facility] Comment:Desirable LDL: less than 100 mg/dLNear Optimal/Above Optimal LDL: 110- 129 mg/dLBorderline High LDL: 130-159 mg/dLHigh LDL: 160-189 mg/dLVery High LDL: greater than or equal to 190 mg/dL HDL Cholesterol 50 >40 mg/dL [facility] Comment:Desirable HDL: great er than 40 mg/dL Note: This HDL assay may give artificially low results in patients with liver disease. Blood Venous blood specimen / Unknown 11/21/2023 4:09 PM EDT 11/21/2023 5:52 PM EDT us Raissa Warner MD LAB BLOOD ORDERABLES Final Result Performing Organization Address [facility]/State/ZIP Co de Phone Number [facility] [address] [place] [phone] * BI Mammogram Screening Tomosynthesis Bilateral (09/17/2023 3:52 PM EDT) Anatomical Region Laterality Modality Breast Bilateral Mammography 09/17/2023 3:52 PM EDT Narrative 10/16/2023 6:18 AM EDT ? [facility] [place] ? [address] ?[place] [address] ? Mammography Report ? Signed ? Patient: Sirkisson,Naideen ?MR#: [id number] ?? [id number] ? : 1975 ?Acct:[id number] ? Age/Sex: 47 / F ?ADM Date: 03/25/24 ? Loc: HO.MAMMO ? Attending Dr: Maximus Siddiqui MD ? Ordering Physician: Maximus Siddiqui MD ?Results: 1Negativ ?? e ? Date of Service: 09/17/23 ?Follow Up: 1 Year From Orig ?? inal Mammogram ? Procedure(s): MM tomosynthesis screening BI ?? Accession Number(s): [id number] ? cc: Raissa Veras MD; Maximus Siddiqui MD ? EXAMINATION: ?? MM SCREENING DIGITAL BREAST TOMOSYNTHESIS, BILATERAL ? CLINICAL INFORMATION: ? Screening. Asymptomatic. ? COMPARISON: ?? Mammography: This study is compared with the only prior mammogram from ?? 2021. ? TECHNIQUE: ?? Digital breast tomosynthesis is performed in both the craniocaudal and ?? mediolateral oblique views along with computer-aided detection (CAD). ?? Synthesized 2D images are generated from the tomosynthesis. ? FINDINGS: ?? There are scattered areas of fibroglandular density (ACR BI-RADS breast ?? composition Category b). ? There are no significant masses, abnormal calcifications, or other ?? abnormalities. ? MM/MM tomosynthesis screening BI ?? IMPRESSION: ?? No mammographic evidence of malignancy. ? ASSESSMENT: ? BI-RADS BI-RADS 1 - Negative ? RECOMMENDATION: ?? Routine annual mammography screening. ? 1 year F/U ? This examination should not preclude the clinical evaluation of a ?? suspicious palpable abnormality. ? This patient's information was entered into a reminder system with a ?? target due date for their next mammogram. ? Dictated By: ?Alena Rosen MD ? Signed By: ?<Electronically signed by Alena Rosen MD in OV> ? 10/16/23613 ? DD/DT: 09/16/ 1552 ? TD/TT: ? Continuous Miner Operator: ? Procedure Note Donotuseinterpreter, Image - 10/16/2023 [facility] [address] [place], [place] [address] Mammography Report Signed Patient: Laina BellMR#: [id number] : 1975Acct:[id number] Age/Sex: 47 / FADM Date: 09/17/23 Loc: HO.MAMMO Attending Dr: Maximus Siddiqui MD Ordering Physician: Maximus Siddiqui MDResults: 1Negativ e Date of Service: 09/17/23Follow Up: 1 Year From Orig inal Mammogram Procedure(s): MM tomosynthesis screening BI Accession Number(s): [id number] cc: Raissa Veras MD; Maximus Siddiqui MD EXAMINATION: MM SCREENING DIGITAL BREAST TOMOSYNTHESIS, BILATERAL CLINICAL INFORMATION: Screening. Asymptomatic. COMPARISON: Mammography: This study is compared with the only prior mammogram from 2021. TECHNIQUE: Digital breast tomosynthesis is performed in both the craniocaudal and mediolateral oblique views along with computer-aided detection (CAD). Synthesized 2D images are generated from the tomosynthesis. FINDINGS: There are scattered areas of fibroglandular density (ACR BI-RADS breast composition Category b). There are no significant masses, abnormal calcifications, or other abnormalities. MM/MM tomosynthesis screening BI IMPRESSION: No mammographic evidence of malignancy. ASSESSMENT: BI-RADS BI-RADS 1 - Negative RECOMMENDATION: Routine annual mammography screening. 1 year F/U This examination should not preclude the clinical evaluation of a suspicious palpable abnormality. This patient's information was entered into a reminder system with a target due date for their next mammogram. Dictated By: Alena Rosen MD Signed By: <Electronically signed by Alena Rosen MD in OV> 10/16/23 0614 DD/ 1552 TD/TT: Continuous Miner Operator: us [facility] External Provider IMG BI PROCEDURES Final Result * Pap Smear (07/02/2023 2:00 PM EST) 07/02/2023 2:00 PM EST 07/04/2023 10:22 AM EST Narrative [facility] - 07/11/2023 11:37 AM EST ----- ------- Name: Laina Bell ?Age/Sex: 47/F ? : 1975 Unit#: [id number] ?? Attend Dr: Maximus Siddiqui MD ?Re07/02/23 ?Status: DEP REF ? Location: .LAB ?Disch: ? ----- ------- SPEC : [id number] ?RECD: 07/04/23-2 ? STATUS: ??SOUT ? REQ NUM: [id number] ? GUMARO: 07/02/23-1400 ? SUBM DR: Maximus Siddiqui MD ? ENTERED: ??07/04/23-1348 ?SP TYPE: Pap Smr ?OTHR DR: Raissa Veras MD ? ORDERED: ??Pap Smear ? Interpretation ?? Satisfactory for evaluation. ?? Negative for intraepithelial lesion or malignancy. ?HPV mRNA E6/E7: ?NOT DETECTED ? This assay detects E6/E7 viral messenger RNA (mRNA) from 14 high-risk HPV types (16, 18, ?? 31, 33, 35, 39, 45, 51, 52, 56, 58, 59, 66, 68) ?? HPV testing performed by [facility], [place], [place]. ??See reference laboratory ?? portion of the EMR for entire report. ?Clinical Information LMP: 06/03/2023 Previous PAP test: 1 year ago, Unknown findings Other history: Abnormal uterine and vaginal bleeding, unspecified ? Material Received ?? ThinPrep-Cervical Copies To: ?? Raissa Veras MD ?? [address] [facility] ?? [place] [address] ?? [phone] ?? Maximus Siddiqui MD ?? [address] [place] [address] [address] ?? [place] [address] ?? [phone] ----- ------- Signed (signature on file) JOSE Billings (ASCP) 07/11/23 1137 ? ----- ------- ? END OF REPORT ? us Generic External Data Provider LAB CYTOLOGY ANITA TYSON Final Result [facility] [address] [place] [phone] * THINPREP TIS PAP AND HPV mRNA E6/E7, CT/NG, TRICH (11/03/2021 11:51 AM EDT) Chlamydia trachomatis RNA, TMA, Urogenital NOT DETECTED NOT DETECTED [email or web address] Clinical Information: None given [email or web address] COMMENT SEE COMMENT [facility] Comment: The analytical performance characteristics of this assay, when used to test SurePath(TM) specimens have been determined by [facility]. The modifications have not been cleared or approved by the FDA. This assay has been validated pursuant to the CLIA regulations and is used for clinical purposes. ?? For additional information, please refer to https://education.SeatID.[employer]Par Sciences/faq/ZTR765 (This link is being provided for information/ educational purposes only.) ?? COMMENT SEE COMMENT [facility] Comment: EXPLANATORY NOTE: ? The Pap is a screening test for cervical cancer. It is ?? not a diagnostic test and is subject to false negative ?? and false positive results. It is most reliable when a ?? satisfactory sample, regularly obtained, is submitted ?? with relevant clinical findings and history, and when ?? the Pap result is evaluated along with historic and ?? current clinical information. ?? COMMENT: This Pap test has been evaluated with computer assisted technology. [facility] Front Window Cashier: SEE COMMENT [facility] Comment: MAA CT(ASCP) CT screening location: [address] ??[address] HPV nRNA E6/E7 Not Detected Not Detected [facility] Comment: Methodology: Internet Systems Administrator-Mediated Amplification This assay detects E6/E7 viral messenger RNA (mRNA) from 14 high-risk HPV types (16,18,31,33,35,39,45,51,52,56,58,59,66,68). ? The analytical performance characteristics of this assay have been determined by [facility]. The modifications have not been cleared or approved by the FDA. This assay has been validated pursuant to the CLIA regulations and is used for clinical purposes. ?? For additional information, please refer to http://[employer] Analytics.Dafiti/faq/UKJ890o9 (This link if provided for information/ educational purposes only.) Interpretation/Re sult: Negative for intraepithelial lesion or malignancy. [facility] LMP: 10/30/2021 [facility] Neisseria gonorrhoeae RNA, TMA, Urogenital NOT DETECTED NOT DETECTED [facility] Prev. BX: NONE GIVEN [facility] Prev. PAP: NONE GIVEN [facility] SOURCE: None given [facility] Statement Of Adequacy: SEE COMMENT [facility] Comment: Satisfactory for evaluation. Endocervical/transformation zone component present. Trichomonas vaginalis, QL, TMA, PAP Vial NOT DETECTED NOT DETECTED [facility] Comment: The analytical performance characteristics of this assay have been determined by [facility]. The modifications have not been cleared or approved by the FDA. This assay has been validated pursuant to the CLIA regulations and is used for clinical purposes. ?? For additional information, please refer to http://[employer].Dafiti/ faq/Trichomonastma (This link is being provided for information/ educational purposes only.) ?? 11/03/2021 11:5 1 AM EDT Gabriela Dye CNM LAB PATHOLOGY ORDERABLES Final Result [facility] [address] from Last 3 Months or Most Recently Relevant to Health Maintenance Insurance [facility] Care Teams Production Line Mechanic Relationship Specialty Start Date End Date Raissa Veras MD [address] [place] [phone] PCP - General Family Medicine 10/28/21
--- OUTSIDE RECORDS SUMMARY | 2024-07-21 19:34 | XMS_ITS | Encounter Summary ---
Author Organization [employer] Address [address] [place] [address] 7 [place] [address] Care Team Providers Care Machine I Engraver Name Role Phone Raissa Veras MD Primary Care Provide r Reason for Visit * Reason Comments Med Change Request Encounter Details Date Type Department Care Team ([facility] st Contact Info) Description 01/02/2024 Refill [facility] [address] [place], [place] [phone] Raissa Veras MD [address] [place] [address] Iron deficiency anemia due to chronic blood loss Social History Tobacco Use Types Packs/Day Years Used Date Smoking Tobacco: Never Passive Smoke Exposure: Never Smokeless Tobacco: Never Alcohol Use Standard Drinks/Week Comments Yes 0 (1 standard drink = 0.6 oz pur e alcohol) oca Depression Answer Date Recorded Patient Health Questionnaire-9 Score 0 11/13/2022 Housing Stability Answer Date Recorded What is your housing situation today? I have dom hayward 04/19/[address] you li ve. Do you have problems with any of the following? None of the above 04/19/2023 Food Insecurity Answer Date Recorded Within the past 12 months, y ou worried that your food would run out before you got money to buy more: Sometimes True 2022 Within the past 12 months,th e food you bought just didn't last and you didn't have enough money to get more: Sometimes True 04/19/2023 Transportation Answer Date Recorded In the past 12 months, has l ack of transportation kept you from medical appts, meetings, work or from getting things needed for daily living? Yes, it has kept me from non-medical meetings, work, or getting things that I need;Yes, it has kept me from medical appointments or getting medications. 04/03/2023 Utilities Answer Date Recorded In the past 12 months, has t he electric, gas, oil or water company threatened to shut off services in your home? No 04/19/2023 Depression Answer Date Recorded Patient Health Questionnaire-2 Score 0 11/13/2022 Comments Unknown Sex and Gender Information Value Date Recorded Sex Assigned at Female 04/24/2022 10:40 AM EDT Legal Sex Female 10:40 AM EDT Gender Identity Female 04/24/2022 10:40 AM EDT Sexual Orientation Choose not to disclose 2021 10:40 AM EDT documented as of this encounter Plan of Treatment Not on file documented as of this encounter Visit Diagnoses Diagnosis Iron deficiency anemia due to chronic blood loss Iron deficiency anemia secondary to blood loss (chronic) documented in this encounter Additional Health Concerns Assessment Noted Time PHQ-9 Depression Total Score: 0 11/14/19 23 11:38 AM EDT documented as of this encounter Care Teams Machine I Engraver Relationship Specialty Start Date End Date Raissa Veras MD [address] [place] [phone] PCP - General Family Medicine 10/28/21 documented as of this encounter
--- OUTSIDE RECORDS SUMMARY | 2024-07-21 19:34 | XMS_ITS | Encounter Summary ---
Author Organization [employer] Address [address] [place] [address] 7 [place] [address] Care Team Providers Care Dump Operator Name Role Phone Raissa Veras MD Primary Care Provide r Reason for Visit * Reason Comments Med Change Request Encounter Details Date Type Department Care Team ([facility] st Contact Info) Description 05/10/2024 Refill [facility] MED[facility]INE [address] [place], [place] [phone] Rosalba Howell DO [address] [place] [address] Iron deficiency anemia due to chronic blood [...] documented as of this encounter Care Teams Dump Operator Relationship Specialty Start Date End Date Raissa Veras MD [address] [place] [phone] PCP - General Family Medicine 10/28/21 documented as of this encounter
--- OUTSIDE RECORDS SUMMARY | 2024-07-21 19:34 | XMS_ITS | Data Portability ---
Author Organization [place] ZAVALA MD [facility], Main Office Address [address] [place] [address] Assessment No assessment recorded. Plan of Treatment [...] 09:00:42 amylase + lipase, serum [address], [address] [facility], [place], [address], 04/24/2024 09:00:42 HbA1c (hemoglob in A1c), blood [address], [address] [place], [address], 04/24/2024 09:00:42 TSH + free T4, serum [address], [address] [place], [address], 04/24/2024 09:00:42 Referral None recorded. Procedures None recorded. Surgeries None recorded. Imaging None recorded. Medication Orders None recorded. Patient TargetsNo targets recorded. Patient InstructionsNo instructions recorded. Reason for Referral None Reported. Results Created Date Observation Date Name Description Value Unit Range Abnormal Flag Note LastModifiedBy Organization Detail LastModifiedTime 04/17/2004/18/2024 TSH+F REE T4 TSH 2.690 uIU/m L 0.450- 4.500 normal Not Available [facility] ([facility]) [address] [place], [address], 04/30/2024 08:09:15 04/17/2004/18/2024 TSH+F REE T4 T4,free(dire ct) 1.32 NG/dL 0.82-1 .77 normal Not Available [facility] ([facility]) [address] [place], [address], 04/30/2024 08:09:15 04/17/2004/19/2024 QUANT IFERO N-TB GOLD PLUS quantiferon incubation Incuba tion perfor med. Not Available [facility] ([facility]) [address] [place], [address], 04/30/2024 08:09:15 04/17/2004/19/2024 QUANT IFERO N-TB GOLD [...] ol for the test. Not Available [facility] ([facility]) [address] [place], [address], 04/30/2024 08:09:15 04/17/2004/20/2024 QUANT IFERO N-TB GOLD PLUS quantiferon TB1 Ag value 9.79 IU/mL Not Available [facility] ([facility]) [address] [place], [address], 04/30/2024 08:09:15 04/17/2004/20/2024 QUANT IFERO N-TB GOLD PLUS quantiferon TB2 Ag value 8.97 IU/mL Not Available [facility] ([facility]) [address] [place], [address], 04/30/2024 08:09:15 04/17/2004/20/2024 QUANT IFERO N-TB GOLD PLUS quantiferon nil value 0.11 IU/mL Not Available [facility] ([facility]) [address] [place], [address], 04/30/2024 08:09:15 04/17/2004/20/2024 QUANT IFERO N-TB GOLD PLUS quantiferon mitogen value >10.00 IU/mL Not Available [facility] ([facility]) [address] [place], [address], 04/30/2024 08:09:15 04/17/2004/20/2024 QUANT IFERO N-TB GOLD [...] y metho dolog y Not Available [facility] ([facility]) [address] [facility], [place], [address], 04/30/2024 08:09:15 04/17/20 24 04/18/2024 HEMOG LOBIN A1C hemoglobin A1C 5.2 % 4.8-5. 6 normal Predi abete s: 5.7 - 6.4 Diabe pili: >6.4 Glyce arley contr ol for adult s with diabe pili: <7.0 Not Available [facility] ([facility]) [address] [facility], [place], [address], 04/30/2024 08:09:16 04/17/20 24 04/18/2024 HCV ANTIB BRIDGETTE hep C virus Ab Non Reacti ve non reacti ve HCV antib bridgette alone does not diffe renti ate betwe en previ ously resol sterling infec tion and activ e infec tion. Equiv ocal and React harry HCV antib bridgetet resul ts shoul d be follo wed up with an HCV RNA test to suppo rt the diagn osis of activ e HCV infec tion. Not Available [facility] ([facility]) [address] [facility], [place], [address], 04/30/2024 08:09:16 04/17/20 24 04/18/2024 AST (SGOT ) AST (SGOT) 29 IU/L 0-40 normal Not Available [facility] ([facility]) [address] [facility] [place], [address], 04/30/2024 08:09:17 04/17/2004/18/2024 ALT (SGPT ) ALT (SGPT) 30 IU/L 0-32 normal Not Available [facility] ([facility]) [address] [facility] [place], [address], 04/30/2024 08:09:17 04/17/2004/18/2024 RPR RPR Non Reacti ve non reacti ve Not Available [facility] ([facility]) [address] [facility] [place], [address], 04/30/2024 08:09:18 04/17/2004/18/2024 AMYLA SE amylase 99 U/L 31-110 normal Not Available [facility] ([facility]) [address] [facility] [place], [address], 04/30/2024 08:09:18 04/17/2004/18/2024 LIPAS E lipase 42 U/L 14-72 normal Not Available [facility] ([facility]) [address] [facility] [place], [address], 04/30/2024 08:09:19 04/17/2004/30/2024 CREAT INE, SERUM creatine, serum TNP mg/dL [facility] was unabl e to colle ct [...] Drug Admin istra tion. Not Available [facility] ([facility]) [address] [facility] [place], [address], 04/30/2024 08:09:19 04/17/2004/18/2024 HBSAG SCREE N HBsAg screen Negati ve negati ve Not Available [facility] ([facility]) [address] [facility], [place], [address], 04/30/2024 08:09:20 04/17/2004/30/[address] PROBL EM request problem TNP [facility] was unabl e to colle ct suffi cient speci men to perfo rm the follo wing test( s), and is provi ding the patie nt with re-co llect ion instr uctio ns. TEST: [id number] 2 Creat ine, Serum Not Available [facility] ([facility]) [address] [facility], [place], [address], 04/30/2024 08:09:20 05/19/2005/20/2024 CREAT ININE creatinine 0.70 mg/dL 0.57-1 .00 normal Not Available [facility] ([facility]) [address] [facility], [place], [address], 05/20/2024 06:05:17 05/19/2005/20/2024 CREAT ININE eGFR 105 mL/mi n/1.7 3 >59 normal Not Available [facility] ([facility]) [address] [facility], [place], [address], 05/20/2024 06:05:17 04/04/20 24 04/02/2024 XR, chest , 2 view No observ ation record ed. [email or web address] Not Available 04/09 13:17:06 Result Notes None recorded. Procedures Surgical History None recorded. Imaging Results Imaging Date Name Status LastModified by Organ ation Details LastModified Time 04/02/2024 XR, chest, 2 view completed [email or web address] Information not available 04/09/2024 13:17:06 Procedure Notes [...] /min 14 /min 98.36 [degF] 33.1 kg/m2 04754.6 6 g 100 % 100 % 114 mm[Hg] 88 mm[Hg] Mercedes UREÑA MD [facility] 4 15:41:31 Social History None recorded. Functional Status None recorded. Mental Status None recorded. Family History Nothing Reported. Medical History No medical history recorded. Gynecological HistoryNo gynecological history recorded. Obstetrics History GPAL:G 0 P 0 0 0 0 Past Encounters Encounter ID Performer Location Encounter Start Date Encounter Closed Date Diagnosis/Indication Diagnosis SNOMED-CT Code Diagnosis ICD10 Code Diagnosis Note [id number] Maryam Ureña MD Main Office [address] [facility], [place] [address] 04/17/2024 15:20:33 04/17/2024 16:10:05 Nonspecific tuberculin test reaction 217511164 R76.12 R/O 03/2024 quantifero n positive. previous ones negative, including Chest x ray unremarkab lesuggest repeating quantifero n;if positive, then tx w Rifampin 600mg po qd x 4 monthspreg aidee contraindi cated during txpotentia l side effects reviewed such as allergic reactions, n/v/d, change in urine/swea t color. 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 particularly abdomnial area.has tried to lose weight.no pancreatitis hxno thyroid nor medullary cancer hx.no GI obstructionconstipationno hxno gallstone nor kidney stonefibroids hx on IUDdenies HIVreports HBV immuneno med allergies02/2024 high tryglicerides 198; chol 171 TSH nl 2023no drink for ETOHno smoking Maryam Ureña MD [address] [place] [address], [phone], [place] - MARYAM UREÑA MD [facility] 04/17/2024 22:21:33 OBGyn Episode No OBEpisode recorded.
--- OUTSIDE RECORDS SUMMARY | 2024-07-21 19:34 | XMS_ITS | Encounter Summary ---
Author Organization [employer] Address [address] [place] [address] [address] [place] [address] Care Team Providers Care Cheese Processor Name Role Phone Raissa Veras MD Primary Care Provide r Reason for Visit * Reason Comments Med Refill Encounter Details Date Type Department Care Team ([facility] st Contact Info) Description 02/22/2023 Refill [facility] [address] [place] [address] Raissa Veras MD [address] [place] [address] Social History Tobacco Use Types Packs/Day Years Used Date Smoking Tobacco: Never Passive Smoke Exposure: Never Smokeless Tobacco: Never Alcohol Use Standard Drinks/Week Comments Yes 0 (1 standard drink = 0.6 oz pur e alcohol) oca Depression Answer Date Recorded Patient Health Questionnaire-9 Score 0 11/13/2022 Depression Answer Date Recorded Patient Health Questionnaire-2 [...] documented as of this encounter Visit Diagnoses Not on filedocumented in this encounter Additional Health Concerns Assessment Noted Time PHQ-9 Depression Total Score: 0 11/14/19 23 11:38 AM EDT documented as of this encounter Care Teams Cheese Processor Relationship Specialty Start Date End Date Raissa Veras MD [address] [place] [address] PCP - General Family Medicine 10/28/21 documented as of this encounter
--- OUTSIDE RECORDS SUMMARY | 2024-07-21 19:34 | XMS_ITS | Encounter Summary ---
Author Organization [employer] Address [address] [place] [address] [place] [address] Care Team Providers Care Wharf Worker Name Role Phone Raissa Veras MD Primary Care Provide r Reason for Visit * Reason Onset Date Comments No Show 07/09/2024 Encounter Details Date Type Department Care Team ([facility] Contact Info) Description 07/09/2024 Telephone [facility] MED[facility]INE [address] [place], [place] [phone] Raissa Veras MD [address] [place] [address] No Show Social History Tobacco Use Types Packs/Day Years [...] AM EDT documented as of this encounter Miscellaneous Notes * Telephone Encounter - Indu Christiansen - 07/09/2024 4:17 PM EST Pt no showed to appt on 07/09/24 documented in this encounter Plan of Treatment Not on file documented as of this encounter Visit Diagnoses Not on filedocumented in this encounter Additional Health Concerns Assessment Noted Time PHQ-9 Depression Total Score: 16 024 9:27 AM EDT documented as of this encounter Care Teams Wharf Worker Relationship Specialty Start Date End Date Raissa Veras MD [address] [place] [address] PCP - General Family Medicine 10/28/21 documented as of this encounter
== END 2024-07-21 15:52 | disposition home or self-care (01) ==
PROVIDERS: PCP Internal Medicine; Visit Provider Internal Medicine Hypertension Specialist
DX: I10 Essential (primary) hypertension (principal)
CPT/HCPCS: 93790; 99214

== ENCOUNTER → 2024-07-21 15:34 | Outpatient (BNVA) | payer OTHER, SELFPAY | PROVIDERS: PCP Internal Medicine; Visit Provider Internal Medicine Hypertension Specialist | DX: I10 Essential (primary) hypertension (principal) | CPT/HCPCS: 99212 ==

== ENCOUNTER 2024-08-04 14:57 | Outpatient (AMB) | payer OTHER, SELFPAY ==
--- NOTE | 2024-08-04 15:30 | MHC.OFFVIS ---
Intake Visit Reasons: IUD check/do not osbaldo Sales Closer: Sales Closer Present (Nellie) Allergies carvedilol Allergy (Mild, Verified 07/21/24 15:37) Dizziness Bleach (Sodium Hypochlorite) [BLEACH (SODIUM HYPOCHLORITE)] Allergy (Unknown, Verified 07/21/24 15:37) RASH verapamil Adverse Reaction (Mild, Verified 07/21/24 15:37) Palpitations HPI Comments Details: The patient is presenting for IUD check after 1 st period following IUD insertion. 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 [facility] Medical History Anxiety with depression Acute maxillary sinusitis Sickle cell trait Iron deficiency anemia due to chronic blood loss Other chest pain Pelvic pain Dizziness Amenorrhea Dyspareunia in female Hypersomnia HTN (hypertension) Surgical History Hx of lumpectomy Family History Father CAD (coronary artery disease) CHF (congestive heart failure) Mother CAD (coronary artery disease) CHF (congestive heart failure) Social History Alcohol intake: never Patient Tobacco Use Status: Never used Tobacco Review of Systems Const All systems reviewed & are unremarkable except as noted in HPI and below Physical Exam General: Yes no CVA tenderness External Female Exam: normal external appearance and normal appearance of the urethra Speculum Exam - Vagina: normal appearance of the vagina, normal palpation, no lesions and no masses Speculum Exam - Cervix: normal appearance of the cervix, normal palpation, no lesions, no masses, nontender and Other cervical findings present (IUD string in place) Bimanual exam- vagina & uterus: normal bimanual exam, normal palpation, uterine size normal, normal palpation, uterine shape normal, No Cervical tenderness present and non-tender Bimanual Exam- Adnexa, other: normal adnexae Back/Spine/Pelvis Back: no CVA tenderness Results AMB Test Urine AMB Test Urine Negative Last Edit by WILBER Momin on 08/04/24 15:31 Results Reviewed Results Reviewed: Laboratory Last Values [facility]st Clinic Negative 08/04/24 15:30 Assessment & Plan Assessment & Plan (1) IUD check up: Code(s): Z30.431 - Encounter for routine checking of intrauterine contraceptive device Category: Medical Plan: UPT done in the office was negative. Discussed with the patient the finding on physical exam, IUD string in place, the patient was reassured. Instructions given to patient to call in case of temperature above 100.4, severe cramping/pelvic pain, abnormal discharge or abnormal uterine bleeding or if she misses her menstrual cycle. Otherwise follow-up at her annual exam appointment. All questions answered, the patient verbalized understanding. Orders: Orders AMB HCG Urine Test Today Z32.02 - Encounter for test, result negative Coding Level of Care Code Est Pt Level 3 (04224) Diagnoses IUD check up Z30.431
== END 2024-08-04 15:49 | disposition home or self-care (01) ==
LOC: HO.HWS 14:57
PROVIDERS: PCP Internal Medicine; Visit Provider Obstetrics & Gynecology
DX: Z30.431 Encounter for routine checking of intrauterine contraceptive device (principal); Z32.02 Encounter for pregnancy test, result negative
CPT/HCPCS: 99213

== ENCOUNTER → 2024-08-04 14:57 | Outpatient (BNVA) | payer OTHER, SELFPAY | PROVIDERS: PCP Internal Medicine; Visit Provider Obstetrics & Gynecology | DX: Z30.431 Encounter for routine checking of intrauterine contraceptive device (principal) | CPT/HCPCS: 81025; 99212 ==

== ENCOUNTER → 2024-10-30 15:53 | Outpatient (REF) | payer OTHER, SELFPAY ==
--- OUTSIDE RECORDS SUMMARY | 2024-10-30 16:13 | XMS_ITS | Encounter Summary ---
Author Organization [employer] Address [address] [place] [address] 7 [place] [address] Care Team Providers Care Inspector Production Plastic Parts Name Role Phone Raissa Veras MD Primary Care Provide r Reason for Visit * Reason Comments Med Change Request Encounter Details Date Type Department Care Team ([facility] st Contact Info) Description 01/02/2024 Refill [facility] MED[facility] [address] [place], [place] [phone] Raissa Veras MD [address] [place] [address] Iron deficiency anemia due to chronic blood [...] as of this encounter Plan of Treatment Upcoming Encounters Date Type Department Care Team (Late st Contact Info) Description 12/10/2024 3:30 PM EDT Office Visit [facility] [address] [place] [address] Raissa Veras MD [address] [place] [address] documented as of this encounter Visit Diagnoses Diagnosis Iron deficiency anemia due to chronic blood loss Iron deficiency anemia secondary to blood loss (chronic) documented in this encounter Additional Health Concerns Assessment Noted Time PHQ-9 Depression Total Score: 0 11/14/19 23 11:38 AM EDT documented as of this encounter Care Teams Inspector [employer] Relationship Specialty Start Date End Date Raissa Veras MD [address] [place] [address] PCP - General Family Medicine 10/28/21 documented as of this encounter
--- OUTSIDE RECORDS SUMMARY | 2024-10-30 16:13 | XMS_ITS | Data Portability ---
Author Organization PALOMO ZAVALA MD [facility], Main Office Address [address] [place] [address] Assessment Encounter Date Assessment Date Assessment LastModified by Organization Details LastModified Time 10/21/2024 10/21/2024 Telemedicine. AUDIO. 21 min; in office; pt home in [place] [email or web address] Not available 10/21/2024 16:09:22 Plan of Treatment Reminders Order Date Submit Date Provider Last Modified By Organization Details Last Modified Time Details Appointments WEIGHT MANAGMENT F/U 2024 03:40P Tatianna Urñea MD Not available Not available Not available [...] s B surface Ag), serum 2023 024 [place] [id number] Not available 04/24/2024 09:00:42 amylase + lipase, serum [address], [address] [place] [address], [id number], 04/24/2024 09:00:42 HbA1c (hemoglob in A1c), blood [address], [address] [place] [address], [id number], 04/24/2024 09:00:42 TSH + free T4, serum [address], [address] [place] [address], [id number], 04/24/2024 09:00:42 Referral None recorded. Procedures None recorded. Surgeries None recorded. Imaging None recorded. Medication Orders Zepbound 2.5 mg/0.5 mL subcutane ous pen injector [address]/Pharmacy #[id number], [address] [place], [address], 10/27/2024 17:11:34 Zepbound 2.5 mg/0.5 mL subcutane ous pen injector 2024 025 [facility]/Pharmacy #202, [address] [place], [address], 10/21/2024 15:53:14 rifampin 300 mg capsule 2024 025 [facility]/Pharmacy #[id number], [address] [place], [address], 07/23/2024 15:58:53 Patient TargetsNo targets recorded. Patient InstructionsNo instructions recorded. Reason for Referral None Reported. Results Created Date Observation Date Name Description Value Unit Range Abnormal Flag Note LastModifiedBy Organization Detail LastModifiedTime 04/17/2004/18/2024 TSH+F REE T4 TSH 2.690 uIU/m L 0.450- 4.500 normal Not Available [facility] ([facility]) [address] [place], [address], 04/30/2024 08:09:15 04/17/20 24 04/18/2024 TSH+F REE T4 T4,free(dire ct) 1.32 NG/dL 0.82-1 .77 normal Not Available [facility] ([facility]) [address] [facility], [place], [address], 04/30/2024 08:09:15 04/17/2004/19/2024 QUANT IFERO N-TB GOLD PLUS quantiferon incubation Incuba tion perfor med. Not Available [facility] ([facility]) [address] [facility], [place], [address], 04/30/2024 08:09:15 04/17/2004/19/2024 QUANT IFERO N-TB GOLD [...] ol for the test. Not Available [facility] ([facility]) [address] [place], [address], 04/30/2024 08:09:15 04/17/2004/20/2024 QUANT IFERO N-TB GOLD PLUS quantiferon TB1 Ag value 9.79 IU/mL Not Available [facility] ([facility]) [address] [place], [address], 04/30/2024 08:09:15 04/17/2004/20/2024 QUANT IFERO N-TB GOLD PLUS quantiferon TB2 Ag value 8.97 IU/mL Not Available [facility] ([facility]) [address] [facility], [place], [address], 04/30/2024 08:09:15 04/17/2004/20/2024 QUANT IFERO N-TB GOLD PLUS quantiferon nil value 0.11 IU/mL Not Available [facility] ([facility]) [address] [facility], [place], [address], 04/30/2024 08:09:15 04/17/2004/20/2024 QUANT IFERO N-TB GOLD PLUS quantiferon mitogen value >10.00 IU/mL Not Available [facility] ([facility]) [address] [facility], [place], [address], 04/30/2024 08:09:15 04/17/2004/20/2024 QUANT IFERO N-TB GOLD [...] by Tatianna ford, Tatianna houser, or Tatianna castillo um. Chemi lumin escen ce immun oassa y metho dolog y Not Available [facility] ([facility]) [address] [facility], [place], [address], 04/30/2024 08:09:15 04/17/20 24 04/18/2024 HEMOG LOBIN A1C hemoglobin A1C 5.2 % 4.8-5. 6 normal Predi abete s: 5.7 - 6.4 Diabe pili: >6.4 Glyce arley contr ol for adult s with diabe pili: <7.0 Not Available [facility] ([facility]) [address] [place], [address], 04/30/2024 08:09:16 04/17/20 24 04/18/2024 HCV ANTIB [...] e HCV infec tion. Not Available [facility] ([facility]) [address] [place], [address], 04/30/2024 08:09:16 04/17/20 24 04/18/2024 AST (SGOT ) AST (SGOT) 29 IU/L 0-40 normal Not Available [facility] ([facility]) [address] [place], [address], 04/30/2024 08:09:17 04/17/20 24 04/18/2024 ALT (SGPT ) ALT (SGPT) 30 IU/L 0-32 normal Not Available [facility] ([facility]) [address] [place], [address], 04/30/2024 08:09:17 04/17/20 24 04/18/2024 RPR RPR Non Reacti ve non reacti ve Not Available [facility] ([facility]) [address] [place], [address], 04/30/2024 08:09:18 04/17/20 24 04/18/2024 AMYLA SE amylase 99 U/L 31-110 normal Not Available [facility] ([facility]) [address] [place], [address], 04/30/2024 08:09:18 04/17/20 24 04/18/2024 LIPAS E lipase 42 U/L 14-72 normal Not Available [facility] ([facility]) [address] [place], [address], 04/30/2024 08:09:19 04/17/2004/30/2024 CREAT INE, SERUM creatine, serum TNP mg/dL [facility] was unabl e to colle [...] Drug Admin istra tion. Not Available [facility] ([facility]) [address] [facility], [place], [address], 04/30/2024 08:09:19 04/17/20 24 04/18/2024 HBSAG SCREE N HBsAg screen Negati ve negati ve Not Available [facility] ([facility]) [address] [facility], [place], [address], 04/30/2024 08:09:20 04/17/2004/30/[address] PROBL EM request problem TNP [facility] was unabl e to colle ct suffi cient speci men to perfo rm the follo wing test( s), and is provi ding the patie nt with re-co llect ion instr uctio ns. TEST: [id number] Creat ine, Serum Not Available [facility] ([facility]) [address] [facility], [place], [address], 04/30/2024 08:09:20 05/19/20 24 05/20/2024 CREAT ININE creatinine 0.70 mg/dL 0.57-1 .00 normal Not Available [facility] ([facility]) [address], [place], [address], 05/20/2024 06:05:17 05/19/2005/20/2024 CREAT ININE eGFR 105 mL/mi n/1.7 3 >59 normal Not Available [facility] ([facility]) [address], [place], [address], 05/20/2024 06:05:17 04/04/20 24 04/02/2024 XR, chest , 2 view No observ ation record ed. [email or web address] Not Available 04/09 13:17:06 Result Notes None recorded. 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 Procedures Surgical History None recorded. Imaging Results Imaging Date Name Status LastModified by Organiz ation Details LastModified Time 04/02/2024 XR, chest, 2 view completed [email or web address] Information not available 04/09/2024 13:17:06 Procedure Notes None recorded. Medical Equipment None Reported. Allergies No known drug allergies Medications Name Sig Start Date Stop Date Status Note LastModified by Organization Details LastModified Time amoxicillin 500 mg capsule TAKE 1000 MG (2 X 500 MG) BY MOUTH DAILY FOR 10 DAYS active Not Available Not Available Not Available sumatriptan 50 mg tablet PLEASE SEE ATTACHED FOR DETAILED DIRECTIONS active Not Available Not Available N ot Available losartan 100 mg-hydrochlo rothiazide 25 mg tablet TAKE 1 TABLET BY MOUTH EVERY DAY active Not Available Not Available No t Available rifampin 300 mg capsule Take 2 capsules every day by oral route for 30 days, for LTBI. active Not Available Not Available No t Available meclizine 25 mg tablet TAKE 1 TABLET (25 MG) BY MOUTH NEEDED 3 TIMES A DAY (MORNING, NOON AND AT BEDTIME) FOR DIZZINESS active Not Available Not Available No t Available verapamil ER (SR) 240 mg tablet,exten ded release TAKE 1 TABLET (240 MG) BY MOUTH ONCE PER DAY. DO NOT CRUSH OR CHEW. active Not Available Not Available No t Available gabapentin 100 mg capsule TAKE 3 CAPSULES BY MOUTH DAILY AT BEDTIME FOR RESTLESS LEGS, MAX DAILY DOSE: 300MG active Not Available Not Available No t Available labetalol 100 mg tablet TAKE 1/2 TABLET BY MOUTH TWICE A DAY active Not Available Not Available No t Available loratadine 10 mg tablet TAKE 1 TABLET BY MOUTH EVERY DAY active Not Available Not Available No t Available verapamil ER 240 mg 24 hr capsule,exte nded release TAKE 1 CAPSULE (240 MG) BY [...] Not Available Not Available No t Available Zepbound 2.5 mg/0.5 mL subcutaneous pen injector Inject 2.5 mg every week by subcutaneou s route for 30 days. 2024 active Not Available Not Available Not Avai lable Vitals Date Recorded Body height Heart rate Respiratory rate Body temperature Body mass index (BMI) Body weight Oxygen saturation Oxygen saturation in Arterial blood by Pulse oximetry Systolic blood pressure Diastolic blood pressure Provider Name and Address Organization Details Last Updated DateTime 4 154.94 cm 98 /min 14 /min 98.36 [degF] 33.1 kg/m2 08049.6 6 g 100 % 100 % 114 mm[Hg] 88 mm[Hg] Mercedes UREÑA MD [facility] 4 15:41:31 Date Recorded Body height Heart rate Respiratory rate Body temperature Body mass index (BMI) Body weight Systolic blood pressure Diastolic blood pressure Provider Name and Address Organization Details Last Updated DateTime 5 154.94 cm 95 /min 11 /min 97.8 [degF] 33.1 kg/m2 87920.6 6 g 124 mm[Hg] 74 mm[Hg] Julia UREÑA MD [facility] 5 15:44:49 Date Recorded Body height Body mass index (BMI) Body weight Provider Name and Address Organization Details Last Updated DateTime 10/27/2024 154.94 cm 32.9 kg/m2 61866.07 g Julia UREÑA MD [facility] 10/27/2024 15:59:13 Social History None recorded. Functional Status None recorded. Mental Status None recorded. Family History Nothing Reported. Medical History No medical history recorded. Gynecological HistoryNo gynecological history recorded. 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 previous ones negative, including Chest x ray unremarkab lesuggest repeating quantifero n;if positive, then tx w Rifampin 600mg po qd x 4 monthspreg aidee contraindi cated during txpotentia l side effects reviewed such as allergic reactions, n/v/d, change in urine/swea t color. 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 120109469 R76.12 S/p treatment for LTBI w 4 months of Rifampin which she Completed 04/2024-2024tolera marga well Body mass index 30+ - obesity 035386283 Z68.30 BMI 33.1; 176; HBP/ hyperglyce zabrina/High Trygliceri deslabs.Or angelo Zepbound 2.5 mg sc qwpotentia l side effects reviewed such as injection site reactions, allergic reactions, obstructio n, thyroid, visual changes, n/v/d, abd pain, GERD, constipati on among othershe will come in to get 1rs dose in office.hyd rationgoal s of tx reviewedav oid ETOHDiet and exerciseto call with any concerns or side effectsque stion and concerns reviewed. [id number] Maryam Ureña MD Main Office [address] [place] [address] 10/27/2024 15:46:25 10/27/2024 15:59:35 Body mass index 30+ - obesity 554695739 Z68.30 BMI 33.1; 176; HBP/ hyperglyce zabrina/High Trygliceri desZepboun d 2.5 mg sc qw started. first dose administer ed. tolerated well.potle tial side effects reviewed such as injection site reactions, allergic reactions, obstructio n, thyroid, visual changes, n/v/d, abd pain, gallstone/ gallbladde r; GERD, constipati on among otherto call with any concerns, side effectshyd rationgoal s of tx reviewed and medication mechanism of action.nahomi id ETOHDiet and exerciseto call with any concerns or side effectsque stion and concerns reviewed. Nonspecifi c tuberculin test reaction 702860193 R76.12 S/p treatment for LTBI w 4 months of Rifampin which she Completed 04/2024-2024tolera marga well Health Concerns Section Related Observation LastModified by Organization Detai ls LastModified Time None Recorded Concern Status LastModified by Organization Details LastModified Time None Recorded Advance Directives Directive None Recorded Payers Encounter Date Sequence Insurance Name Policy Number Policy Minor Covered Member ID Minor Member ID Guarantor Name 04/17/2024 1 [facility] [employer] - TOGETHER (MEDICAID HMO) [id number] Naideen Sirkisson [id number] 1 Naideen Sirkisson 07/23/2024 1 [facility] [employer] - TOGETHER (MEDICAID HMO) [id number] Naideen Sirkisson [id number] 1 Naideen Sirkisson 10/21/2024 1 [facility] [employer] - TOGETHER (MEDICAID HMO) [id number] Naideen Sirkisson [id number] 1 Naideen Sirkisson 10/27/2024 1 [facility] [employer] - TOGETHER (MEDICAID HMO) [id number] Naideen Sirkisson [id number] 1 Naideen Sirkisson Notes Date Note Type Note Provider Name and Address Organization Details Recorded Time 04/17/20 24 text/htm l quantiferon positive /02/2024 Chest x ray negno TB sx.no known [...] drink for ETOHno smoking Maryam Ureña MD [address] [place] [address], [phone], PALOMO UREÑA MD [facility] 04/17/2024 22:21:33 07/23/19 25 text/htm l quantiferon positive 03/28/2024 04/02/2024 Chest x ray neg no TB sx. 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 STARTED 04/30/24no side effects. no n/v/d. hydrating. no abd pain. no fatiueno new medsno ETOHno , no in household, and no plans for . has IUDno liver disease; no Hepatitis no SOb. no cough. no fever. no weight loss. no chills. no hemoptysis; no adenopathy Interested in weight loss tx after she completes 4 months or Rifampin tx for LTBI.HBP hxno GB disease; no DM dx, but has had elevated glucosehyperlipidemia weight gain over time. particularly abdomnial area. has tried to lose weight. no pancreatitis hx no thyroid nor medullary cancer hx. no GI obstruction constipation no hx no gallstone nor kidney stone fibroids hx on IUD denies HIV reports HBV immune no med allergies 02/2024 high tryglicerides 198; chol 171 04/2024 eGFR 105; HBV s ag neg; TSH nl; lipase nl; RPR NR; AST/ALT wnl;no drink for ETOH; HCV Neg; HgAic 5.2 no smoking she had blood works 2 weeks ago, and kidney function normal per report. Maryam Ureña MD [address] [place] [address], [phone], PALOMO UREÑA MD [facility] 07/25/2024 15:35:52 10/22/19 25 text/htm l quantiferon positive Chest x ray negcompleted 4 months of Rifampin qd this past month.tolerated wellIUD hx.no ETOHno TB sx.she has completed 2 months of Rifampin 600mg po qd; she needs to complete 2 more months. txtx 04/30/24-08/28/2024 no new meds no ETOH Interested in weight loss txHBP hx no GB disease;no DM dx, but has had elevated glucosehyperlipidemia has tried to lose weight. no pancreatitis hx no thyroid nor medullary cancer hx. no GI obstructionno visual changes constipationno hx no gallstone nor kidney stone denies HIV reports HBV immune no med allergies no smoking target weight loss 130 lbs. 02/2024 high tryglicerides 198; chol 171 04/2024 eGFR 105; HBV s ag neg; TSH nl; lipase nl; RPR NR; AST/ALT wnl; HgAIc 5.2 Maryam Ureña MD [address] [place] [address], [phone], PALOMO UREÑA MD [facility] 10/21/2024 16:13:47 10/28/19 25 text/htm l weight managementwill start Zepbound qw today.feels goodno new meds; med list reviewed,IUD hx.no ETOHno TB sx. completed 4 months of tx w Rifampinlabs 03/2024 unremarkable. HgAic 5.2; TSH wnl; ALT/AST wnl; lipase nl. no infection. HBV s ag neg HCV neg; RPR NR; denies HIV>denies hx pancreatitisl denies obstructiondenies Alcohol; no visual changes; no gallbladder problems; no family hx of thyroid meduallary cancer nor MEN.no constipation. no n/v/d.hx HBP/migraineno allergies to medications Maryam Ureña MD [address] [place] [address], [phone], PALOMO UREÑA MD [facility] 10/28/2024 10:27:43 OBGyn Episode No OBEpisode recorded.
--- OUTSIDE RECORDS SUMMARY | 2024-10-30 16:13 | XMS_ITS | Encounter Summary ---
Author Organization [employer] Address [address] [place] [address] [address] [place] [address] Care Team Providers Care Rail Setter Name Role Phone Raissa Veras MD Primary Care Provide r Reason for Visit * Reason Comments Med Change Request Encounter Details Date Type Department Care Team ([facility] st Contact Info) Description 05/10/2024 Refill [facility] [address] [place], [place] [phone] Raissa Veras MD [address] [place] [address] Acute maxillary sinusitis, recurrence not specified Social [...] Description 12/10/2024 3:30 PM EDT Office Visit [facility] [address] [place] [address] Raissa Veras MD [address] [place] [address] documented as of this encounter Visit Diagnoses Diagnosis Acute maxillary sinusitis, recurrence not specified documented in this encounter Additional Health Concerns Assessment Noted Time PHQ-9 Depression Total Score: 16 024 9:27 AM EDT documented as of this encounter Care Teams Rail Setter Relationship Specialty Start Date End Date Raissa Veras MD [address] [place] [phone] PCP - General Family Medicine 10/28/21 documented as of this encounter
--- OUTSIDE RECORDS SUMMARY | 2024-10-30 16:14 | XMS_ITS | Encounter Summary ---
Author Organization [facility] Address [address] [place] [address] 7 [place] [address] Care Team Providers Care Water Project Manager Name Role Phone Raissa Veras MD Primary Care Provide r Reason for Visit * Reason Comments Med Change Request Encounter Details Date Type Department Care Team ([facility] st Contact Info) Description 05/10/2024 Refill [facility] [address] [place], [place] [phone] Rosalba Howell DO [address] [place] [address] Iron deficiency anemia due to chronic blood [...] Description 12/10/2024 3:30 PM EDT Office Visit [facility] [address] [place] [address] Raissa Veras MD [address] [place] [address] documented as of this encounter Visit Diagnoses Diagnosis Iron deficiency anemia due to chronic blood loss Iron deficiency anemia secondary to blood loss (chronic) documented in this encounter Additional Health Concerns Assessment Noted Time PHQ-9 Depression Total Score: 16 024 9:27 AM EDT documented as of this encounter Care Teams Water Project Manager Relationship Specialty Start Date End Date Raissa Veras MD [address] [place] [phone] PCP - General Family Medicine 10/28/21 documented as of this encounter
--- OUTSIDE RECORDS SUMMARY | 2024-10-30 16:14 | XMS_ITS | Encounter Summary ---
Author Organization [employer] Address [address] [place] [address] [address] [place] [address] Care Team Providers Care Recycling Collections Driver Name Role Phone Raissa Veras MD Primary Care Provide r Reason for Visit * Reason Comments Med Refill Encounter Details Date Type Department Care Team ([facility] Contact Info) Description 02/22/2023 Refill [facility] [address] [place] [phone] Raissa Veras MD [address] [place] [phone] Social History Tobacco Use Types Packs/Day Years [...] Encounters Date Type Department Care Team (Late Contact Info) Description 12/10/2024 3:30 PM EDT Office Visit [facility] [address] [place] [address] Raissa Veras MD [address] [place] [address] documented as of this encounter Visit Diagnoses Not on filedocumented in this encounter Additional Health Concerns Assessment Noted Time PHQ-9 Depression Total Score: 0 11/14/19 23 11:38 AM EDT documented as of this encounter Care Teams Recycling Collections Driver Relationship Specialty Start Date End Date Raissa Veras MD [address] [place] [phone] PCP - General Family Medicine 10/28/21 documented as of this encounter
--- OUTSIDE RECORDS SUMMARY | 2024-10-30 16:14 | XMS_ITS | Clinical Summary ---
Author Organization [employer] Address [address] [place] [address] 7t [place] [address] Care Team Providers Care Video Specialist Name Role Phone Raissa Veras MD Primary [...] for dizziness. 30 tablet 1 4 Active verapamil SR (Calan SR) 240 MG [...] BY MOUTH ONCE PER DAY. 90 tablet 4 Active losartan-hydroCHL OROthiazide (Hyzaar) 100-25 MG tabletIndications :Essential hypertension Take 1 tablet by mouth Once per day. 90 tablet 1 5 09/11/19 26 Active Active Problems Problem Noted Date Diagnosed [...] 06/01/2022 Essential hypertension 06/01/2022 Assessment & Plan (09/10/2024 4:35 PM EDT): Blood pressure seems to be under control I advised to continue with low-sodium diet and to take her medications every day without missing any doses as prescribed I will refill her losartan hydrochlorothiazide 100-25 mg daily Continue to follow-up with nephrology I encouraged her to warp picker the machine for her home sleep studies and do it as soon as possible Assessment & Plan (02/21/2024 4:40 PM EDT): [...] Encounters Date Type Department Care Team Description 09/10/2024 3:15 PM EDT Telemedicine [facility] [address] [place] [phone] Raissa Veras MD Essential hypertension 09/10/2024 Travel from Last 3 Months Immunizations Name Administration [...] your housing situation today? I have dom mainor 02/01/[address] you li [...] 02/21/2024 3:38 PM EDT Plan of Treatment Upcoming Encounters Date Type Department Care Team (Late st Contact Info) Description 12/10/2024 3:30 PM EDT Office Visit [facility] [address] [place] [address] Raissa Veras MD [address] [place], [place] [phone] Health Maintenance Due Date Last Done Comments CT Colonography 1973 Colonoscopy 1973 Colorectal Cancer Screening 1973 FIT DNA/Cologuard 1973 FIT 1973 FOBT 1973 HIV Screening 1973 Sigmoidoscopy 1973 Family Planning (PISQ) 1988 Hepatitis C Screening 11/27/1991 DTaP/Tdap/Td Vaccines (1 - Tdap) 1992 Hepatitis B Vaccines (1 of 3 - 19+ 3-dose series) 1992 Pneumococcal Vaccine: 50+ Years (1 of 1 - PCV) 11/27/2023 Zoster Vaccines (1 of 2) 11/27/2023 Mammogram 09/16/2024 09/17/2023, 01/19/2022 SDOH Screening 01/31/2025 02/01/2024 Alcohol/Substance Use Screening 02/20/2025 02/21/2024 Tobacco Screening 02/20/2025 02/21/2024 Depression Screening 03/05/2025 03/05/2024, 03/05/20 24 Pap Smear 07/02/2026 07/02/2023, 10/23, 11/03/2021 Cervical Cancer Screening 11/03/2026 HPV/Cotest 11/03/2026 [...] 4:09 PM EDT) Triglycerides 198(H) <150 mg/dL [facility] Comment:Desirable Triglyceri de: less than 150 mg/dLBorderline High Triglyceride 150-199 mg/dLHigh Triglyceride: 200-499 mg/dLVery High Triglyceride: greater than or equal to 5OO mg/dL Cholesterol 171 <200 mg/dL [facility] Comment:Desirable Cholestero l: less than 200 mg/dLBorderline High Cholesterol: 200-239 mg/dLHigh Cholesterol: greater than 239 mg/dL LDL Cholesterol Calculated 82 <100 mg/dL [facility] Comment:Desirable LDL: less than 100 mg/dLNear Optimal/Above Optimal LDL: 110- 129 mg/dLBorderline High LDL: 130-159 mg/dLHigh LDL: 160-189 mg/dLVery High LDL: greater than or equal to 190 mg/dL HDL Cholesterol 50 >40 mg/dL [facility] Comment:Desirable HDL: great er than 40 mg/dL Note: This HDL assay may give artificially low results in patients with liver disease. Blood Venous blood specimen / Unknown 11/21/2023 4:09 PM EDT 11/21/2023 5:52 PM EDT Raissa Warner MD LAB BLOOD ORDERABLES Final Result [facility] [address] [place] [address] [phone] * BI Mammogram Screening Tomosynthesis Bilateral (09/17/2023 3:52 PM EDT) Anatomical Region Laterality Modality Breast Bilateral Mammography 09/17/2023 3:52 PM EDT Narrative 10/16/2023 6:18 AM EDT ? [facility] ? [address] ?[place] [address] ? Mammography Report ? Signed ? Patient: Sirkisson,Naideen ?MR#: [id number] ?? [id number] ? : 1975 ?Acct:[id number] ? Age/Sex: 47 / F ?ADM Date: 03/25/24 ? Loc: HO.MAMMO ? Attending Dr: Maximus Siddiqui MD ? Ordering Physician: Maximus Siddiqui MD ?Results: 1Negativ ?? e ? Date of Service: 09/17/23 ?Follow Up: 1 Year From Orig ?? inal Mammogram ? Procedure(s): MM tomosynthesis screening BI ?? Accession Number(s): [id number] ? cc: Raissa Veras MD; Maximus Siddiqui [...] by Alena Rosen MD in OV> ? 04//24 0614 ? DD/ 1552 ? TD/TT: ? Cash Processor: ? Procedure Note Donotuseinterpreter, Image - 10/16/2023 [facility] [address] [place] [address] Mammography Report Signed Patient: Laina BellMR#: [id number] : 1975Acct:[id number] Age/Sex: 47 / FADM Date: 09/17/23 Loc: HO.MAMMO Attending Dr: Maximus Siddiqui MD Ordering Physician: Maximus Siddiqui MDResults: 1Negativ e Date of Service: 09/17/23Follow Up: 1 Year From Orig inal Mammogram Procedure(s): MM tomosynthesis screening BI Accession Number(s): [id number] cc: Raissa Veras MD; Maximus Siddiqui MD [...] in OV> 10/16/23 0614 DD/ 1552 TD/TT: Cash Processor: [facility] External Provider IMG BI PROCEDURES Final Result * Pap Smear (07/02/2023 2:00 PM EST) 07/02/2023 2:00 PM EST 07/04/2023 10:22 AM EST Narrative [facility] - 07/11/2023 11:37 AM EST ----- ------- Name: Laina Bell ?Age/Sex: 47/F ? : 1975 Unit#: [id number] ?? Attend Dr: Maximus Siddiqui MD ?Re07/02/23 ?Status: DEP REF ? Location: HO.LAB ?Disch: ? ----- ------- SPEC : [id number] ?RECD: 07/04/23-1022 ? STATUS: ??SOUT ? REQ NUM: [id number] ? GUMARO: 07/02/23-1400 ? SUBM DR: Maximus Siddiqui MD ? ENTERED: ??07/04/23 ?SP TYPE: Pap Smr ?OTHR DR: Raissa [...] 66, 68) ?? HPV testing performed by [facility], [place], [place]. ??See reference laboratory ?? portion of the EMR for entire report. ?Clinical Information LMP: 06/03/2023 Previous PAP test: 1 year ago, Unknown findings Other history: Abnormal uterine and vaginal bleeding, unspecified ? Material Received ?? ThinPrep-Cervical Copies To: ?? Raissa Veras MD ?? [address] [facility] ?? [place] [address] ?? [phone] ?? Maximus Siddiqui MD ?? [address] [place] [address] [address] ?? [place] [address] ?? [phone] ----- ------- Signed (signature on file) JOSE Billings (ASCP) 07/11/23 1137 ? ----- ------- ? END OF REPORT ? us Generic External Data Provider LAB CYTOLOGY ANITA TYSON Final Result [facility] [address] [place] [phone] * THINPREP TIS PAP AND HPV mRNA E6/E7, CT/NG, TRICH (11/03/2021 11:51 AM EDT) Chlamydia trachomatis RNA, TMA, Urogenital NOT DETECTED NOT DETECTED [facility] Clinical Information: None given [facility] COMMENT SEE COMMENT [facility] Comment: The analytical performance characteristics of this assay, when used to test SurePath(TM) specimens have been determined by [facility]. The modifications have not been cleared or approved by the FDA. This assay has been validated pursuant to the CLIA regulations and is used for clinical purposes. ?? For additional information, please refer to https://education.BrandShield/faq/YFM662 (This link is being provided for information/ [...] with computer assisted technology. [facility] Technical Publications Manager: SEE COMMENT [facility] Comment: JOSE RANKIN(ASCP) CT screening location: [address] ??[address] HPV nRNA E6/E7 Not Detected Not Detected [facility] Comment: Methodology: General Service Officer-Mediated Amplification This assay detects E6/E7 viral messenger RNA (mRNA) from 14 high-risk HPV types (16,18,31,33,35,39,45,51,52,56,58,59,66,68). ? The analytical performance characteristics of this assay have been determined by [facility]. The modifications have not been cleared or approved by the FDA. This assay has been validated pursuant to the CLIA regulations and is used for clinical purposes. ?? For additional information, please refer to http://OSSIANIX.BrandShield/faq/WFD918y6 (This link if provided for information/ educational purposes only.) Interpretation/Re sult: Negative for intraepithelial lesion or malignancy. [facility] LMP: 10/30/2021 [facility] Neisseria gonorrhoeae RNA, TMA, Urogenital NOT DETECTED NOT DETECTED [facility] Prev. BX: NONE GIVEN [facility] Prev. PAP: NONE GIVEN [facility] SOURCE: None given [facility] Statement Of Adequacy: SEE COMMENT [facility] Comment: Satisfactory for evaluation. Endocervical/transformation zone component present. Trichomonas vaginalis, QL, TMA, PAP Vial NOT DETECTED NOT DETECTED [facility] Comment: The analytical performance characteristics of this assay have been determined by [facility]. The modifications have not been cleared or approved by the FDA. This assay has been validated pursuant to the CLIA regulations and is used for clinical purposes. ?? For additional information, please refer to http://OSSIANIX.BrandShield/ faq/Trichomonastma (This link is being provided for information/ educational purposes only.) ?? 11/03/2021 11:5 1 AM EDT Gabriela Dye CNM LAB PATHOLOGY ORDERABLES Final Result [facility] [address] from Last 3 Months or Most Recently Relevant to Health Maintenance Insurance [facility] Care Teams Video Specialist Relationship Specialty Start Date End Date Raissa Veras MD [address] [place] [phone] PCP - General Family Medicine 10/28/21
== END ==
LOC: HO.SL 15:53
PROVIDERS: PCP Internal Medicine; Visit Provider Physician Assistant Medical
DX: Z13.89 Encounter for screening for other disorder (principal)

== ENCOUNTER 2024-11-06 16:16 | Outpatient (REF) | payer OTHER, SELFPAY ==
--- OUTSIDE RECORDS SUMMARY | 2024-11-06 16:18 | XMS_ITS | Clinical Summary ---
Author Organization [employer] Address [address] [place] [address] 7t [place] [address] Care Team Providers Care Promotion Producer Name Role Phone Raissa Veras MD Primary [...] follow-up with nephrology I encouraged her to machine pecan picker the machine for her home sleep [...] Team Description 09/10/2024 3:15 PM EDT Telemedicine [facility] [address] [place] [phone] Raissa Veras MD Essential hypertension 09/10/2024 Travel from Last 3 Months Immunizations Immunization Administration Dates Next Due Influenza injectable quadrivalent [...] 12/10/2024 3:30 PM EDT Office Visit [facility] [address] [place] [address] Raissa Veras MD [address] [place], [place] [phone] Health Maintenance Due Date Last Done Comments [...] patient's age to complete this topic Meningococcal B Vaccine Aged Out No l onger eligible based on patient's age to complete [...] 4:09 PM EDT) Triglycerides 198(H) <150 mg/dL [facility] Comment:Desirable Triglyceri de: less than [...] 190 mg/dL HDL Cholesterol 50 >40 mg/dL [facility] Comment:Desirable HDL: great er than 40 mg/dL Note: This HDL assay may give artificially low results in patients with liver disease. Blood Venous blood specimen / Unknown 11/21/2023 4:09 PM EDT 11/21/2023 5:52 PM EDT Raissa Warner MD LAB BLOOD ORDERABLES Final Result Performing Organization Address City/State/[facility] Co de Phone Number [facility] [address] [place] [address] [phone] * BI Mammogram Screening Tomosynthesis Bilateral (09/17/2023 3:52 PM EDT) Anatomical Region Laterality Modality Breast Bilateral Mammography 09/17/2023 3:52 PM EDT Narrative 10/16/2023 6:18 AM EDT ? [facility] [place] ? [address] [facility] ?[place] [address] ? Mammography Report ? Signed ? Patient: Arabella,Laina ?MR#: [id number] ?? [id number] ? : 1975 ?Acct:[id number] ? Age/Sex: 47 / F ?ADM Date: 03/25/24 ? Loc: HO.MAMMO ? Attending Dr: Maximus Siddiqui MD ? Ordering Physician: Maximus Siddiqui MD ?Results: 1Negativ ?? e ? Date of Service: 09/17/23 ?Follow Up: 1 Year From Orig ?? inal Mammogram ? Procedure(s): MM tomosynthesis screening BI ?? Accession Number(s): [id number] ? cc: Raissa Veras MD; Maximus Siddiqui [...] Rosen MD in OV> ? 10/16/23613 ? DD/ ? TD/TT: ? Service Or Work Dispatcher Chief: ? Procedure Note Donotuseinterpreter, Image - 10/16/2023 [facility] [address] [place] [address] Mammography Report Signed Patient: Laina BellMR#: [id number] : 1975Acct:[id number] Age/Sex: 47 / FADM Date: 09/17/23 Loc: HO.MAMMO Attending Dr: Maximus Siddiqui MD Ordering Physician: Maximus Siddiquiesults: 1Negativ e Date of Service: 09/17/23Follow Up: 1 Year From Orig inal Mammogram Procedure(s): MM tomosynthesis screening BI Accession Number(s): [id number] cc: Raissa Veras MD; Maximus Siddiqui MD [...] in OV> 10/16/23 0614 DD/ 1552 TD/TT: Service Or Work Dispatcher Chief: [facility] External Provider IMG BI PROCEDURES Final Result * Pap Smear (07/02/2023 2:00 PM EST) 07/02/2023 2:00 PM EST 07/04/2023 10:22 AM EST Narrative [facility] - 07/11/2023 11:37 AM EST ----- ------- Name: Laina Bell ?Age/Sex: 47/F ? : 1975 Unit#: [id number] ?? Attend Dr: Maximus Siddiqui MD ?Re07/02/23 ?Status: DEP REF ? Location: .LAB ?Disch: ? ----- ------- SPEC : [id number] ?RECD: 07/04/23-2 ? STATUS: ??SOUT ? REQ NUM: [id number] ? GUMARO: 07/02/23-1400 ? SUBM DR: Maximus Siddqiui MD ? ENTERED: ??07/04/23 ?SP TYPE: Pap [...] 66, 68) ?? HPV testing performed by [facility], [place], [place]. ??See reference laboratory ?? portion of the EMR for entire report. ?Clinical Information LMP: 06/03/2023 Previous PAP test: 1 year ago, Unknown findings Other history: Abnormal uterine and vaginal bleeding, unspecified ? Material Received ?? ThinPrep-Cervical Copies To: ?? Raissa Veras MD ?? [address] [facility] ?? [place] [address] ?? [phone] ?? Maximus Siddiqui MD ?? [address] [place] [address] [address] ?? [place] [address] ?? [phone] ----- ------- Signed (signature on file) JOSE Billings (ASCP) 07/11/23 1137 ? ----- ------- ? END OF REPORT ? us Generic External Data Provider LAB CYTOLOGY ANITA TYSON Final Result [facility] [address] [place] [phone] * THINPREP TIS PAP AND HPV mRNA E6/E7, CT/NG, TRICH (11/03/2021 11:51 AM EDT) Chlamydia trachomatis RNA, TMA, Urogenital NOT DETECTED NOT DETECTED [facility] Clinical Information: None given [facility] COMMENT SEE COMMENT [facility] Comment: The analytical performance characteristics of this assay, when used to test SurePath(TM) specimens have been determined by [facility]. The modifications have not been cleared or approved by the FDA. This assay has been validated pursuant to the CLIA regulations and is used for clinical purposes. ?? For additional information, please refer to https://education.Omni-ID.Tri[employer] Power Technologies/faq/BPL720 (This link is being provided for information/ [...] with computer assisted technology. [facility] Photographic Engineer: SEE COMMENT [facility] Comment: JOSE RANKIN(ASCP) CT screening location: [address] ??[address] HPV nRNA E6/E7 Not Detected Not Detected [facility] Comment: Methodology: Oven Builder-Mediated Amplification This assay detects E6/E7 viral messenger RNA (mRNA) from 14 high-risk HPV types (16,18,31,33,35,39,45,51,52,56,58,59,66,68). ? The analytical performance characteristics of this assay have been determined by [facility]. The modifications have not been cleared or approved by the FDA. This assay has been validated pursuant to the CLIA regulations and is used for clinical purposes. ?? For additional information, please refer to http://[employer]k Interactive.miiCard/faq/ZVG536m3 (This link if provided for information/ educational purposes only.) Interpretation/Re sult: Negative for intraepithelial lesion or malignancy. [facility] LMP: 10/30/2021 [facility] Neisseria gonorrhoeae RNA, TMA, Urogenital NOT DETECTED NOT DETECTED [facility] Prev. BX: NONE GIVEN [facility] Prev. PAP: NONE GIVEN [facility] SOURCE: None given [facility] Statement Of Adequacy: SEE COMMENT [facility] Comment: Satisfactory for evaluation. Endocervical/transformation zone component present. Trichomonas vaginalis, QL, TMA, PAP Vial NOT DETECTED NOT DETECTED [facility] Comment: The analytical performance characteristics of this assay have been determined by [facility]. The modifications have not been cleared or approved by the FDA. This assay has been validated pursuant to the CLIA regulations and is used for clinical purposes. ?? For additional information, please refer to http://education.miiCard/ faq/Trichomonastma (This link is being provided for information/ educational purposes only.) ?? 11/03/2021 11:5 1 AM EDT Gabriela Dye [facility] LAB PATHOLOGY ORDERABLES Final Result [facility] [address] from Last 3 Months or Most Recently Relevant to Health Maintenance Insurance [facility] Care Teams Promotion Producer Relationship Specialty Start Date End Date Raissa Veras MD [address] [place] [phone] PCP - General Family Medicine 10/28/21
--- OUTSIDE RECORDS SUMMARY | 2024-11-06 16:18 | XMS_ITS | Encounter Summary ---
Author Organization [employer] Address [address] [place] [address] 7 [place] [address] Care Team Providers Care Die Mechanic Name Role Phone Raissa Veras MD Primary Care Provide r Reason for Visit * Reason Comments Med Change Request Encounter Details Date Type Department Care Team ([facility] st Contact Info) Description 05/10/2024 Refill [facility] [address] [place], [place] [phone] Rosalba Howell DO [address] [place] [address] Iron deficiency anemia due to chronic blood [...] Description 12/10/2024 3:30 PM EDT Office Visit [facility] [address] [place] [address] Raissa Veras MD [address] [place] [address] documented as of this encounter Visit Diagnoses Diagnosis Iron deficiency anemia due to chronic blood loss Iron deficiency anemia secondary to blood loss (chronic) documented in this encounter Additional Health Concerns Assessment Noted Time PHQ-9 Depression Total Score: 16 024 9:27 AM EDT documented as of this encounter Care Teams Die Mechanic Relationship Specialty Start Date End Date Raissa Veras MD [address] [place] [phone] PCP - General Family Medicine 10/28/21 documented as of this encounter
--- OUTSIDE RECORDS SUMMARY | 2024-11-06 16:18 | XMS_ITS | Encounter Summary ---
Author Organization [employer] Address [address] [place] [address] 7 [place] [address] Care Team Providers Care Senior Relationship Manager Name Role Phone Raissa Veras MD Primary Care Provide r Reason for Visit * Reason Comments Med Refill Encounter Details Date Type Department Care Team ([facility] Contact Info) Description 02/22/2023 Refill [facility] MEDICINE [address] [place] [phone] Raissa Veras MD [address] [place] [phone] Social History Tobacco Use Types Packs/Day Years [...] Description 12/10/2024 3:30 PM EDT Office Visit [facility] [address] [place] [address] Raissa Veras MD [address] [place] [address] documented as of this encounter Visit Diagnoses Not on filedocumented in this encounter Additional Health Concerns Assessment Noted Time PHQ-9 Depression Total Score: 0 11/14/19 23 11:38 AM EDT documented as of this encounter Care Teams Senior Relationship Manager Relationship Specialty Start Date End Date Raissa Veras MD [address] [place] [phone] PCP - General Family Medicine 10/28/21 documented as of this encounter
--- OUTSIDE RECORDS SUMMARY | 2024-11-06 16:18 | XMS_ITS | Data Portability ---
Author Organization PALOMO ZAVALA MD [facility], Main Office Address [address] [place] [address] Assessment Encounter Date Assessment Date Assessment LastModified by Organization Details LastModified Time 10/21/2024 10/21/2024 Telemedicine. AUDIO. 21 min; in office; [email or web address] Not available 10/21/2024 16:09:22 Plan of Treatment Reminders Order Date Submit Date Provider Last Modified By Organization Details Last Modified Time Details Appointments WEIGHT MANAGMENT F/U 2024 03:40P Tatianna Ureña MD Not available Not available [...] s B surface Ag), serum 2023 024 [place] [address] Not available 04/24/2024 09:00:42 amylase + lipase, serum [address], [address] [place] [address], [address], 04/24/2024 09:00:42 HbA1c (hemoglob in A1c), blood [address], [address] [place] [address], [address], 04/24/2024 09:00:42 TSH + free T4, serum [address], [address] [place] [address], [id number], 04/24/2024 09:00:42 Referral None recorded. Procedures None recorded. Surgeries None recorded. Imaging None recorded. Medication Orders Zepbound 2.5 mg/0.5 mL subcutane ous pen injector [address]/Pharmacy #[id number], [address] [place], [address], 10/27/2024 17:11:34 Zepbound 2.5 mg/0.5 mL subcutane ous pen injector 2024 025 [facility]/Pharmacy #[id number], [address] [place], [address], 10/21/2024 15:53:14 rifampin 300 mg capsule 2024 025 [facility]/Pharmacy #[id number], [address] [place], [address], 07/23/2024 15:58:53 Patient TargetsNo targets recorded. Patient InstructionsNo instructions recorded. Reason for Referral None Reported. Results Created Date Observation Date Name Description Value Unit Range Abnormal Flag Note LastModifiedBy Organization Detail LastModifiedTime 04/17/2004/18/2024 TSH+F REE T4 TSH 2.690 uIU/m L 0.450- 4.500 normal Not Available [facility] ([facility]) [address] [place], [address], 04/30/2024 08:09:15 04/17/20 24 04/18/2024 TSH+F REE T4 T4,free(dire ct) 1.32 NG/dL 0.82-1 .77 normal Not Available [facility] ([facility]) [address] [facility], [place], [address], 04/30/2024 08:09:15 04/17/2004/19/2024 QUANT IFERO N-TB GOLD PLUS quantiferon incubation Incuba tion perfor med. Not Available [facility] ([facility]) [address] [facility], [place], [address], 04/30/2024 08:09:15 04/17/2004/19/2024 QUANT IFERO N-TB GOLD [...] ol for the test. Not Available [facility] ([facility]) [address] [place], [address], 04/30/2024 08:09:15 04/17/2004/20/2024 QUANT IFERO N-TB GOLD PLUS quantiferon TB1 Ag value 9.79 IU/mL Not Available [facility] ([facility]) [address] [place], [address], 04/30/2024 08:09:15 04/17/2004/20/2024 QUANT IFERO N-TB GOLD PLUS quantiferon TB2 Ag value 8.97 IU/mL Not Available [facility] ([facility]) [address] [facility], [place], [address], 04/30/2024 08:09:15 04/17/2004/20/2024 QUANT IFERO N-TB GOLD PLUS quantiferon nil value 0.11 IU/mL Not Available [facility] ([facility]) [address] [facility], [place], [address], 04/30/2024 08:09:15 04/17/2004/20/2024 QUANT IFERO N-TB GOLD PLUS quantiferon mitogen value >10.00 IU/mL Not Available [facility] ([facility]) [address] [facility], [place], [address], 04/30/2024 08:09:15 04/17/2004/20/2024 QUANT IFERO N-TB GOLD [...] y metho dolog y Not Available [facility] ([facility]) [address] [facility], [place], [address], 04/30/2024 08:09:15 04/17/20 24 04/18/2024 HEMOG LOBIN A1C hemoglobin A1C 5.2 % 4.8-5. 6 normal Predi abete s: 5.7 - 6.4 Diabe pili: >6.4 Glyce arley contr ol for adult s with diabe pili: <7.0 Not Available [facility] ([facility]) [address] [place], [address], 04/30/2024 08:09:16 04/17/20 24 04/18/2024 HCV ANTIB [...] e HCV infec tion. Not Available [facility] ([facility]) [address] [place], [address], 04/30/2024 08:09:16 04/17/20 24 04/18/2024 AST (SGOT ) AST (SGOT) 29 IU/L 0-40 normal Not Available [facility] ([facility]) [address] [place], [address], 04/30/2024 08:09:17 04/17/20 24 04/18/2024 ALT (SGPT ) ALT (SGPT) 30 IU/L 0-32 normal Not Available [facility] ([facility]) [address] [place], [address], 04/30/2024 08:09:17 04/17/20 24 04/18/2024 RPR RPR Non Reacti ve non reacti ve Not Available [facility] ([facility]) [address] [place], [address], 04/30/2024 08:09:18 04/17/20 24 04/18/2024 AMYLA SE amylase 99 U/L 31-110 normal Not Available [facility] ([facility]) [address] [place], [address], 04/30/2024 08:09:18 04/17/20 24 04/18/2024 LIPAS E lipase 42 U/L 14-72 normal Not Available [facility] ([facility]) [address] [place], [address], 04/30/2024 08:09:19 04/17/2004/30/2024 CREAT INE, SERUM creatine, [...] Drug Admin istra tion. Not Available [facility] ([facility]) [address] [facility], [place], [address], 04/30/2024 08:09:19 04/17/20 24 04/18/2024 HBSAG SCREE N HBsAg screen Negati ve negati ve Not Available [facility] ([facility]) [address] [facility], [place], [address], 04/30/2024 08:09:20 04/17/2004/30/[address] PROBL EM request problem TNP [facility] was unabl e to colle ct suffi cient speci men to perfo rm the follo wing test( s), and is provi ding the patie nt with re-co llect ion instr uctio ns. TEST: [id number] 2 Creat ine, Serum Not Available [facility] ([facility]) [address] [facility], [place], [address], 04/30/2024 08:09:20 05/19/20 24 05/20/2024 CREAT ININE creatinine 0.70 mg/dL 0.57-1 .00 normal Not Available [facility] ([facility]) [address], [place], [address], 05/20/2024 06:05:17 05/19/2005/20/2024 CREAT ININE eGFR 105 mL/mi n/1.7 3 >59 normal Not Available [facility] ([facility]) [address], [place], [address], 05/20/2024 06:05:17 04/04/20 24 04/02/2024 XR, chest , 2 view No observ ation record ed. [email or web address] Not Available 04/09 13:17:06 Result Notes None recorded. 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 Procedures Surgical History None recorded. Imaging Results Imaging Date Name Status LastModified by Organiz ation Details LastModified Time 04/02/2024 XR, chest, 2 view completed Information not available 04/09/2024 13:17:06 Procedure Notes [...] /min 14 /min 98.36 [degF] 33.1 kg/m2 40257.6 6 g 100 % 100 % 114 mm[Hg] 88 mm[Hg] Mercedes UREÑA MD [facility] 4 15:41:31 Date Recorded Body height Heart rate Respiratory rate Body temperature Body mass index (BMI) Body weight Systolic blood pressure Diastolic blood pressure Provider Name and Address Organization Details Last Updated DateTime 5 154.94 cm 95 /min 11 /min 97.8 [degF] 33.1 kg/m2 50983.6 6 g 124 mm[Hg] 74 mm[Hg] Julia UREÑA MD [facility] 5 15:44:49 Date Recorded Body height Body mass index (BMI) Body weight Provider Name and Address Organization Details Last Updated DateTime 10/27/2024 154.94 cm 32.9 kg/m2 14344.07 g Julia UREÑA MD [facility] 10/27/2024 15:59:13 Social History None recorded. Functional Status None recorded. Mental Status None recorded. Family History Nothing Reported. Medical History No medical history recorded. Gynecological HistoryNo gynecological history recorded. 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 previous ones negative, including Chest x ray unremarkab lesuggest repeating quantifero n;if positive, then tx w Rifampin 600mg po qd x 4 monthspreg aidee contraindi cated during txpotentia l side effects reviewed such as allergic reactions, n/v/d, change in urine/swea t color. 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 previous ones negative, including Chest x ray unremarkab lecontinue Rifampin 600mg po qd x 4 months; expected to complete tx around August 28, 2024pregna ncy contraindi cated during tx; hx IUDavoid ETOHhydrat ionlabs on next appointmen tf/u 08/2024 Body mass index 30+ - obesity 908149740 Z68.30 BMI 33.1; HBP/ hyperglyce zabrina/High Trygliceri deslabs.Or angelo Wegovy vs Zepbound once she completes LTBI tx.potenti al side effects reviewedDi et and exercisef/ u 08/2024 [id number] Maryam Ureña MD Main Office [address] [facility] [place] [address] 10/21/2024 15:47:05 10/21/2024 16:08:18 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 [id number] Maryam Ureña MD Main Office [address] [place] [address] 10/27/2024 15:46:25 10/27/2024 15:59:35 Body mass index 30+ - obesity 191360098 Z68.30 BMI 33.1; 176; HBP/ hyperglyce zabrina/High [...] concerns reviewed. Nonspecifi c tuberculin test reaction 012077552 R76.12 S/p treatment for LTBI w 4 [...] Minor Member ID Guarantor Name 04/17/2024 1 [facility] [employer] - TOGETHER (MEDICAID HMO) [id number] Naideen Sirkisson [id number] 1 Naideen Sirkisson 07/23/2024 1 [facility] [employer] - TOGETHER (MEDICAID HMO) [id number] Naideen Sirkisson [id number] 1 Naideen Sirkisson 10/21/2024 1 [facility] [employer] - TOGETHER (MEDICAID HMO) [id number] Naideen Sirkisson [id number] 1 Naideen Sirkisson 10/27/2024 1 [facility] [employer] - TOGETHER (MEDICAID HMO) [id number] Naideen Sirkisson [id number] 1 Naideen Sirkisson Notes Date Note Type [...] has had elevated glucoseno steroid use.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 particularly abdomnial area.has tried to lose weight.no pancreatitis hxno thyroid nor medullary cancer hx.no GI obstructionconstipationno hxno gallstone nor kidney stonefibroids hx on IUDdenies HIVreports HBV immuneno med allergies02/2024 high tryglicerides 198; chol 171 TSH nl 2023no drink for ETOHno smoking Maryam Ureña MD [address] [place] [address], [phone], PALOMO UREÑA MD [facility] 04/17/2024 22:21:33 07/23/19 25 text/htm l quantiferon positive 03/28/2024 04/02/2024 Chest x ray neg no TB sx. 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 Maryam Ureña MD [address] [place] [address], [phone], PALOMO UREÑA MD [facility] 07/25/2024 15:35:52 10/22/19 25 text/htm l quantiferon [...] AST/ALT wnl; HgAIc 5.2 Maryam Ureña MD [address] [place] [address], [phone], PALOMO UREÑA MD [facility] 10/21/2024 16:13:47 10/28/19 25 text/htm l weight [...] HBP/migraineno allergies to medications Maryam Ureña MD [address] [place] [address], [phone], PALOMO UREÑA MD [facility] 10/28/2024 10:27:43 OBGyn Episode No OBEpisode recorded.
--- OUTSIDE RECORDS SUMMARY | 2024-11-06 16:18 | XMS_ITS | Encounter Summary ---
Author Organization [employer] Address [address] [place] [address] 7 [place] [address] Care Team Providers Care Physics Technical Officer Name Role Phone Raissa Veras MD Primary Care Provide r Reason for Visit * Reason Comments Med Change Request Encounter Details Date Type Department Care Team ([facility] st Contact Info) Description 01/02/2024 Refill [facility] [address] [place], [place] [phone] Raissa Veras MD [address] [place] [address] Iron deficiency anemia due to chronic blood [...] Description 12/10/2024 3:30 PM EDT Office Visit [facility] [address] [place] [address] Raissa Veras MD [address] [place] [address] documented as of this encounter Visit Diagnoses Diagnosis Iron deficiency anemia due to chronic blood loss Iron deficiency anemia secondary to blood loss (chronic) documented in this encounter Additional Health Concerns Assessment Noted Time PHQ-9 Depression Total Score: 0 11/14/19 23 11:38 AM EDT documented as of this encounter Care Teams Physics Technical Officer Relationship Specialty Start Date End Date Raissa Veras MD [address] [place] [address] PCP - General Family Medicine 10/28/21 documented as of this encounter
--- OUTSIDE RECORDS SUMMARY | 2024-11-06 16:18 | XMS_ITS | Encounter Summary ---
Author Organization [employer] Address [address] [place] [address] 7 [place] [address] Care Team Providers Care Project Management Specialist Name Role Phone Raissa Veras MD Primary Care Provide r Reason for Visit * Reason Comments Med Change Request Encounter Details Date Type Department Care Team ([facility] st Contact Info) Description 05/10/2024 Refill [facility] [address] [place], [place] [phone] Raissa Veras MD [address] [place] [address] Acute maxillary sinusitis, recurrence not specified Social [...] Description 12/10/2024 3:30 PM EDT Office Visit [facility] [address] [place] [address] Raissa Veras MD [address] [place] [address] documented as of this encounter Visit Diagnoses Diagnosis Acute maxillary sinusitis, recurrence not specified documented in this encounter Additional Health Concerns Assessment Noted Time PHQ-9 Depression Total Score: 16 024 9:27 AM EDT documented as of this encounter Care Teams Project Management Specialist Relationship Specialty Start Date End Date Raissa Veras MD [address] [place] [phone] PCP - General Family Medicine 10/28/21 documented as of this encounter
== END 2024-11-06 16:17 | disposition home or self-care (01) ==
LOC: HO.MAMMO 16:16
PROVIDERS: PCP Internal Medicine; Visit Provider Internal Medicine
DX: Z12.31 Encounter for screening mammogram for malignant neoplasm of breast (principal)
CPT/HCPCS: 77063; 77067

== ENCOUNTER → 2024-11-06 16:30 | Outpatient (BNV) | payer OTHER, SELFPAY | PROVIDERS: PCP Internal Medicine; Visit Provider Internal Medicine | DX: Z12.31 Encounter for screening mammogram for malignant neoplasm of breast (principal) | CPT/HCPCS: 77063; 77067 ==

== ENCOUNTER 2024-12-10 16:23 | Outpatient (REF) | payer OTHER, SELFPAY ==
--- OUTSIDE RECORDS SUMMARY | 2024-12-10 18:09 | XMS_ITS | Encounter Summary ---
Author Organization [employer] Address [address] [place] [address] [address] [place] [address] Care Team Providers Care Sequins Slinger Name Role Phone Raissa Veras MD Primary Care Provide r Reason for Visit * Reason Comments Med Change Request Encounter Details Date Type Department Care Team ([facility] st Contact Info) Description 01/02/2024 Refill [facility] [address] [place], [place] [phone] Raissa Veras MD [address] [place] [address] Iron deficiency anemia due to chronic blood [...] Care Team (Late st Contact Info) Description 12/15/2024 9:00 AM EDT Nurse Only [facility] [address] [place] [address] documented as of this encounter Visit Diagnoses Diagnosis Iron deficiency anemia due to chronic blood loss Iron deficiency anemia secondary to blood loss (chronic) documented in this encounter Additional Health Concerns Assessment Noted Time PHQ-9 Depression Total Score: 0 11/14/19 23 11:38 AM EDT documented as of this encounter Care Teams Sequins Slinger Relationship Specialty Start Date End Date Raissa Veras MD [address] [place] [address] PCP - General Family Medicine 10/28/21 documented as of this encounter
[2024-12-11 08:42] LABS: HBS Num1 1.41 mIU/mL (0-7.99); HBc Num1 0.11 S/CO (0.00-0.79); Hepatitis B Core Antibody Nonreactive (Nonreactive); Hepatitis B Surface Antigen Negative (Negative); ~Hepatitis B Surface Antibody NONREACTIVE (Nonreactive)
== END 2024-12-10 16:24 | disposition home or self-care (01) ==
LOC: HO.HHCL 16:23
PROVIDERS: Visit Provider Internal Medicine
DX: Z78.9 Other specified health status (principal); Z11.59 Encounter for screening for other viral diseases
CPT/HCPCS: 36415; 86704; 86706; 87340

== ENCOUNTER 2024-12-18 11:43 | Outpatient (REF) | payer OTHER, SELFPAY ==
--- NOTE | ~2024-12-18 | MM_ITS ---
EXAMINATION: MM DIAGNOSTIC DIGITAL BREAST TOMOSYNTHESIS, RIGHT Limited right breast ultrasound. CLINICAL INFORMATION: Call back from screening for asymmetry in the retroareolar region of the right breast on MLO view with questioned distortion. Patient has a history of lateral right breast excisional biopsy 20 years ago for benign tissue. COMPARISON: Mammography: [facility] on PACS. TECHNIQUE: Digital breast tomosynthesis is performed in both the craniocaudal and mediolateral oblique views along with computer-aided detection (CAD). Synthesized 2D images are generated from the tomosynthesis. FINDINGS: The breasts are heterogeneously dense, which may obscure small masses (ACR BI-RADS breast composition Category c). Previously seen asymmetry in the retroareolar region of the right breast on MLO view does not persist on additional imaging projections. No distortion is seen. There are no significant masses, abnormal calcifications, or other abnormalities. Targeted color Doppler ultrasound scanning in the lateral right breast from 7-11 o'clock demonstrates normal fibronodular breast tissue. There is no sonographic abnormal findings. MM/MM tomosynthesis added views R IMPRESSION: There are no significant changes from prior study. ASSESSMENT: BI-RADS BI-RADS 1 - Negative RECOMMENDATION: 1 year F/U Results were provided to the patient at time of visit by the technologist. This patient's information was entered into a reminder system with a target due date for their next mammogram. Electronically signed by: Tamela Steel DO 12/18/2024 12:18 PM EDT
--- OUTSIDE RECORDS SUMMARY | 2024-12-18 14:08 | XMS_ITS | Encounter Summary ---
Author Organization [employer] Address [address] [place] [address] [address] [place] [address] Care Team Providers Care Arabic Teacher Name Role Phone Raissa Veras MD Primary Care Provide r Reason for Visit * Reason Comments Med Change Request Encounter Details Date Type Department Care Team ([facility] st Contact Info) Description 01/02/2024 Refill [facility] [address] [place], [place] [phone] Raissa Veras MD [address] [place] [address] Iron deficiency anemia due to chronic blood [...] Care Team (Late st Contact Info) Description 02/19/2025 11:00 AM EDT Nurse Only [facility] [address] [place] [address] documented as of this encounter Visit Diagnoses Diagnosis Iron deficiency anemia due to chronic blood loss Iron deficiency anemia secondary to blood loss (chronic) documented in this encounter Additional Health Concerns Assessment Noted Time PHQ-9 Depression Total Score: 0 11/14/19 23 11:38 AM EDT documented as of this encounter Care Teams Arabic Teacher Relationship Specialty Start Date End Date Raissa Veras MD [address] [place] [address] PCP - General Family Medicine 10/28/21 documented as of this encounter
== END 2024-12-18 11:44 | disposition home or self-care (01) ==
LOC: HO.MAMMO 11:43
PROVIDERS: PCP Internal Medicine; Visit Provider Internal Medicine
DX: N64.89 Other specified disorders of breast (principal); Z30.431 Encounter for routine checking of intrauterine contraceptive device
CPT/HCPCS: 76642; 77061; 77065; 81025; 99212

== ENCOUNTER → 2024-12-18 12:00 | Outpatient (BNV) | payer OTHER, SELFPAY | PROVIDERS: PCP Internal Medicine; Visit Provider Internal Medicine | DX: R92.321 Mammographic fibroglandular density, right breast (principal) | CPT/HCPCS: 76642; 77061; 77065 ==

== ENCOUNTER 2024-12-18 12:20 | Outpatient (AMB) | payer OTHER, SELFPAY ==
--- NOTE | 2024-12-18 12:30 | A.OFFVIS_ITS ---
Intake Visit Reasons: iud check ok per Nellie Raise Driller: Raise Driller Present (Sarah) Accompanied by: Self / Same As Patient Allergies carvedilol Allergy (Mild, Verified 12/18/24 12:31) Dizziness Bleach (Sodium Hypochlorite) (BLEACH (SODIUM HYPOCHLORITE)) Allergy (Unknown, Verified 12/18/24 12:31) RASH verapamil Adverse Reaction (Mild, Verified 12/18/24 12:31) Palpitations HPI Comments Details: The patient is presenting for IUD check after 1 st period following IUD insertion. The patient has no complaints periods are normal, not painful, and flow is normal. [facility] Medical History Anxiety with depression Acute maxillary sinusitis Sickle cell trait Iron deficiency anemia due to chronic blood loss Other chest pain Pelvic pain Dizziness Amenorrhea Dyspareunia in female Hypersomnia HTN (hypertension) Surgical History Hx of lumpectomy Family History Father CAD (coronary artery disease) CHF (congestive heart failure) Mother CAD (coronary artery disease) CHF (congestive heart failure) Social History Alcohol intake: never Patient Tobacco Use Status: Never used Tobacco Review of Systems Const All systems reviewed & are unremarkable except as noted in HPI and below Reports as per HPI and Reports no additional complaints GI Reports no additional complaints Reports no additional complaints Physical Exam General: Yes no CVA tenderness External Female Exam: normal external appearance and normal appearance of the urethra Speculum Exam - Vagina: normal appearance of the vagina, normal palpation, no lesions and no masses Speculum Exam - Cervix: normal appearance of the cervix, normal palpation, no lesions, no masses, nontender and Other cervical findings present (IUD thread seen in place) Bimanual exam- vagina & uterus: normal bimanual exam, normal palpation, uterine size normal, normal palpation, uterine shape normal, No Cervical tenderness present and non-tender Bimanual Exam- Adnexa, other: normal adnexae Back/Spine/Pelvis Back: no CVA tenderness Assessment & Plan Assessment & Plan (1) IUD check up: Code(s): Z30.431 - Encounter for routine checking of intrauterine contraceptive device Category: Medical Plan: UPT done in the office was negative. Discussed with the patient the finding on physical exam, IUD string in place, the patient was reassured. Instructions given to patient to call in case of temperature above 100.4, severe cramping/pelvic pain, abnormal discharge or abnormal uterine bleeding or if she misses her menstrual cycle. All questions answered, the patient verbalized understanding. Coding Level of Care Code Est Pt Level 3 (60269) Diagnoses IUD check up Z30.431
== END 2024-12-18 12:52 | disposition home or self-care (01) ==
LOC: HO.HWS 12:20
PROVIDERS: PCP Internal Medicine; Visit Provider Obstetrics & Gynecology
DX: Z30.431 Encounter for routine checking of intrauterine contraceptive device (principal); Z32.02 Encounter for pregnancy test, result negative
CPT/HCPCS: 99213

== ENCOUNTER 2025-03-01 10:44 | Emergency (ER) | payer OTHER, SELFPAY ==
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
[2025-03-01 10:55] VITALS: BP 151/69; PULSE 84; RESP 16; TEMP 36.9; O2SAT 98; BMI 27.8
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
--- OUTSIDE RECORDS SUMMARY | 2025-03-01 11:59 | XMS_ITS | Encounter Summary ---
Author Organization [employer] Address [address] [place] [address] [address] [place] [address] Care Team Providers Care Rand Maker Name Role Phone Raissa Veras MD Primary Care Provide r Reason for Visit * Reason Comments Med Refill Encounter Details Date Type Department Care Team ([facility] st Contact Info) Description 02/22/2023 Refill [facility] MEDICINE [address] [place], [place] [phone] Raissa Veras MD [address] [place] [address] Social History Tobacco Use Types Packs/Day Years [...] documented as of this encounter Care Teams Rand Maker Relationship Specialty Start Date End Date Raissa Veras MD [address] [place] [address] PCP - General Family Medicine 10/28/21 documented as of this encounter
--- OUTSIDE RECORDS SUMMARY | 2025-03-01 11:59 | XMS_ITS | Encounter Summary ---
Author Organization [employer] Address [address] [place] [address] [address] [place] [address] Care Team Providers Care Filament Tester Name Role Phone Raissa Veras MD Primary Care Provide r Reason for Visit * Reason Comments Med Change Request Encounter Details Date Type Department Care Team ([facility] st Contact Info) Description 01/02/2024 Refill [facility] [address] [place], [place] [phone] Raissa Veras MD [address] [place] [address] Iron deficiency anemia due to chronic blood [...] documented as of this encounter Care Teams Filament Tester Relationship Specialty Start Date End Date Raissa Veras MD [address] [place] [id number] PCP - General Family Medicine 10/28/21 documented as of this encounter
--- OUTSIDE RECORDS SUMMARY | 2025-03-01 11:59 | XMS_ITS | Encounter Summary ---
Author Organization [employer] Address [address] [place] [address] [address] [place] [address] Care Team Providers Care Manager Switch Name Role Phone Raissa Veras MD Primary Care Provide r Reason for Visit * Reason Comments Med Change Request Encounter Details Date Type Department Care Team ([facility] st Contact Info) Description 05/10/2024 Refill [facility] MED[facility]INE [address] [place], [place] [phone] Rosalba Howell DO [address] [place] [address] Iron deficiency anemia due to chronic blood [...] documented as of this encounter Care Teams Manager Switch Relationship Specialty Start Date End Date Raissa Veras MD [address] [place] [id number] PCP - General Family Medicine 10/28/21 documented as of this encounter
--- OUTSIDE RECORDS SUMMARY | 2025-03-01 11:59 | XMS_ITS | Clinical Summary ---
Author Organization [facility] [employer] Address [address] [place] [address] 7[address] [place] [address] Care Team Providers Care Senior Marketing Manager Name Role Phone Raissa Veras MD [...] for dizziness. 30 tablet 1 4 Active ferrous gluconate (Fergon) 324 (38 Fe) [...] 90 tablet 1 5 09/11/19 26 Active verapamil SR (Calan SR) 240 MG ER tabletIndications :Resistant hypertension TAKE 1 TABLET BY MOUTH EVERY DAY. DO NOT CRUSH OR CHEW. 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 Initial [...] prescriptions without first consulting health care provider _ Igave patient information regarding sleep.neuro medicine office that is following her Assessment & Plan (09/10/2024 4:35 PM EDT): Blood pressure seems to be under control I advised to continue with low-sodium diet and to take her medications every day without missing any doses as prescribed I will refill her losartan hydrochlorothiazide 100-25 mg daily Continue to follow-up with nephrology I encouraged her to picking tech the machine for her home sleep studies [...] Encounters Date Type Department Care Team Description 12/30/2024 Results Follow-Up [facility] [address] [place] [address] Raissa Veras MD Hepatitis B Surface Antibody, Qualitative, Hepatitis B Core Antibody, Total, Hepatitis B surface antigen, EIA 12/28/2024 Refill [facility] [address] [place] [phone] Raissa Veras MD Resistant hypertension 12/18/2024 Orders Only [address] [address] Raissa Veras MD 12/10/2024 3:30 PM EDT Office Visit [address] [address] Raissa Veras MD 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..] Sign Reading Time Taken Comments Blood Pressure 126/84 12/10/2024 3:43 PM EDT Pulse 72 12/10/2024 3:43 PM EDT Temperature 36.6 C (97.8 F) 12/10/2024 3:43 PM EDT Respiratory Rate 16 12/10/2024 3:43 PM EDT Oxygen Saturation 98% 02/21/2024 3:38 PM EDT Inhaled Oxygen Concentration - - Weight 76.7 kg (169 lb) 12/10/2024 3:43 PM EDT Height 160 cm (5' 3 ) 12/10/2024 3:43 PM EDT Body Mass Index 29.94 12/10/2024 3:43 PM EDT Plan of Treatment Health Maintenance Due Date Last Done Comments CT Colonography 1973 Colonoscopy 1973 Colorectal Cancer Screening 1973 FIT DNA/Cologuard 1973 FIT 1973 FOBT 1975 HIV Screening 1975 Sigmoidoscopy 1973 Alcohol/Substance Use Screening 1985 Family Planning (PISQ) 1988 Hepatitis C Screening 11/27/1991 DTaP/Tdap/Td Vaccines (1 - Tdap) 1992 Hepatitis B Vaccines (1 of 3 - 19+ 3-dose series) 1992 Pneumococcal Vaccine: 50+ Years (1 of 1 - PCV) 11/27/2023 Zoster Vaccines (1 of 2) 11/27/2023 Depression Monitoring 09/02/2024 03/05/2024, 024 Tobacco Screening 02/20/2025 02/21/2024 Influenza Vaccine (#1) 2025 , 04/16/2023, 04/16/2023 Disability Screening 12/10/2025 12/10/2024 SDOH Screening 12/10/2025 12/10/2024 Mammogram 12/18/2025 12/18/2024, 10/23, 09/17/2023, Additional history exists Pap Smear 07/02/2026 07/02/2023, 10/23, 11/03/2021 Cervical Cancer Screening 11/03/2026 HPV/Cotest 11/03/2026 11/03/2021 Lipid Panel 11/20/2028 11/21/2023, 10/18/2021 RSV Patients and Patients Aged 60 years or older (1 - 1-dose 75+ series) 2048 COVID-19 Vaccine Completed 03/10/2024, , 07/19/2021, Additional history exists HIB Vaccines Aged Out No longer eligi [...] Procedure Name Priority Date/Time Associated Diagnosis Comments BI US BREAST LIMITED RIGHT Routine 12/18/2024 11:50 AM EDT BI MAMMOGRAM DIAGNOSTIC TOMOSYNTHESIS ADDED VIEW RIGHT Routine 12/18/2024 11:50 AM EDT HEPATITIS B SURFACE ANTIGEN, EIA Routine 12/10/2024 4:25 PM EDT 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 HEPATITIS B CORE AB TOTAL Routine 12/10/2024 4:25 PM EDT 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 HEPATITIS B SURFACE ANTIBODY, QUALITATIVE Routine 12/10/2024 4:25 PM EDT 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 [place]as[place], [place] [address] Mammography Report Signed Patient: Laina Bell MR#: [id number] : 1975 Acct:[id number] Age/Sex: 49 / F ADM Date: 12/18/24 Loc: HO.MAMMO Attending Dr: Raissa Warner MD Ordering Physician: Raissa Veras MD Results: 1Negative Date of Service: 12/18/24 Follow Up: 1 Year From Orig ina Mammogram Procedure(s): MM tomosynthesis added views R Accession Number(s): [id number] cc: Raissa Veras MD EXAMINATION: MM DIAGNOSTIC DIGITAL BREAST TOMOSYNTHESIS, RIGHT Limited right breast ultrasound. CLINICAL INFORMATION: Call back from screening for asymmetry in the retroareolar region of the right breast on MLO view with questioned distortion. Patient has a history of lateral right breast excisional biopsy 20 years ago for benign tissue. COMPARISON: Mammography: [facility] on PACS. TECHNIQUE: Digital breast tomosynthesis is performed in both the craniocaudal and mediolateral oblique views along with computer-aided detection (CAD). Synthesized 2D images are generated from the tomosynthesis. FINDINGS: The breasts are heterogeneously dense, which may obscure small masses (ACR BI-RADS breast composition Category c). Previously seen asymmetry in the retroareolar region of the right breast on MLO view does not persist on additional imaging projections. No distortion is seen. There are no significant masses, abnormal calcifications, or other abnormalities. Targeted color Doppler ultrasound scanning in the lateral right breast from 7-11 o'clock demonstrates normal fibronodular breast tissue. There is no sonographic abnormal findings. MM/MM tomosynthesis added views R IMPRESSION: There are no significant changes from prior study. ASSESSMENT: BI-RADS BI-RADS 1 - Negative RECOMMENDATION: 1 year F/U Results were provided to the patient at time of visit by the technologist. This patient's information was entered into a reminder system with a target due date for their next mammogram. Electronically signed by: Tamela Steel DO 12/18/2024 12:18 PM EDT Dictated By: Tamela Steel DO Signed By: <Electronically signed by Tamela Steel DO in OV> 12/18/24 1218 DD/ 1150 TD/TT: 12/18/24 1213 Veneer Jointer Operator: Procedure Note Donotuseinterpreter, Image - 12/18/2024 [facility] [address] Villasen[place], [place] [address] Mammography Report Signed Patient: Laina BellMR#: [id number] : 1975Acct:[id number] Age/Sex: 49 / FADM Date: 12/18/24 Loc: HO.MAMMO Attending Dr: Raissa Warner MD Ordering Physician: Raissa Veras MDResults: 1Negative Date of Service: 12/18/24Follow Up: 1 Year From Orig inal Mammogram Procedure(s): MM tomosynthesis added views R Accession Number(s): [id number] cc: Raissa Veras MD EXAMINATION: MM DIAGNOSTIC DIGITAL BREAST TOMOSYNTHESIS, RIGHT Limited right breast ultrasound. CLINICAL INFORMATION: Call back from screening for asymmetry in the retroareolar region of the right breast on MLO view with questioned distortion. Patient has a history of lateral right breast excisional biopsy 20 years ago for benign tissue. COMPARISON: Mammography: [facility] on PACS. TECHNIQUE: Digital breast tomosynthesis is performed in both the craniocaudal and mediolateral oblique views along with computer-aided detection (CAD). Synthesized 2D images are generated from the tomosynthesis. FINDINGS: The breasts are heterogeneously dense, which may obscure small masses (ACR BI-RADS breast composition Category c). Previously seen asymmetry in the retroareolar region of the right breast on MLO view does not persist on additional imaging projections. No distortion is seen. There are no significant masses, abnormal calcifications, or other abnormalities. Targeted color Doppler ultrasound scanning in the lateral right breast from 7-11 o'clock demonstrates normal fibronodular breast tissue. There is no sonographic abnormal findings. MM/MM tomosynthesis added views R IMPRESSION: There are no significant changes from prior study. ASSESSMENT: BI-RADS BI-RADS 1 - Negative RECOMMENDATION: 1 year F/U Results were provided to the patient at time of visit by the technologist. This patient's information was entered into a reminder system with a target due date for their next mammogram. Electronically signed by: Tamela Steel DO 12/18/2024 12:18 PM EDT Dictated By: Tamela Steel DO Signed By: <Electronically signed by Tamela Steel DO in OV> 12/18/24 1218 DD/ 1150 TD/TT: 12/18/24 1213 Veneer Jointer Operator: us Raissa Warner MD IMG BI PROCEDURES Fin al Result * BI US Breast Limited Right (12/18/2024 11:50 AM EDT) Anatomical Region Laterality Modality Breast Right Ultrasound 12/18/2024 11:5 0 AM EDT Narrative 12/18/2024 12:21 PM EDT [facility] [place] [address] Ultrasound Report Signed Patient: Laina Bell MR#: [id number] : 1975 Acct:[id number] Age/Sex: 49 / F ADM Date: 12/18/24 Loc: HO.MAMMO Attending Dr: Raissa Warner MD Ordering Physician: Raissa Veras MD Date of Service: 12/18/24 Procedure(s): US breast RT limited mamm only Accession Number(s): [id number] cc: Raissa Veras MD EXAMINATION: MM DIAGNOSTIC DIGITAL BREAST TOMOSYNTHESIS, RIGHT Limited right breast ultrasound. CLINICAL INFORMATION: Call back from screening for asymmetry in the retroareolar region of the right breast on MLO view with questioned distortion. Patient has a history of lateral right breast excisional biopsy 20 years ago for benign tissue. COMPARISON: Mammography: Priors on PACS. TECHNIQUE: Digital breast tomosynthesis is performed in both the craniocaudal and mediolateral oblique views along with computer-aided detection (CAD). Synthesized 2D images are generated from the tomosynthesis. FINDINGS: The breasts are heterogeneously dense, which may obscure small masses (ACR BI-RADS breast composition Category c). Previously seen asymmetry in the retroareolar region of the right breast on MLO view does not persist on additional imaging projections. No distortion is seen. There are no significant masses, abnormal calcifications, or other abnormalities. Targeted color Doppler ultrasound scanning in the lateral right breast from 7-11 o'clock demonstrates normal fibronodular breast tissue. There is no sonographic abnormal findings. US/US breast RT limited mamm only IMPRESSION: There are no significant changes from prior study. ASSESSMENT: BI-RADS BI-RADS 1 - Negative RECOMMENDATION: 1 year F/U Results were provided to the patient at time of visit by the technologist. This patient's information was entered into a reminder system with a target due date for their next mammogram. Electronically signed by: Tamela Steel DO 12/18/2024 12:18 PM EDT RP Dictated By: Tamela Steel DO Signed By: <Electronically signed by Tamela Steel DO in OV> 12/18/24 1218 DD/ 1150 TD/TT: 12/18/24 1213 Veneer Jointer Operator: Procedure Note Donotuseinterpreter, Image - 12/18/[facility] [address] [place] [address] Ultrasound Report Signed Patient: Laina Bell#: [id number] : 1975Acct:[id number] Age/Sex: 49 / FADM Date: 12/18/24 Loc: HO.MAMMO Attending Dr: Raissa Warner MD Ordering Physician: Raissa Veras MD Date of Service: 12/18/24 Procedure(s): US breast RT limited mamm only Accession Number(s): [id number] cc: Raissa Veras MD EXAMINATION: MM DIAGNOSTIC DIGITAL BREAST TOMOSYNTHESIS, RIGHT Limited right breast ultrasound. CLINICAL INFORMATION: Call back from screening for asymmetry in the retroareolar region of the right breast on MLO view with questioned distortion. Patient has a history of lateral right breast excisional biopsy 20 years ago for benign tissue. COMPARISON: Mammography: Priors on PACS. TECHNIQUE: Digital breast tomosynthesis is performed in both the craniocaudal and mediolateral oblique views along with computer-aided detection (CAD). Synthesized 2D images are generated from the tomosynthesis. FINDINGS: The breasts are heterogeneously dense, which may obscure small masses (ACR BI-RADS breast composition Category c). Previously seen asymmetry in the retroareolar region of the right breast on MLO view does not persist on additional imaging projections. No distortion is seen. There are no significant masses, abnormal calcifications, or other abnormalities. Targeted color Doppler ultrasound scanning in the lateral right breast from 7-11 o'clock demonstrates normal fibronodular breast tissue. There is no sonographic abnormal findings. US/US breast RT limited mamm only IMPRESSION: There are no significant changes from prior study. ASSESSMENT: BI-RADS BI-RADS 1 - Negative RECOMMENDATION: 1 year F/U Results were provided to the patient at time of visit by the technologist. This patient's information was entered into a reminder system with a target due date for their next mammogram. Electronically signed by: Tamela Steel DO 12/18/2024 12:18 PM EDT Dictated By: Tamela Steel DO Signed By: <Electronically signed by Tamela Steel DO in OV> 12/18/24 1218 DD/ 1150 TD/TT: 12/18/24 1213 Veneer Jointer Operator: Raissa Warner MD IMG US PROCEDURES Fin al Result * Hepatitis B surface antigen, EIA (12/10/2024 4:25 PM EDT) Hepatitis B Surface Ag Negative Negative [facility] Blood Venous blood specimen / Unknown 12/10/2024 4:25 PM EDT 12/10/2024 5:57 PM EDT Raissa Warner MD LAB BLOOD ORDERABLES Final Result [facility] [address] [place] [phone] * Hepatitis B Core Antibody, Total (12/10/2024 4:25 PM EDT) Hepatitis B Core Antibody Nonreactive Nonreactive [facility] Blood Venous blood specimen / Unknown 12/10/2024 4:25 PM EDT 12/10/2024 5:57 PM EDT Raissa Warner MD LAB BLOOD ORDERABLES Final Result Performing Organization Address [facility]/ZIP Co de Phone Number [facility] [address] [place] [phone] * Hepatitis B Surface Antibody, Qualitative (12/10/2024 4:25 PM EDT) ~Hepatitis B Surface Antibody NONREACTIVE Nonreactive [facility] Comment:Nonreactive: < 8.00 mIU/mL Blood Venous blood specimen / Unknown 12/10/2024 4:25 PM EDT 12/10/2024 5:57 PM EDT Raissa Warner MD LAB BLOOD ORDERABLES Final Result Performing Organization Address City/[facility] Co de Phone Number [facility] [address] [place] [phone] * (ABNORMAL) Lipid Panel, Standard (11/21/2023 4:09 PM EDT) Triglycerides 198(H) <150 mg/dL [facility] Comment:Desirable Triglyceri de: less than 150 mg/dLBorderline High Triglyceride 150-199 mg/dLHigh Triglyceride: 200-499 mg/dLVery High Triglyceride: greater than or equal to 5OO mg/dL Cholesterol 171 <200 mg/dL [facility] Comment:Desirable Cholestero l: less than 200 mg/dLBorderline High Cholesterol: 200-239 mg/dLHigh Cholesterol: greater than 239 mg/dL LDL Cholesterol Calculated 82 <100 mg/dL [facility] Comment:Desirable LDL: less than 100 mg/dLNear Optimal/Above Optimal LDL: 110- 129 mg/dLBorderline High LDL: 130-159 mg/dLHigh LDL: 160-189 mg/dLVery High LDL: greater than or equal to 190 mg/dL HDL Cholesterol 50 >40 mg/dL [facility] Comment:Desirable HDL: great er than 40 mg/dL Note: This HDL assay may give artificially low results in patients with liver disease. Blood Venous blood specimen / Unknown 11/21/2023 4:09 PM EDT 11/21/2023 5:52 PM EDT Raissa Warner MD LAB BLOOD ORDERABLES Final Result [facility] [address] [place] [phone] * Pap Smear (07/02/2023 2:00 PM EST) 07/02/2023 2:00 PM EST 07/04/2023 10:22 AM EST Bubba [facility] - 07/11/2023 11:37 AM EST ----- ------- Name: Laina Bell Age/Sex: 47/F : 1975 Unit#: [id number] Attend Dr: Maximus Siddiqui MD Re07/02/23 Status: DEP REF Location: .LAB Disch: ----- ------- SPEC : [id number] RECD: 07/04/23 STATUS: CACHORRO MEDLEY NUM: [id number] GUMARO: 07/02/23-[address]: Maximus Siddiqui MD ENTERED: 07/04/23 SP TYPE: Pap Smr OTHR DR: Raissa Veras MD ORDERED: Pap Smear Interpretation Satisfactory for evaluation. Negative for intraepithelial lesion or malignancy. HPV mRNA E6/E7: NOT DETECTED This assay detects E6/E7 viral messenger RNA (mRNA) from 14 high-risk HPV types (16, 18, 31, 33, 35, 39, 45, 51, 52, 56, 58, 59, 66, 68) HPV testing performed by [facility], [place], [place]. See reference laboratory portion of the EMR for entire report. Clinical Information LMP: 06/03/2023 Previous PAP test: 1 year ago, Unknown findings Other history: Abnormal uterine and vaginal bleeding, unspecified Material Received ThinPrep-Cervical Copies To: Raissa Veras MD [address] [place] [phone] Maximus Siddiqui MD [address] [place] [address] [facility] [place] [phone] ----- ------- Signed (signature on file) JOSE Billings (ASCP) 07/11/23 1137 ----- ------- END OF REPORT us Generic External Data Provider LAB CYTOLOGY ORDE RABLES Final Result [facility] [address] [place] [phone] [phone] * THINPREP TIS PAP AND HPV mRNA E6/E7, CT/NG, TRICH (11/03/2021 11:51 AM EDT) Chlamydia trachomatis RNA, TMA, Urogenital NOT DETECTED NOT DETECTED [facility] Clinical Information: None given [facility] COMMENT SEE COMMENT [facility] Comment: The analytical performance characteristics of this assay, when used to test SurePath(TM) specimens have been determined by [facility]. The modifications have not been cleared or approved by the FDA. This assay has been validated pursuant to the CLIA regulations and is used for clinical purposes. For additional information, please refer to https://BoatSetter.Zhongjia MRO/faq/NQL630 (This link is being provided for information/ educational purposes only.) COMMENT SEE COMMENT [facility] Comment: EXPLANATORY NOTE: The Pap is a screening test for cervical cancer. It is not a diagnostic test and is subject to false negative and false positive results. It is most reliable when a satisfactory sample, regularly obtained, is submitted with relevant clinical findings and history, and when the Pap result is evaluated along with historic and current clinical information. COMMENT: This Pap test has been evaluated with computer assisted technology. [facility] Data Center Operator: SEE COMMENT [facility] Comment: MAA, CT(ASCP) CT screening location: [address] [address] HPV nRNA E6/E7 Not Detected Not Detected [facility] Comment: Methodology: Intellectual Property Legal Assistant-Mediated Amplification This assay detects E6/E7 viral messenger RNA (mRNA) from 14 high-risk HPV types (16,18,31,33,35,39,45,51,52,56,58,59,66,68). The analytical performance characteristics of this assay have been determined by [facility]. The modifications have not been cleared or approved by the FDA. This assay has been validated pursuant to the CLIA regulations and is used for clinical purposes. For additional information, please refer to http://education.Per[employer] Technologies.AOMi/faq/KKN783k9 (This link if provided for information/ educational purposes only.) Interpretation/Re sult: Negative for intraepithelial lesion or malignancy. [facility] LMP: 10/30/2021 [facility] Neisseria gonorrhoeae RNA, TMA, Urogenital NOT DETECTED NOT DETECTED [facility] Prev. BX: NONE GIVEN [facility] Prev. PAP: NONE GIVEN [facility] SOURCE: None given [facility] Statement Of Adequacy: SEE COMMENT [facility] Comment: Satisfactory for evaluation. Endocervical/transformation zone component present. Trichomonas vaginalis, QL, TMA, PAP Vial NOT DETECTED NOT DETECTED [facility] Comment: The analytical performance characteristics of this assay have been determined by [facility]. The modifications have not been cleared or approved by the FDA. This assay has been validated pursuant to the CLIA regulations and is used for clinical purposes. For additional information, please refer to http://education.Zhongjia MRO/ faq/Trichomonastma (This link is being provided for information/ educational purposes only.) 11/03/2021 11:5 1 AM EDT us Gabriela RAMON LAB PATHOLOGY ORDERABLES Final Result [facility] [address] from Last 3 Months or Most Recently Relevant to Health Maintenance Insurance [facility] Care Teams Senior Marketing Manager Relationship Specialty Start Date End Date Raissa eVras MD [address] [place] [phone] PCP - General Family Medicine 10/28/21
--- OUTSIDE RECORDS SUMMARY | 2025-03-01 11:59 | XMS_ITS | Clinical Summary ---
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 10/15/2023 Active losartan-hydroCH LOROthiazide (HYZAAR) 100-25 mg per tablet Take 1 tablet by mouth every morning. 03/26/2023 Active ferrous gluconate 324 mg (38 mg elemental) tablet Take by mouth. 01/03/2024 Active Social History Tobacco Use Types Packs/Day Years Used Date Smoking Tobacco: Never Smokeless Tobacco: Never Alcohol Use Standard Drinks/Week Comments Yes 0 (1 standard drink = 0.6 oz pur e alcohol) Education Answer Date Recorded Are you interested in more education? Not on florian e 10/20/2022 Are you concerned about learning? Not on file 10/20/2022 No 10/20/2022 No 10/20/2022 Digital Access Answer Date Recorded No 11/18/2022 No 11/18/2022 Reliable internet access at home? Not on file 11/18/2022 Device with a working camera? Not on file Comments No Sex and Gender Information Value Date Recorded Sex Assigned at Female 08/18/2019 5:43 PM EST Legal Sex Female 4:52 PM EST Gender Identity Female 08/18/2019 5:43 PM EST Sexual Orientation Not on file Last Filed Vital Signs Vital Sign Reading Time Taken Comments Blood Pressure 134/80 12/03/2023 10:40 AM EDT Pulse 73 08/18/2019 10:04 PM EST Temperature 36.6 C (97.9 F) 08/18/2019 5:40 PM EST Respiratory Rate 16 08/18/2019 10:04 PM EST Oxygen Saturation 100% 08/18/2019 10:04 PM EST Inhaled Oxygen Concentration - - Weight 77.6 kg (171 lb) 12/03/2023 10:40 AM EDT Height 157.5 cm (5' 2 ) 12/03/2023 10:40 AM EDT Body Mass Index 31.28 12/03/2023 10:40 AM EDT Plan of Treatment Health Maintenance Due Date Last Done Comments Adult Td,Tdap Booster 1973 DEPRESSION SCREENING 1985 HEPATITIS C SCREENING 11/27/1991 HIV ONE-TIME SCREENING (18-65 YEARS) 11/27/1991 MAMMOGRAM 2013 COLOGUARD 2018 COLONOSCOPY 2018 COLORECTAL CANCER SCREENING 2018 FIT TEST 2018 FOBT 2018 SIGMOIDOSCOPY 2018 VIRTUAL COLONOSCOPY 2018 SCREENING FOR DIABETES 08/18/2022 08/18/2019 PNEUMOCOCCAL VACCINES (50+ years) (1 of 1 - PCV) 11/27/2023 ZOSTER VACCINES (1 of 2) 11/27/2023 INFLUENZA VACCINE (#1) 2025 04/16/2023 COVID-19 VACCINE ( - 2024- season) 2025 04/16/2023, 07/19/2021, 11/09/2020, Additional history exists PAP SMEAR 07/02/2026 07/02/2023 LIPID PANEL 11/20/2028 11/21/2023 SMOKING STATUS SCREENING (Once After 26 Yrs) Completed 12/03/2023 HEPATITIS A VACCINES Aged Out No long er eligible based on patient's age to complete this topic HIB VACCINES Aged Out No longer eligi ble based on patient's age to complete this topic MENINGOCOCCAL VACCINES (ACWY) Aged Out No longer eligible based on patient's age to complete this topic MENINGOCOCCAL VACCINES (B) Aged Out N o longer eligible based on patient's age to complete this topic Medical Devices Not on file Insurance [employer] DIRECT [employer] DIRECT [employer] DIRECT [employer] DIRECT [employer] DIRECT [employer] DIRECT Care Teams Oil Well Perforator Operator Relationship Specialty Start Date End Date Raissa Simmons MD [address] [place] [id number] PCP - General Internal Medicine 12/03/23 Additional Source Comments The information contained in this document represents components of the legal health record. It is not the complete legal health record.[facility]
--- OUTSIDE RECORDS SUMMARY | 2025-03-01 11:59 | XMS_ITS | Encounter Summary ---
Author Organization [facility] Address [address] [place] [address] [address] [place] [address] Care Team Providers Care Station Attendant Name Role Phone Raissa Veras MD Primary Care Provide r Reason for Visit * Reason Comments Med Change Request Encounter Details Date Type Department Care Team ([facility] st Contact Info) Description 05/10/2024 Refill [facility] MEDICINE [address] [place], [place] [phone] Raissa Veras MD [address] [place] [address] Acute maxillary sinusitis, recurrence not specified Social [...] documented as of this encounter Care Teams Station Attendant Relationship Specialty Start Date End Date Raissa Veras MD [address] [place] [address] PCP - General Family Medicine 10/28/21 documented as of this encounter
[2025-03-01 13:49] VITALS: BP 118/83; PULSE 80; RESP 18; TEMP 36.9; O2SAT 100
== END 2025-03-01 14:54 | disposition home or self-care (01) ==
PROVIDERS: Emergency Provider Emergency Medicine; PCP Internal Medicine
DX: S13.4XXA Sprain of ligaments of cervical spine, initial encounter (principal); S16.1XXA Strain of muscle, fascia and tendon at neck level, initial encounter; V49.88XA Car occupant (driver) (passenger) injured in other specified transport accidents, initial encounter; Y93.89 Activity, other specified; Y92.488 Other paved roadways as the place of occurrence of the external cause; Y99.8 Other external cause status
CPT/HCPCS: 70450; 72125; 99283; 99284

== ENCOUNTER → 2025-03-01 12:13 | Outpatient (BNV) | payer OTHER, SELFPAY | PROVIDERS: Emergency Provider Emergency Medicine; PCP Internal Medicine; Visit Provider Radiology Diagnostic Radiology | DX: M54.2 Cervicalgia (principal); R51.9 Headache, unspecified; V89.2XXA Person injured in unspecified motor-vehicle accident, traffic, initial encounter | CPT/HCPCS: 70450; 72125 ==